=== PATIENT | female | born 1985 | race Caucasian/White ===

== ENCOUNTER → 2018-01-21 12:39 | Outpatient (CLI) | payer OTHER, SELFPAY ==
--- NOTE | 2018-01-21 12:40 | DI.US.S_ITS ---
PROCEDURE: US PELVIC COMPLETE INDICATIONS: PELVIC PAIN, CHECK IUD POSITION TECHNIQUE: Real-time scanning was performed of the pelvic organs, with image documentation. Additional endovaginal scanning was necessary due to incomplete visualization of the adnexal and endometrial structures by transabdominal scanning. COMPARISON: [facility], , PELVIC COMPLETE, 07/24/2016, 12:26. FINDINGS: Transabdominal scanning: Limited scanning through the kidneys shows no hydronephrosis. Left kidney however is only partially visualized No pathologic free abdominal or pelvic fluid. Endovaginal scanning: Uterus: Uterus is normal in size at 10.2 x 4.0 x 5.1 cm. The endometrium measures not well-seen due to IUD mm in combined thickness. IUD appears appropriately positioned Ovaries: Right ovary measures 3.0 x 3.1 x 2.6 cm unremarkable. Left ovary measures 3.1 x 3.1 x 1.8 cm and is only seen transabdominally, otherwise unremarkable IMPRESSION: Appropriately positioned IUD Dictated by: Morris Mcallister M.D. on 01/21/2018 at 15:06 Approved by: Morris Mcallister M.D. on 01/21/2018 at 15:08
== END ==
PROVIDERS: PCP Internal Medicine; Visit Provider Internal Medicine
DX: R10.2 Pelvic and perineal pain (principal); Z97.5 Presence of (intrauterine) contraceptive device
CPT/HCPCS: 76830; 76856

== ENCOUNTER → 2018-03-27 15:06 | Outpatient (CLI) | payer OTHER, SELFPAY ==
--- NOTE | 2018-03-27 15:12 | DI.RAD.S_ITS ---
PROCEDURE: XR LUMBAR SPINE MIN 4V INDICATIONS: pain TECHNIQUE: 5 views of the lumbar spine were acquired. COMPARISON: None. FINDINGS: Bones: 5 nonrib-bearing vertebrae are present. There is normal bony alignment. No vertebral body compression fractures. No suspicious bony lesions. Soft tissues: Overlying bowel gas pattern is normal. No suspicious soft tissue calcifications. Oblique images: No pars defects. IMPRESSION: Normal for age, source of current symptoms is not seen. Dictated by: Bakari Mendiola M.D. on 03/27/2018 at 15:51 Approved by: Bakari Mendiola M.D. on 03/27/2018 at 15:51
== END ==
PROVIDERS: PCP Family Medicine; Visit Provider Family Medicine
DX: T14.8XXA Other injury of unspecified body region, initial encounter (principal); V89.2XXA Person injured in unspecified motor-vehicle accident, traffic, initial encounter
CPT/HCPCS: 72110

== ENCOUNTER → 2018-09-12 10:16 | Outpatient (CLI) | payer OTHER, SELFPAY | PROVIDERS: PCP Family Medicine; Visit Provider Physician Assistant | DX: R30.0 Dysuria (principal); R10.9 Unspecified abdominal pain | CPT/HCPCS: 87210 ==

== ENCOUNTER → 2018-09-12 11:57 | Outpatient (CLI) | payer OTHER, SELFPAY ==
[2018-09-12 13:02] LABS: Add Manual Diff / Slide Review NO; Basophils Absolute Auto 0 /uL (0-100); Basophils Percent Auto 0.8 % (0-2); Eosinophils Absolute Auto 100 /uL (0-450); Eosinophils Percent Auto 1.1 % (2-4); Hematocrit 40.7 % (36-46); Hemoglobin 13.8 g/dL (12.0-16.0); Lymphocytes Absolute Auto 2200 /uL (1100-4500); Lymphocytes Percent Auto 43.1 % (25-40); Mean Corpuscular Hemoglobin 30.3 PG (26-34); Mean Corpuscular Volume 88.9 fL (80-100); Monocytes Absolute Auto 500 /uL (0-900); Monocytes Percent Auto 9.7 % (3-14); Neutrophils Absolute Auto 2300 /uL (1500-7000); Neutrophils Percent Auto 45.3 % (50-75); Platelet Count 225 X10^3/uL (150-400); Red Blood Cell Count 4.57 X10^6/uL (4.0-5.2); White Blood Cell Count 5.1 X10^3/uL (4.5-11.0)
[2018-09-12 13:34] LABS: Alanine Aminotransferase 178 IU/L (9-52); Albumin Globulin Ratio 1.8 (1.0-2.8); Alkaline Phosphatase 46 U/L (38-126); Amylase 73 U/L (30-110); Aspartate Aminotransferase 113 IU/L (14-36); Bilirubin Total 0.5 mg/dL (0.2-1.3); Blood Urea Nitrogen 12 mg/dL (7-17); Calcium 10.1 mg/dL (8.4-10.2); Carbon Dioxide 29 mmol/L (22-32); Chloride 101 mmol/L (98-107); Estimated Glomerular Filt Rate > 60.0 mL/min (>60); Globulin 2.8 g/dL (1.7-4.1); Glucose 76 mg/dL (70-100); HEMOLYSIS < 15 (0-50); Lipase 122 U/L (23-300); Potassium 4.7 mmol/L (3.4-5.1); Sodium 140 mmol/L (137-145); Total Protein 7.8 g/dL (6.3-8.2)
== END ==
PROVIDERS: PCP Internal Medicine; Visit Provider Physician Assistant
DX: R10.9 Unspecified abdominal pain (principal)
CPT/HCPCS: 36415; 80053; 82150; 83690; 85025

== ENCOUNTER 2020-07-22 04:27 | Emergency (ER) | payer OTHER, SELFPAY ==
--- NOTE | 2020-07-22 04:34 | ED.GENADULT ---
HPI - General Adult General Chief complaint: Dental/Oral Stated complaint: tooth pulled tues, still lots of bleeding Time Seen by Provider: 07/22/20 04:33 Source: patient Mode of arrival: Wheelchair Limitations: no limitations History of Present Illness HPI narrative: Patient is a 35-year-old female here for evaluation of pain and bleeding from the site where she had a tooth pulled 2 days ago. She stated that she initially had a root canal that failed and she became infected. She had the tooth pulled 2 days ago by her dental provider. She also mentioned that she thinks she was told that she had a bone graft on was she is not 100% sure this. She states that it it tastes like the blood in her mouth and she also has been spitting up blood. She is not having problems breathing. She is also very concerned about infection. She is also in quite a bit of discomfort. Was not given any pain medication. Related Data Home Medications Medication Instructions Recorded Confirmed levonorgestrel 20 mcg/24 hours (6 INTRAUTERINE each 09/12/18 02/14/19 yrs) 52 mg intrauterine device Allergies Allergy/AdvReac Type Severity Reaction Status Date / Time latex [LATEX] Allergy Mild MILD RASH Verified 02/14/19 09:17 Review of Systems Constitutional Constitutional: Denies fever(s) and Denies headache(s) ENT Ears, Nose, Mouth, and Throat: Reports dental pain, Denies otalgia, Denies facial pain and Denies headache(s) Cardiovascular Cardiovascular: Denies chest pain and Denies dyspnea Respiratory Respiratory: Denies dyspnea Gastrointestinal Gastrointestinal: Denies abdominal pain and Denies change in bowel habits Integumentary/Breasts Skin/Breast: Denies rash Neurologic Neurologic: Denies behavioral changes and Denies headache(s) Psychiatric Psychiatric: Reports anxiety and Denies behavioral changes Hematologic/Lymphatic On Anticoagulants: No Allergic/Immunologic Allergic/Immunologic: Denies urticaria Patient History Medical History Chicken pox Depression (~2005) Headache Kidney stones (~2010) Migraines (~2008) Painful menstrual periods Surgical History (Updated 07/22/20 @ 05:19 by Rikki Pérez DO) Anesthesia History of tonsillectomy (~2001) Status post delivery (10/23/11) Status post delivery (07/14/13) Family History Grandfather No problems noted. Social History Smoking Status: Never smoker Smoking Status: Never smoker Exam Initial Vital Signs Initial Vital Signs: Vital Signs Temperature 97 F L 07/22/20 04:35 Pulse Rate 107 H 07/22/20 04:35 Respiratory Rate 17 07/22/20 04:35 Blood Pressure 160/96 H 07/22/20 04:35 Pulse Oximetry 100 07/22/20 04:35 Const General: cooperative and anxious Limitations: mental status not altered HENMT Head: normal to inspection Nose: external nose normal Face and sinus: normal facial exam Mouth: oral mucosae normal, lip normal, tongue normal and No drooling Teeth and gingiva: other (Extraction left lower molar site appears well) Throat: posterior oropharynx normal and no uvular edema Resp Effort & Inspection: normal respiratory effort Skin Lesions: no lesions Rashes: no rashes Neuro General: patient alert and patient awake Psych Speech and Movement: restless Affect: anxious affect Course Orders Ordered: Discontinued Medications Hydrocodone Bitart/Acetaminophen (Hydrocodone/Acet 5/325 Tablet) 1 tab PO NOW ONE Stop: 07/22/20 04:44 Last Admin: 07/22/20 04:47 Dose: 1 tab Documented by: DBROYLE Hydrocodone Bitart/Acetaminophen (Hydrocodone/Acet 5/325 Prepack) 1 bottle MISC SEEINSTR ONE Stop: 07/22/20 05:10 Last Admin: 07/22/20 05:15 Dose: 1 bottle Documented by: Vital Signs Vital signs: Vital Signs - 8 hr 07/22/20 04:35 07/22/20 05:23 Temperature 97 F L Pulse Rate 107 H 81 Respiratory Rate 17 18 Blood Pressure 160/96 H 127/68 Pulse Oximetry 100 99 Medical Decision Making MDM Narrative Medical decision making narrative: The extraction site appears well and as expected for 2 days postprocedure. The stitches are in place. There does appear to be a material in the tooth cavity. Most likely a Gelfoam type material. This is sutured into place. There is no active bleeding. The rest of her oral exam is unremarkable as well. She is not having any problems breathing. I do not think that she needs antibiotics. She also seems to be very uncomfortable so will send her home with pain medication. She stated that she was going to contact her dentist later today for follow-up. She is given return precautions and follow-up instructions. She expressed understanding and agreement. Discharge Plan Departure Patient Disposition: Home Clinical Impression: History of recent dental procedure, Pain, dental Instructions: DI for Dental Pain Activity Restrictions/Additional Instructions: The extraction site looks well and looks as expected for being 2 days after the procedure. There was no active bleeding here in the emergency department. There is also no indication of any infection. I recommend that you contact your dental provider later today for a follow-up. You can continue to take 600-800 mg of ibuprofen every 8 hours as needed for discomfort. You can also take Tylenol every 4-6 hours as needed for pain as well. Please follow the instructions on the bottle as the dose of Tylenol varies depending on the formulation that you purchase. Use the pain medication as needed. Return to the emergency department for any new or worsening symptoms Prescriptions: No Action Mirena 20 mcg/24 hours (5 yrs) 52 mg intrauterine device intrauterine RF: 0 Referrals: Fiona Doe ARNP [Primary Care Provider] -
[2020-07-22 04:35] VITALS: BP 160/96; PULSE 107; RESP 17; TEMP 36.1; O2SAT 100; BMI 25.9
[2020-07-22] MEDS: HYDROCODONE/ACET 5/325 TABLET 1 TAB PO (04:47)
[2020-07-22] MEDS: HYDROCODONE/ACET 5/325 PREPACK 1 BOTTLE MISC (05:15)
[2020-07-22 05:23] VITALS: BP 127/68; PULSE 81; RESP 18; O2SAT 99
== END 2020-07-22 05:35 | disposition home or self-care (01) ==
PROVIDERS: Emergency Provider Emergency Medicine; PCP Internal Medicine
DX: K08.89 Other specified disorders of teeth and supporting structures (principal)
CPT/HCPCS: 99283

== ENCOUNTER → 2020-12-11 19:13 | Outpatient (CLI) | payer OTHER, SELFPAY ==
[2020-12-11 19:40] LABS: COVID19 -Nasal RAPID POSITIVE (Negative)
== END ==
PROVIDERS: PCP Internal Medicine; Visit Provider Nurse Practitioner
DX: U07.1 COVID-19 (principal)
CPT/HCPCS: 87635

== ENCOUNTER 2021-08-29 21:51 | Emergency (ER) | payer OTHER, SELFPAY ==
[2021-08-29 21:53] VITALS: BP 117/81; PULSE 115; RESP 18; TEMP 36.7; O2SAT 98
--- NOTE | 2021-08-29 21:58 | DI.RAD.S_ITS ---
PROCEDURE: XR KNEE LT 3V INDICATIONS: fall TECHNIQUE: 3 views of the knee were acquired. COMPARISON: None. FINDINGS: Bones: No fractures or dislocations. No suspicious bony lesions. Soft tissues: No joint effusion. No suspicious soft tissue calcifications. IMPRESSION: 1. No fracture or dislocation. Dictated by: Gordo Broussard M.D. on 08/29/2021 at 23:23 Approved by: Gordo Broussard M.D. on 08/29/2021 at 23:23
--- NOTE | 2021-08-29 21:58 | DI.RAD.S_ITS ---
PROCEDURE: XR HIP W PEL IF DONE LT 2V INDICATIONS: fall TECHNIQUE: AP pelvis with lateral view of the left hip. COMPARISON: None. FINDINGS: Bones: No fractures or dislocations. Pelvic ring appears intact. No suspicious bony lesions. Soft tissues: The visualized bowel gas pattern is normal. No suspicious soft tissue calcifications. IMPRESSION: 1. No fracture or dislocation. Dictated by: Gordo Broussard M.D. on 08/29/2021 at 23:22 Approved by: Gordo Broussard M.D. on 08/29/2021 at 23:23
[2021-08-30] VITALS (12 sets, daily range): BP systolic 117–148; BP diastolic 60–82; PULSE 72–89; O2SAT 97–100
[2021-08-30] MEDS: ACETAMINOPHEN 325 MG TABLET PO (00:14)
[2021-08-30] MEDS: IBUPROFEN 400 MG TABLET PO (00:15)
--- NOTE | 2021-08-30 02:40 | ED.LOWEXIN ---
HPI - Extremity Injury (Lower) General Chief Complaint: Extremity Injury, Lower Stated Complaint: FELL OF STAIRS LEFT SIDE INJURY Time Seen by Provider: 08/30/21 00:09 Source: patient Mode of arrival: Ambulatory History of Present Illness HPI Narrative: Otherwise healthy 36-year-old woman who was rushing down a flight of 5 stairs into her garage when she slipped and fell landing on her left flank and outer left hip. She was able to get up but then slit of give and re-injuring the same area. She had difficulty getting up this time and presents to the emergency room complaining of left hip flank and knee pain. She denies hitting her head and she is not currently on blood thinners. She has no chest pain or shortness of breath but is finding that she is having significant flank in hip pain to the point that it is difficult to stand on the leg. She is able to walk moved in with some pain appreciated. She describes no loss of consciousness, no abdominal pain no headache. She is complaining of significant pain in describes as a 9/10 in the large ecchymotic area over her outer left thigh. She has had x-rays of the hip pelvis and knee all of which were unremarkable but she still feels that she is unable to bear weight. Related Data Home Medications Medication Instructions Recorded Confirmed levonorgestrel 20 mcg/24 hours (7 INTRAUTERINE each 09/12/18 12/11/20 yrs) 52 mg intrauterine device (Mirena) Previous Rx's Medication Instructions Recorded oxycodone-acetaminophen 5 mg-325 1 tab PO Q6H PRN #14 tab 08/30/21 mg tablet Allergies Allergy/AdvReac Type Severity Reaction Status Date / Time latex [LATEX] Allergy Mild MILD RASH Verified 12/11/20 19:27 Review of Systems Review of Systems Narrative: Remainder of complete review of systems is otherwise unremarkable except for that included in the HPI. Patient History Medical History Chicken pox Depression (~2005) Headache Kidney stones (~2010) Migraines (~2008) Painful menstrual periods Surgical History Anesthesia History of tonsillectomy (~2001) Status post delivery (10/23/11) Status post delivery (07/14/13) Family History Grandfather No problems noted. Social History Smoking Status: Never smoker Smoking Status: Never smoker alcohol intake frequency: a few times a month Substance Use Type: does not use Exam Initial Vital Signs Initial Vital Signs: Vital Signs Temperature 98.1 F 08/29/21 21:53 Pulse Rate 115 H 08/29/21 21:53 Respiratory Rate 18 08/29/21 21:53 Blood Pressure 117/81 08/29/21 21:53 Pulse Oximetry 98 08/29/21 21:53 General: Healthy appearing, anxious and in significant pain but Able to give a complete and coherent history. Well-nourished well-developed HEENT: Moist mucous membranes, normal sclera with reactive pupils, Neck: No midline cervical spine tenderness, supple Respiratory: Lungs are clear to auscultation, no wheezing no rales no rhonchi. Full and symmetrical air movement Cardiac: Regular rate and rhythm no murmurs no bruits Chest: No bruising, contusion or tenderness to palpation Abdomen: Soft, nontender, good bowel tones, no flank pain Skin: Warm and dry, no rashes Neurologic: Grossly neurologically intact with no obvious asymmetries or abnormalities Extremities: Minor abrasion to the lateral aspect of the left knee with a large contusion to the left upper outer thigh the suggesting a deeper hematoma with no obvious abrasion. She is in fact able to walk to the bathroom but does have a significantly antalgic gait. Psych: Cooperative, appropriate insight and affect Course Orders Ordered: ED Orders 08/29/21 21:58 XR hip w pel if done LT 2V Stat XR knee LT 3V Stat 08/30/21 03:00 Complete Blood Count AUTO DIFF Stat Comprehensive Metabolic Panel Stat 08/30/21 03:57 CT abdomen pelvis w con Stat 08/30/21 04:20 Ictotest Urine Stat Urine Microscopic Stat Hydromorphone HCl (Hydromorphone 0.5 Mg Inj) 0.5 mg IV Q15MIN PRN PRN Reason: Pain, Last Admin: 08/30/21 03:02 Dose: 0.5 mg Documented by: MICK Discontinued Medications Acetaminophen (Acetaminophen 325 Mg Tablet) 325 mg PO NOW ONE Stop: 08/30/21 00:10 Last Admin: 08/30/21 00:14 Dose: 325 mg Documented by: GREGORY Fentanyl (Fentanyl 100 Mcg/2 Ml Inj) 50 mcg IV NOW ONE Stop: 08/30/21 05:19 Last Admin: 08/30/21 05:23 Dose: 50 mcg Documented by: MICK Sodium Chloride (Normal Saline 0.9%) 1,000 mls @ 1,000 mls/hr IV BOLUS ONE Stop: 08/30/21 03:51 Last Infusion: 08/30/21 05:33 Dose: 0 mls/hr Documented by: Admin: 08/30/21 03:03 Dose: 1,000 mls/hr Documented by: MICK Ibuprofen (Ibuprofen 400 Mg Tablet) 400 mg PO NOW ONE Stop: 08/30/21 00:10 Last Admin: 08/30/21 00:15 Dose: 400 mg Documented by: GREGORY Ondansetron HCl (Ondansetron 4 Mg/2 Ml Inj) 4 mg IV NOW ONE Stop: 08/30/21 02:53 Last Admin: 08/30/21 03:03 Dose: 4 mg Documented by: MICK Vital Signs Vital signs: Vital Signs - 8 hr 08/30/21 00:05 08/30/21 00:06 08/30/21 03:07 Pulse Rate 89 88 81 Blood Pressure 131/63 Pulse Oximetry 99 99 99 08/30/21 03:17 08/30/21 03:30 08/30/21 04:00 Pulse Rate 84 78 81 Blood Pressure 148/82 H 129/68 130/76 Pulse Oximetry 99 97 98 MDM - Extremity Injury (Lower) Lab Data Result diagrams: 08/30/21 03:00 08/30/21 03:00 Labs: Lab Results 08/30/21 08/30/21 08/30/21 Range/Units 03:00 03:00 04:20 WBC 4.9 (4.5-11.0) X10^3/uL RBC 4.48 (4.0-5.2) X10^6/uL Hgb 12.9 (12.0-16.0) g/dL Hct 38.2 (36-46) % MCV 85.2 (80-100) fL MCH 28.7 (26-34) PG MCHC 33.7 (30-36) % RDW 13.6 (11.6-14.8) % Plt Count 284 (150-400) X10^3/uL Neut % (Auto) 47.3 L (50-75) % Lymph % (Auto) 40.1 H (25-40) % [place] % (Auto) 10.3 (3-14) % Eos % (Auto) 1.2 L (2-4) % Baso % (Auto) 1.1 (0-2) % Neut # (Auto) 2300 (0019-9676) /uL Lymph # (Auto) 1900 (6212-0977) /uL [place] # (Auto) 500 (0-900) /uL Eos # (Auto) 100 (0-450) /uL Baso # (Auto) 100 (0-100) /uL Sodium 140 (137-145) mmol/L Potassium 3.8 (3.4-5.1) mmol/L Chloride 104 (98-107) mmol/L Carbon Dioxide 27 (22-32) mmol/L BUN 14 (7-17) mg/dL Creatinine 0.60 (0.52-1.04) mg/dL Estimated GFR > 60 (>60) mL/min BUN/Creatinine Ratio 23.3 H (6-22) Glucose 118 H (70-100) mg/dL Calcium 8.9 (8.4-10.2) mg/dL Total Bilirubin 0.3 (0.2-1.3) mg/dL AST 54 H (14-36) IU/L ALT 67 H (<35) IU/L Alkaline Phosphatase 48 (38-126) U/L Total Protein 7.5 (6.3-8.2) g/dL Albumin 4.5 (3.5-5.0) g/dL Globulin 3.0 (1.7-4.1) g/dL Albumin/Globulin Ratio 1.5 (1.0-2.8) Ur Bilirubin Confirm (Negative) Urine RBC None seen (0-5/HPF) Urine WBC None seen (0-5/HPF) Ur Squamous Epith Cells 0-1 /hpf (0-5/HPF) Urine Bacteria Few (2-10) H (None) Urine Mucus 3+ H (Negative) Ur Culture Indicated? Cult not indicated 08/30/21 Range/Units 04:20 WBC (4.5-11.0) X10^3/uL RBC (4.0-5.2) X10^6/uL Hgb (12.0-16.0) g/dL Hct (36-46) % MCV (80-100) fL MCH (26-34) PG MCHC (30-36) % RDW (11.6-14.8) % Plt Count (150-400) X10^3/uL Neut % (Auto) (50-75) % Lymph % (Auto) (25-40) % [place] % (Auto) (3-14) % Eos % (Auto) (2-4) % Baso % (Auto) (0-2) % Neut # (Auto) (6302-5437) /uL Lymph # (Auto) (8003-8262) /uL [place] # (Auto) (0-900) /uL Eos # (Auto) (0-450) /uL Baso # (Auto) (0-100) /uL Sodium (137-145) mmol/L Potassium (3.4-5.1) mmol/L Chloride (98-107) mmol/L Carbon Dioxide (22-32) mmol/L BUN (7-17) mg/dL Creatinine (0.52-1.04) mg/dL Estimated GFR (>60) mL/min BUN/Creatinine Ratio (6-22) Glucose (70-100) mg/dL Calcium (8.4-10.2) mg/dL Total Bilirubin (0.2-1.3) mg/dL AST (14-36) IU/L ALT (<35) IU/L Alkaline Phosphatase (38-126) U/L Total Protein (6.3-8.2) g/dL Albumin (3.5-5.0) g/dL Globulin (1.7-4.1) g/dL Albumin/Globulin Ratio (1.0-2.8) Ur Bilirubin Confirm Negative (Negative) Urine RBC (0-5/HPF) Urine WBC (0-5/HPF) Ur Squamous Epith Cells (0-5/HPF) Urine Bacteria (None) Urine Mucus (Negative) Ur Culture Indicated? Point of Care Testing Test Results Negative Urine Dip Bedside Urine Glucose Negative Bedside Urine Bilirubin ++ 2 Bedside Urine Ketone - Negative Urine Specific [place] 1.030 Bedside Urine Occult Blood - Negative Bedside Urine pH 6.0 Bedside Urine Protein + 30 Bedside Urine Urobilinogen +/- 1mg Bedside Urine Nitrite - Negative Bedside Urine Leukocytes - Negative Esterase Imaging Data X-ray hip: Radiologist's Impression: INDINGS:? ? Bones:? No fractures or dislocations.? Pelvic ring appears intact.? No suspicious bony lesions.? ? Soft tissues:? The visualized bowel gas pattern is normal.? No suspicious soft tissue calcifications.? ? ? IMPRESSION:? ? 1. No fracture or dislocation. ? ? ? Dictated by: Gordo Broussard M.D. on 08/29/2021 at 23:22 ? ? X-ray knee: Radiologist's Impression: ECHNIQUE:? 3 views of the knee were acquired.? ? COMPARISON:? None. ? FINDINGS:? ? Bones:? No fractures or dislocations.? No suspicious bony lesions.? ? Soft tissues:? No joint effusion.? No suspicious soft tissue calcifications.? ? ? IMPRESSION:? ? 1. No fracture or dislocation. ? ? Dictated by: Gordo Broussard M.D. on 08/29/2021 at 23:23? MDM Narrative Medical decision making narrative: 36-year-old woman with a fall down 5 stairs twice in the same day complaining of left flank pain and difficulty walking. She is able to bear weight. X-rays and follow-up CT are unremarkable. There is no new lumbar compression fractures, no Pap thick ring or hip fracture. No expanding hematoma in the soft tissue of the upper thigh and knee x-rays are equally unremarkable. Clearly she is had significant injury to the areas that will require a bit of healing and may benefit from oral pain medications. At this point she has no other orthopedic injuries or need for splinting or casting. Reassurance is given. Questions answered and she is safe for home discharge Discharge Plan Departure Patient Disposition: Home Clinical Impression: Fall down stairs Qualifiers: Encounter type: initial encounter Qualified Code(s): W10.8XXA - Fall (on) (from) other stairs and steps, initial encounter Contusion of hip Qualifiers: Encounter type: initial encounter Laterality: left Qualified Code(s): S70.02XA - Contusion of left hip, initial encounter Contusion of knee Qualifiers: Encounter type: initial encounter Laterality: left Qualified Code(s): S80.02XA - Contusion of left knee, initial encounter Instructions: DI for Hip Pain Activity Restrictions/Additional Instructions: Thank you for coming in today I am sorry that you fell down the stairs and then seemingly did it again. You are going to have multiple aches and pains getting worse over the next 24 hours Your clinical exam as well as imaging studies were reassuring. You do not have any new compression fractures in her spine. You do not have any internal bleeding. There does not appear to be any kidney damage. Did not have any hairline fractures of your pelvic ring, overall pelvis or the upper portion of your hip bone. There is no evidence of a large developing blood clot underneath the contusion to the outer portion of your left thigh. Using 400 mg of ibuprofen (2 [id number] pills) and 1 Tylenol every 6 hours can be very helpful in controlling pain. For severe pain, using 400 mg of ibuprofen and 1 Percocet will help. Ice to the hip low back and knee can be helpful. Being active and moving even knowing it does hurt actually improves overall recovery time. 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 If things are still not improving or getting worse by Sunday, it would be very appropriate to return to the ED for further evaluation Prescriptions: New oxycodone-acetaminophen 5-325 mg tablet 1 tab PO Q6H PRN (Reason: pain) Qty: 14 0RF No Action Mirena 20 mcg/24 hours (5 yrs) 52 mg intrauterine device intrauterine 0RF Referrals: Fiona Doe ARNP [Primary Care Provider] -
[2021-08-30] MEDS: HYDROMORPHONE 0.5 MG INJ IV (03:02)
[2021-08-30] MEDS: ONDANSETRON 4 MG/2 ML INJ IV (03:03)
[2021-08-30] MEDS: SODIUM CHLORIDE 0.9% 1,000 ML 1000 ML IV (03:03)
--- NOTE | 2021-08-30 03:57 | DI.CT.S_ITS ---
PROCEDURE: CT ABDOMEN PELVIS W CON INDICATIONS: trauma, low back midline pain, pelvic/left hip pain TECHNIQUE: After the administration of intravenous contrast, axial sections acquired from the lung bases to the pubic symphysis. Coronal and sagittal reformats were performed. For radiation dose reduction, the following was used: automated exposure control, adjustment of mA and/or kV according to patient size. COMPARISON: None. FINDINGS: Image quality: Excellent. Lung bases: Lung bases are clear. Heart: No significant findings. ABDOMEN: Liver: Unremarkable. Gallbladder: Unremarkable. Biliary ducts: Unremarkable. Pancreas: Unremarkable. Spleen: Unremarkable. Adrenal Glands: Unremarkable. Kidneys and Ureters: Kidneys are symmetric in size and enhancement, and there is no obstructive uropathy. No perinephric inflammatory changes. Ureters are normal in course and caliber. Stomach and Bowel: Stomach, small bowel loops, and colon are unremarkable. Normal appendix. Peritoneum: No abnormal intraperitoneal fluid. No free air. Ventral Wall: Tiny fat containing umbilical hernia without acute inflammation. Abdominal Nodes: No retroperitoneal or mesenteric adenopathy by size criteria. Vessels: Aorta and inferior vena cava are normal in size. PELVIS: Pelvic Organs: Unremarkable. Bladder: Unremarkable. Pelvic Nodes: No enlarged lymph nodes. Miscellaneous: No hernias are seen. Bones: Unremarkable. IMPRESSION: CT abdomen and pelvis without acute abnormalities. No significant discrepancy with the mini shifter radiology preliminary report. Dictated by: Issac rBooks M.D. on 08/30/2021 at 7:09 Approved by: Issac Brooks M.D. on 08/30/2021 at 7:12
[2021-08-30 04:06] LABS: Add Manual Diff / Slide Review NO; Basophils Absolute Auto 100 /uL (0-100); Basophils Percent Auto 1.1 % (0-2); Eosinophils Absolute Auto 100 /uL (0-450); Eosinophils Percent Auto 1.2 % (2-4); Hematocrit 38.2 % (36-46); Hemoglobin 12.9 g/dL (12.0-16.0); Lymphocytes Absolute Auto 1900 /uL (1100-4500); Lymphocytes Percent Auto 40.1 % (25-40); Mean Corpuscular HGB Conc 33.7 % (30-36); Mean Corpuscular Hemoglobin 28.7 PG (26-34); Mean Corpuscular Volume 85.2 fL (80-100); Monocytes Absolute Auto 500 /uL (0-900); Monocytes Percent Auto 10.3 % (3-14); Neutrophils Absolute Auto 2300 /uL (1500-7000); Neutrophils Percent Auto 47.3 % (50-75); Platelet Count 284 X10^3/uL (150-400); Red Blood Cell Count 4.48 X10^6/uL (4.0-5.2); Red Cell Distribution Width 13.6 % (11.6-14.8); White Blood Cell Count 4.9 X10^3/uL (4.5-11.0)
[2021-08-30 04:17] LABS: Alanine Aminotransferase 67 IU/L (<35); Albumin 4.5 g/dL (3.5-5.0); Albumin Globulin Ratio 1.5 (1.0-2.8); Alkaline Phosphatase 48 U/L (38-126); Aspartate Aminotransferase 54 IU/L (14-36); BUN Creatinine Ratio 23.3 (6-22); Bilirubin Total 0.3 mg/dL (0.2-1.3); Blood Urea Nitrogen 14 mg/dL (7-17); Calcium 8.9 mg/dL (8.4-10.2); Carbon Dioxide 27 mmol/L (22-32); Chloride 104 mmol/L (98-107); Estimated Glomerular Filt Rate > 60 mL/min (>60); Glucose 118 mg/dL (70-100); HEMOLYSIS < 15 (0-50); Potassium 3.8 mmol/L (3.4-5.1); Sodium 140 mmol/L (137-145); Total Protein 7.5 g/dL (6.3-8.2)
[2021-08-30 04:44] LABS: Bacteria Urine Few (2-10); Ictotest Urine Negative (Negative); RBC Urine None Seen (0-5/HPF); Squamous Epithelial Cell Urine 0-1 /HPF (0-5/HPF); WBC Urine None Seen (0-5/HPF)
[2021-08-30 04:45] LABS: Culture Indicated Urine Cult Not Indicated; Mucus Urine 3+ (Negative)
[2021-08-30] MEDS: fentaNYL 100 MCG/2 ML INJ 50 MCG IV (05:23)
== END 2021-08-30 06:58 | disposition home or self-care (01) ==
PROVIDERS: Emergency Provider Emergency Medicine; PCP Internal Medicine
DX: S70.02XA Contusion of left hip, initial encounter (principal); S80.02XA Contusion of left knee, initial encounter; W10.8XXA Fall (on) (from) other stairs and steps, initial encounter
CPT/HCPCS: 36415; 73502; 73562; 74177; 80053; 81003; 81015; 81025; 85025; 96374; 96375; 99284; J1170; J2405; J3010; Q9967

== ENCOUNTER 2021-11-08 17:25 | Emergency (ER) | payer OTHER, SELFPAY ==
[2021-11-08] VITALS (96 sets, daily range): BP systolic 107–149; BP diastolic 49–87; PULSE 88–127; RESP 14–91; TEMP 36.9; O2SAT 96–100
--- NOTE | 2021-11-08 17:34 | DI.CT.S_ITS ---
PROCEDURE: CT STROKE INDICATIONS: seizure, weakness/twitching left side TECHNIQUE: Noncontrast 4.5 mm thick angled axial sections acquired from the foramen magnum to the vertex, with coronal reformats. For radiation dose reduction, the following was used: automated exposure control, adjustment of mA and/or kV according to patient size. COMPARISON: None. FINDINGS: Image quality: Excellent. CSF spaces: Basal cisterns are patent. No extra-axial fluid collections. The ventricles are symmetric in size and shape. Brain: No intracranial bleeds or masses. There is cerebral volume loss for age, with resultant ventricular and sulcal prominence. There are periventricular and deep white matter chronic small vessel ischemic changes. There is intracranial internal carotid artery atherosclerosis. Skull and face: Calvarium and visualized facial bones appear intact, without suspicious lesions. Sinuses: Visualized sinuses and mastoids are clear. IMPRESSION: No acute intracranial disease process. Findings discussed with Dr. Duke on November 08, 2021 at 4:54 p.m.. This study fulfills neurological imaging criteria for inclusion or exclusion of acute stroke therapies based on available published neurological guidelines. Dictated by: Ara Al MD, PhD on 11/08/2021 at 16:53 Approved by: Ara Al MD, PhD on 11/08/2021 at 16:56
--- NOTE | 2021-11-08 17:45 | PC.NURSE ---
Pt having tremor/involuntary movements on left side of face, arm and leg with weakness. Speech is delayed and at times hard to understand. Pt is alert and oriented to situation. Concerned about her kids and asks why is this happening? Reassured pt that we are running lab work, have already obtained CT scans.
[2021-11-08 17:52] LABS: Add Manual Diff / Slide Review NO; Basophils Absolute Auto 0 /uL (0-100); Basophils Percent Auto 0.8 % (0-2); Eosinophils Absolute Auto 100 /uL (0-450); Eosinophils Percent Auto 0.9 % (2-4); Hematocrit 36.1 % (36-46); Hemoglobin 12.5 g/dL (12.0-16.0); Lymphocytes Absolute Auto 1900 /uL (1100-4500); Lymphocytes Percent Auto 31.4 % (25-40); Mean Corpuscular HGB Conc 34.5 % (30-36); Mean Corpuscular Volume 84.2 fL (80-100); Monocytes Absolute Auto 600 /uL (0-900); Monocytes Percent Auto 9.2 % (3-14); Neutrophils Absolute Auto 3500 /uL (1500-7000); Neutrophils Percent Auto 57.7 % (50-75); Platelet Count 240 X10^3/uL (150-400); Red Blood Cell Count 4.29 X10^6/uL (4.0-5.2); Red Cell Distribution Width 13.7 % (11.6-14.8); White Blood Cell Count 6.1 X10^3/uL (4.5-11.0)
--- NOTE | 2021-11-08 17:56 | DI.CT.S_ITS ---
PROCEDURE: CT ANGIO HEAD AND NECK INDICATIONS: left weakness, shaking, twitching TECHNIQUE: After the administration of intravenous contrast, 1 mm thick sections acquired from the aortic arch through the [place] of [place]. Post-contrast 4.5 mm thick sections then re-acquired from the foramen magnum to the vertex. 3-dimensional [id number] (MIP) and/or volume rendering reformats were acquired of the central intracranial vasculature and neck separately. For radiation dose reduction, the following was used: automated exposure control, adjustment of mA and/or kV according to patient size. COMPARISON: [facility], CT, CT STROKE, 11/08/2021, 17:45. FINDINGS: Image quality: Excellent. BRAIN: CSF spaces: Ventricles are normal in size and shape. Basal cisterns are patent. No extra-axial fluid collections. Brain: No midline shift. No intracranial bleeds or masses. Thakur-white matter interface appears intact. Skull and face: Calvarium and facial bones appear intact, without suspicious lesions. Orbits appear normal. Sinuses: Sinuses and mastoids are clear. HEAD CT ANGIOGRAPHY: Anterior circulation: Intracranial internal carotid arteries are normal in size and flow. The flow within the paired anterior cerebral arteries is normal and symmetric. The flow within the middle cerebral arteries is normal and symmetric. The anterior communicating artery is seen. No aneurysms are seen. Posterior circulation: Visualized portions of the vertebral arteries demonstrate normal caliber, and join to form a normal appearing basilar artery. Flow within the posterior cerebral arteries is normal and symmetric. No aneurysms are seen. Dural sinuses demonstrate normal postcontrast enhancement. NECK CT ANGIOGRAPHY: Carotid system: The great vessels demonstrate a conventional anatomy as they arise from the aortic arch. The origins of the common carotid arteries appear patent. The common carotid arteries demonstrate normal caliber and courses. The bifurcation regions are both widely patent. The internal carotid arteries demonstrate normal calibers and courses. Posterior circulation: The origins of the vertebral arteries both appear widely patent. The more superior extracranial portions of both vertebral arteries also demonstrate normal courses and calibers. They join to form a normal appearing basilar artery. Soft tissues: Visualized neck soft tissues demonstrate no suspicious abnormalities. Bones: No suspicious bony lesions. Visualized cervical spine appears normally aligned. IMPRESSION: 1. No acute intracranial disease process. 2. No large vessel occlusion, vascular stenosis, vascular dissection or aneurysm. Any quantitative measurements of stenosis were performed using NASCET criteria. Dictated by: Ara Al MD, PhD on 11/08/2021 at 17:05 Approved by: Ara Al MD, PhD on 11/08/2021 at 17:15
--- NOTE | 2021-11-08 17:58 | ED_ITS ---
HPI - Altered Mental Status <Tere Duke DO - Last Filed: 11/14/21 05:02> General Chief Complaint: Altered Mental Status Stated Complaint: Seizure, found down Time Seen by Provider: 11/08/21 17:34 Source: EMS Mode of arrival: Wheelchair History of Present Illness HPI narrative: This is a 36-year-old female with history of anxiety on paroxetine, prior ETOH abuse who was reportedly sober for at least 3 weeks. Patient today was at home with her 2 young children when she slumped to the floor, had generalized s haking. Children ran to the neighbor's house they returned and patient was put on her back and EMS was contacted. EMS states she seemed altered but was interactive. She had appeared to be left-sided weakness or difficulty with movement of the left side was able to move her right side. She has twitching of face and extremities as well. This seemed to be intermittent and improved with benzodiazepines. Patient's glucose in the field was 100 range patient has never had any prior episodes in the past. She is not able to verbalize but she is able to interact with me to give yes no and confirms her history, her only medication is paroxetine denies surgery. Denies any recent alcohol use, denies active tobacco or illicit use. Patient attempts to talk but does not seem able to do this. According to her she is never had any sort of episode like this before. She has been stressed recently but no other recent changes. She is not had any fevers, no recent chest pain, shortness of breath no persistent vomiting or other GI symptoms appreciated. She indicates she has a headache t eli. Related Data Home Medications Medication Instructions Recorded Confirmed levonorgestrel 20 mcg/24 hours (7 intrauterine 09/12/18 12/11/20 yrs) 52 mg intrauterine device (Mirena) Previous Rx's Medication Instructions Recorded oxycodone-acetaminophen 5 mg-325 1 tab PO Q6H PRN pain #14 tabs 08/30/21 mg tablet epinephrine 0.3 mg/0.3 mL 0.3 mg (0.3 mL) IM Q5-15M PRN 11/12/21 injection, auto-injector anaphylaxis #2 ea Allergies Allergy/AdvReac Type Severity Reaction Status Date / Time latex [LATEX] Allergy Mild MILD RASH Verified 11/12/21 15:02 Review of Systems <Tere Duke - Last Filed: 11/14/21 05:02> Review of Systems ROS Unobtainable: All systems reviewed & are unremarkable except as noted in HPI and below Patient History <Tere Duke - Last Filed: 11/14/21 05:02> Medical History Chicken pox Depression (~2005) Headache Kidney stones (~2010) Migraines (~2008) Painful menstrual periods Surgical History Anesthesia History of tonsillectomy (~2001) Status post delivery (10/23/11) Status post delivery (07/14/13) Family History Grandfather No problems noted. Social History Smoking Status: Never smoker Smoking Status: Never smoker alcohol intake frequency: 0-2 drinks per day Substance Use Type: does not use Exam <Teresanam Duke - Last Filed: 11/14/21 05:02> Narrative Exam Narrative: GEN: well nourished, well appearing female, alert, appears oriented is able to interact but is unable to verbalize, patient appears to be in moderate to severe distress. HEENT: Atraumatic, pupils are equal round reactive to light, extraocular movements are intact, nares are clear, TMs are clear with no fluid, there is no conjunctival pallor. Throat is clear without any exudates, erythema, tonsillar enlargement or uvular deviation, no clear facial droop patient does or spasm like change of her left cheek which seems involuntary, she does smile on command. She attempts to stick her tongue out as well. HEART: Regular rate and rhythm without murmur, clicks, rubs. Pulses equal bilateral upper and lower extremities. LUNGS:Lungs clear to auscultation, no wheezes, rales, crackles, chest moves symmetrically, patient has some mild tachypnea, no accessory muscle use. Does seem to be able to swallow her secretions. ABD:bowel sounds normal, soft, non-tender, no guarding, rebound, rigidity, no masses noted, no hepatosplenomegaly :No CVA tenderness, MSCL: Non-tender, no muscle atrophy patient has movement of right upper and low er extremity she has tonic-clonic type movement of her left upper extremity and rigidity for left lower extremity with twitching of her left cheek. She is unable to verbally express herself but does attempt. NEURO:CN 2-12 intact, sensation normal, reflexes 2/4 upper and lower extremities. Patient unable to perform [id number] or heel-leroy. SKIN: Rash, erythema or other skin changes. Initial Vital Signs Initial Vital Signs: Vital Signs Temperature 98.5 F 11/08/21 17:30 Pulse Rate 112 H 11/08/21 17:30 Respiratory Rate 32 H 11/08/21 17:30 Blood Pressure 125/78 11/08/21 17:30 Pulse Oximetry 99 11/08/21 17:30 Oxygen Delivery Method 11/08/21 17:30 <Tomasz Gutierrez MD - Last Filed: 11/09/21 03:04> Initial Vital Signs Initial Vital Signs: Vital Signs Temperature 98.5 F 11/08/21 17:30 Pulse Rate 112 H 11/08/21 17:30 Respiratory Rate 32 H 11/08/21 17:30 Blood Pressure 125/78 11/08/21 17:30 Pulse Oximetry 99 11/08/21 17:30 Oxygen Delivery Method 11/08/21 17:30 Procedures <Tere Duke DO - Last Filed: 11/14/21 05:02> Intubation Time of Intubation: 20:31 sedative: Etomidate Mg Given: 10 paralytic: Succinylcholine Mg Given: 150 Laryngoscope: fiber optic video scope (glidoscope) ET Tube Size: 7.5 ET Tube Uncuffed: No Tube Secured Location: teeth Tube Placement Confirmation: Visualized tube passing through cords, Equal breath sounds bilaterally, No breath sounds over epigastrium, Confirmation by capnometry and Chest Xray Patient Tolerated Procedure: Well Intubation Complications: none Scores <Tere Duke DO - Last Filed: 11/14/21 05:02> GCS [place] coma scale eye opening: Spontaneous [place] coma scale verbal response: Sounds [place] coma scale motor response: Obey commands [place] coma scale total score: 12 <Tomasz Gutierrez MD - Last Filed: 11/09/21 03:04> GCS [place] coma scale total score: 12 Course <Tere Duke DO - Last Filed: 11/14/21 05:02> Orders Ordered: Discontinued Medications Etomidate (Etomidate 2 Mg/Ml 10 Ml Vial) 10 mg IV NOW ONE Stop: 11/08/21 18:36 Last Admin: 11/08/21 18:38 Dose: 10 mg Documented By: DEEPAK Fentanyl (Fentanyl 100 Mcg/2 Ml Inj) 50 mcg IV Q20MIN PRN PRN Reason: Pain, Severe (7-10) Last Admin: 11/08/21 23:21 Dose: 50 mcg Documented By: Admin: 11/08/21 21:03 Dose: 50 mcg Documented By: Admin: 11/08/21 20:15 Dose: 50 mcg Documented By: DEEPAK Sodium Chloride (Normal Saline 0.9%) 1,000 mls @ 150 mls/hr IV CONT NATE Last Infusion: 11/09/21 00:04 Dose: 0 mls/hr Documented By: Admin: 11/08/21 22:31 Dose: 150 mls/hr Documented By: Infusion: 11/08/21 22:31 Dose: 150 mls/hr Documented By: Admin: 11/08/21 18:07 Dose: 150 mls/hr Documented By: DEEPAK Levetiracetam 1,000 mg/ Sodium (Chloride) 110 mls @ 440 mls/hr IV NOW ONE Stop: 11/08/21 18:07 Last Infusion: 11/08/21 18:30 Dose: 0 mls/hr Documented By: Admin: 11/08/21 18:15 Dose: 440 mls/hr Documented By: DEEPAK Propofol (Propofol) 1,000 mg in 100 mls @ 2.354 mls/hr IV TITRATE NATE; Protocol Last Titration: 11/09/21 00:05 Dose: 0 mcg/kg/min, 0 mls/hr Documented By: Titration: 11/08/21 22:04 Dose: 55 mcg/kg/min, 25.895 mls/hr Documented By: Admin: 11/08/21 21:18 Dose: 60 mcg/kg/min, 28.25 mls/hr Documented By: Titration: 11/08/21 21:18 Dose: 60 mcg/kg/min, 28.25 mls/hr Documented By: Titration: 11/08/21 21:03 Dose: 60 mcg/kg/min, 28.25 mls/hr Documented By: Titration: 11/08/21 20:42 Dose: 55 mcg/kg/min, 25.895 mls/hr Documented By: Titration: 11/08/21 20:12 Dose: 50 mcg/kg/min, 23.541 mls/hr Documented By: Titration: 11/08/21 20:05 Dose: 45 mcg/kg/min, 21.187 mls/hr Documented By: Titration: 11/08/21 19:56 Dose: 40 mcg/kg/min, 18.833 mls/hr Documented By: Titration: 11/08/21 19:49 Dose: 35 mcg/kg/min, 16.479 mls/hr Documented By: Titration: 11/08/21 19:28 Dose: 30 mcg/kg/min, 14.125 mls/hr Documented By: Titration: 11/08/21 18:54 Dose: 19.96 mcg/kg/min, 9.4 mls/hr Documented By: Admin: 11/08/21 18:46 Dose: 5 mcg/kg/min, 2.354 mls/hr Documented By: SB Lorazepam 20 mg/ Sodium (Chloride) 100 mls @ 3.924 mls/hr IV TITRATE NATE; Protocol Midazolam HCl 50 mg/ Dextrose 250 mls @ 25 mls/hr IV TITRATE NATE; Protocol Last Titration: 11/09/21 00:06 Dose: 0 mg/hr, 0 mls/hr Documented By: Titration: 11/08/21 20:12 Dose: 8 mg/hr, 40 mls/hr Documented By: Titration: 11/08/21 20:00 Dose: 7 mg/hr, 35 mls/hr Documented By: Titration: 11/08/21 19:40 Dose: 6 mg/hr, 30 mls/hr Documented By: Titration: 11/08/21 19:21 Dose: 5 mg/hr, 25 mls/hr Documented By: Titration: 11/08/21 19:15 Dose: 2 mg/hr, 10 mls/hr Documented By: Admin: 11/08/21 19:11 Dose: 5 mg/hr, 25 mls/hr Documented By: DEEPAK Levetiracetam 2,000 mg/ Sodium (Chloride) 120 mls @ 480 mls/hr IV NOW ONE Stop: 11/08/21 21:12 Last Infusion: 11/08/21 22:29 Dose: 0 mls/hr Documented By: Admin: 11/08/21 22:03 Dose: 480 mls/hr Documented By: MADY Levetiracetam 1,000 mg/ Sodium (Chloride) 110 mls @ 440 mls/hr IV NOW ONE Stop: 11/08/21 22:14 Last Admin: 11/08/21 22:06 Dose: Not Given Documented By: MADY Levetiracetam (Levetiracetam 500 Mg/5 Ml Vial) 1,000 mg IV NOW ONE Stop: 11/08/21 22:01 Last Admin: 11/08/21 22:05 Dose: Not Given Documented By: MADY Midazolam HCl (Midazolam 2 Mg/2 Ml Vial) 1 mg IV NOW ONE Stop: 11/08/21 18:05 Last Admin: 11/08/21 18:07 Dose: 1 mg Documented By: DEEPAK Midazolam HCl (Midazolam 2 Mg/2 Ml Vial) 2 mg IV Q15MIN PRN PRN Reason: agitation /seizure Morphine Sulfate (Morphine 4 Mg/Ml Inj) 4 mg IV NOW ONE Stop: 11/08/21 18:16 Last Admin: 11/08/21 18:23 Dose: 2 mg Documented By: DEEPAK Succinylcholine Chloride (Succinylcholine 200 Mg/10 Ml Vial) 150 mg IV NOW ONE Stop: 11/08/21 18:36 Last Admin: 11/08/21 18:38 Dose: 150 mg Documented By: DEEPAK Vital Signs Vital signs: Vital Signs - 8 hr 11/08/21 19:06 11/08/21 19:06 11/08/21 19:09 Pulse Rate 100 H Respiratory Rate 19 Blood Pressure 140/69 127/58 L Pulse Oximetry 100 11/08/21 19:09 11/08/21 19:10 11/08/21 19:12 Pulse Rate 100 H 99 H Respiratory Rate 21 20 Blood Pressure 136/65 Pulse Oximetry 100 100 11/08/21 19:12 11/08/21 19:15 11/08/21 19:15 Pulse Rate 98 H 97 H Respiratory Rate 18 20 Blood Pressure 137/70 Pulse Oximetry 100 100 11/08/21 19:18 11/08/21 19:18 11/08/21 19:20 Pulse Rate 96 H 97 H Respiratory Rate 22 Blood Pressure 133/70 Pulse Oximetry 100 100 11/08/21 19:21 11/08/21 19:21 11/08/21 19:24 Pulse Rate 96 H Respiratory Rate 22 Blood Pressure 144/72 H 141/68 H Pulse Oximetry 100 11/08/21 19:24 11/08/21 19:25 11/08/21 19:27 Pulse Rate 95 H 94 H Respiratory Rate 21 21 Blood Pressure 144/69 H Pulse Oximetry 100 100 11/08/21 19:27 11/08/21 19:30 11/08/21 19:30 Pulse Rate 92 H 93 H Respiratory Rate 19 20 Blood Pressure 146/71 H Pulse Oximetry 100 100 11/08/21 19:33 11/08/21 19:33 11/08/21 19:35 Pulse Rate 93 H 94 H Respiratory Rate 19 19 Blood Pressure 138/71 Pulse Oximetry 100 100 11/08/21 19:36 11/08/21 19:36 11/08/21 19:39 Pulse Rate 95 H Respiratory Rate 23 Blood Pressure 142/77 H 143/87 H Pulse Oximetry 100 11/08/21 19:39 11/08/21 19:40 11/08/21 19:42 Pulse Rate 100 H 97 H Respiratory Rate 24 23 Blood Pressure 136/80 Pulse Oximetry 100 100 11/08/21 19:42 11/08/21 19:45 11/08/21 19:45 Pulse Rate 97 H 96 H Respiratory Rate 22 21 Blood Pressure 135/79 Pulse Oximetry 99 98 11/08/21 19:48 11/08/21 19:48 11/08/21 19:50 Pulse Rate 96 H 96 H Respiratory Rate 21 19 Blood Pressure 133/77 Pulse Oximetry 98 98 11/08/21 19:51 11/08/21 19:51 11/08/21 19:54 Pulse Rate 95 H Respiratory Rate 19 Blood Pressure 132/77 134/75 Pulse Oximetry 98 11/08/21 19:54 11/08/21 19:55 11/08/21 19:57 Pulse Rate 96 H 96 H Respiratory Rate 19 19 Blood Pressure 137/66 Pulse Oximetry 98 98 11/08/21 19:57 11/08/21 20:00 11/08/21 20:00 Pulse Rate 96 H 98 H Respiratory Rate 21 25 H Blood Pressure 138/67 Pulse Oximetry 98 98 11/08/21 20:03 11/08/21 20:03 11/08/21 20:05 Pulse Rate 97 H 98 H Respiratory Rate 23 24 Blood Pressure 133/65 Pulse Oximetry 98 96 11/08/21 20:06 11/08/21 20:06 11/08/21 20:09 Pulse Rate 96 H 97 H Respiratory Rate 21 25 H Blood Pressure 132/73 Pulse Oximetry 97 98 11/08/21 20:09 11/08/21 20:10 11/08/21 20:12 Pulse Rate 95 H 97 H Respiratory Rate 19 21 Blood Pressure 129/74 Pulse Oximetry 98 98 11/08/21 20:12 11/08/21 20:15 11/08/21 20:15 Pulse Rate 98 H Respiratory Rate Blood Pressure 139/78 137/74 Pulse Oximetry 99 11/08/21 20:18 11/08/21 20:18 11/08/21 20:20 Pulse Rate 99 H 99 H Respiratory Rate Blood Pressure 135/74 Pulse Oximetry 98 99 11/08/21 20:21 11/08/21 20:21 11/08/21 20:24 Pulse Rate 95 H Respiratory Rate 18 Blood Pressure 124/69 120/68 Pulse Oximetry 96 11/08/21 20:24 11/08/21 20:25 11/08/21 20:27 Pulse Rate 95 H 97 H Respiratory Rate 16 16 Blood Pressure 123/69 Pulse Oximetry 96 96 11/08/21 20:27 11/08/21 20:30 11/08/21 20:30 Pulse Rate 96 H 96 H Respiratory Rate 17 20 Blood Pressure 127/68 Pulse Oximetry 96 96 11/08/21 20:33 11/08/21 20:33 11/08/21 20:35 Pulse Rate 96 H 96 H Respiratory Rate 16 17 Blood Pressure 133/62 Pulse Oximetry 97 97 11/08/21 20:36 11/08/21 20:36 11/08/21 20:38 Pulse Rate 97 H 97 H Respiratory Rate 18 17 Blood Pressure 120/63 Pulse Oximetry 96 98 11/08/21 20:39 11/08/21 20:55 11/08/21 20:55 Pulse Rate 100 H Respiratory Rate 22 Blood Pressure 132/87 131/63 Pulse Oximetry 99 11/08/21 21:00 11/08/21 21:00 11/08/21 21:05 Pulse Rate 103 H Respiratory Rate 23 Blood Pressure 137/79 112/57 L Pulse Oximetry 99 11/08/21 21:05 11/08/21 21:10 11/08/21 21:10 Pulse Rate 95 H 95 H Respiratory Rate 14 15 Blood Pressure 111/59 L Pulse Oximetry 97 97 11/08/21 21:15 11/08/21 21:15 11/08/21 21:20 Pulse Rate 94 H Respiratory Rate 14 Blood Pressure 116/56 L 120/58 L Pulse Oximetry 98 11/08/21 21:20 11/08/21 21:25 11/08/21 21:25 Pulse Rate 94 H 93 H Respiratory Rate 15 15 Blood Pressure 113/58 L Pulse Oximetry 98 98 11/08/21 21:30 11/08/21 21:30 11/08/21 21:35 Pulse Rate 94 H Respiratory Rate 15 Blood Pressure 118/57 L 116/85 Pulse Oximetry 98 11/08/21 21:35 11/08/21 21:40 11/08/21 21:40 Pulse Rate 95 H 98 H Respiratory Rate 17 16 Blood Pressure 122/79 Pulse Oximetry 98 100 11/08/21 21:45 11/08/21 21:45 11/08/21 21:50 Pulse Rate 93 H Respiratory Rate 16 Blood Pressure 116/72 110/66 Pulse Oximetry 100 11/08/21 21:50 11/08/21 21:55 11/08/21 21:55 Pulse Rate 92 H 91 H Respiratory Rate 15 15 Blood Pressure 109/66 Pulse Oximetry 100 100 11/08/21 22:00 11/08/21 22:00 11/08/21 22:05 Pulse Rate 91 H Respiratory Rate 15 Blood Pressure 107/64 112/62 Pulse Oximetry 100 11/08/21 22:05 11/08/21 22:10 11/08/21 22:10 Pulse Rate 91 H 90 Respiratory Rate 15 15 Blood Pressure 114/62 Pulse Oximetry 100 100 11/08/21 22:11 11/08/21 22:11 11/08/21 22:15 Pulse Rate 90 Respiratory Rate 15 Blood Pressure 113/62 112/61 Pulse Oximetry 100 11/08/21 22:15 11/08/21 22:20 11/08/21 22:25 Pulse Rate 89 88 89 Respiratory Rate 14 14 15 Blood Pressure Pulse Oximetry 100 100 100 11/08/21 22:30 11/08/21 22:30 11/08/21 22:35 Pulse Rate 90 90 Respiratory Rate 15 15 Blood Pressure 114/59 L Pulse Oximetry 100 100 11/08/21 22:40 11/08/21 22:45 11/08/21 22:45 Pulse Rate 92 H 93 H Respiratory Rate 15 15 Blood Pressure 115/60 Pulse Oximetry 100 100 11/08/21 22:50 11/08/21 22:55 11/08/21 23:00 Pulse Rate 92 H 92 H Respiratory Rate 16 15 Blood Pressure 112/59 L Pulse Oximetry 100 100 11/08/21 23:00 11/08/21 23:05 11/08/21 23:10 Pulse Rate 92 H 92 H 92 H Respiratory Rate 15 15 16 Blood Pressure Pulse Oximetry 100 100 100 11/08/21 23:15 11/08/21 23:15 11/08/21 23:16 Pulse Rate 92 H 92 H Respiratory Rate 16 16 Blood Pressure 109/65 Pulse Oximetry 100 11/08/21 23:16 11/08/21 23:20 11/08/21 23:25 Pulse Rate 92 H 93 H 92 H Respiratory Rate 16 17 23 Blood Pressure Pulse Oximetry 100 100 100 11/08/21 23:30 11/08/21 23:31 11/08/21 23:31 Pulse Rate 91 H 91 H Respiratory Rate 14 16 Blood Pressure 112/61 Pulse Oximetry 100 100 11/08/21 23:35 11/08/21 23:40 Pulse Rate 90 92 H Respiratory Rate 14 18 Blood Pressure Pulse Oximetry 100 100 <Tomasz Gutierrez MD - Last Filed: 11/09/21 03:04> Course Course Narrative: No new issues during course of stay Orders Ordered: Discontinued Medications Etomidate (Etomidate 2 Mg/Ml 10 Ml Vial) 10 mg IV NOW ONE Stop: 11/08/21 18:36 Last Admin: 11/08/21 18:38 Dose: 10 mg Documented By: DEEPAK Fentanyl (Fentanyl 100 Mcg/2 Ml Inj) 50 mcg IV Q20MIN PRN PRN Reason: Pain, Severe (7-10) Last Admin: 11/08/21 23:21 Dose: 50 mcg Documented By: Admin: 11/08/21 21:03 Dose: 50 mcg Documented By: Admin: 11/08/21 20:15 Dose: 50 mcg Documented By: DEEPAK Sodium Chloride (Normal Saline 0.9%) 1,000 mls @ 150 mls/hr IV CONT NATE Last Infusion: 11/09/21 00:04 Dose: 0 mls/hr Documented By: Admin: 11/08/21 22:31 Dose: 150 mls/hr Documented By: Infusion: 11/08/21 22:31 Dose: 150 mls/hr Documented By: Admin: 11/08/21 18:07 Dose: 150 mls/hr Documented By: DEEPAK Levetiracetam 1,000 mg/ Sodium (Chloride) 110 mls @ 440 mls/hr IV NOW ONE Stop: 11/08/21 18:07 Last Infusion: 11/08/21 18:30 Dose: 0 mls/hr Documented By: Admin: 11/08/21 18:15 Dose: 440 mls/hr Documented By: DEEPAK Propofol (Propofol) 1,000 mg in 100 mls @ 2.354 mls/hr IV TITRATE NATE; Protocol Last Titration: 11/09/21 00:05 Dose: 0 mcg/kg/min, 0 mls/hr Documented By: Titration: 11/08/21 22:04 Dose: 55 mcg/kg/min, 25.895 mls/hr Documented By: Admin: 11/08/21 21:18 Dose: 60 mcg/kg/min, 28.25 mls/hr Documented By: Titration: 11/08/21 21:18 Dose: 60 mcg/kg/min, 28.25 mls/hr Documented By: Titration: 11/08/21 21:03 Dose: 60 mcg/kg/min, 28.25 mls/hr Documented By: Titration: 11/08/21 20:42 Dose: 55 mcg/kg/min, 25.895 mls/hr Documented By: Titration: 11/08/21 20:12 Dose: 50 mcg/kg/min, 23.541 mls/hr Documented By: Titration: 11/08/21 20:05 Dose: 45 mcg/kg/min, 21.187 mls/hr Documented By: Titration: 11/08/21 19:56 Dose: 40 mcg/kg/min, 18.833 mls/hr Documented By: Titration: 11/08/21 19:49 Dose: 35 mcg/kg/min, 16.479 mls/hr Documented By: Titration: 11/08/21 19:28 Dose: 30 mcg/kg/min, 14.125 mls/hr Documented By: Titration: 11/08/21 18:54 Dose: 19.96 mcg/kg/min, 9.4 mls/hr Documented By: Admin: 11/08/21 18:46 Dose: 5 mcg/kg/min, 2.354 mls/hr Documented By: DEEPAK Lorazepam 20 mg/ Sodium (Chloride) 100 mls @ 3.924 mls/hr IV TITRATE NATE; Protocol Midazolam HCl 50 mg/ Dextrose 250 mls @ 25 mls/hr IV TITRATE NATE; Protocol Last Titration: 11/09/21 00:06 Dose: 0 mg/hr, 0 mls/hr Documented By: Titration: 11/08/21 20:12 Dose: 8 mg/hr, 40 mls/hr Documented By: Titration: 11/08/21 20:00 Dose: 7 mg/hr, 35 mls/hr Documented By: Titration: 11/08/21 19:40 Dose: 6 mg/hr, 30 mls/hr Documented By: Titration: 11/08/21 19:21 Dose: 5 mg/hr, 25 mls/hr Documented By: Titration: 11/08/21 19:15 Dose: 2 mg/hr, 10 mls/hr Documented By: Admin: 11/08/21 19:11 Dose: 5 mg/hr, 25 mls/hr Documented By: DEEPAK Levetiracetam 2,000 mg/ Sodium (Chloride) 120 mls @ 480 mls/hr IV NOW ONE Stop: 11/08/21 21:12 Last Infusion: 11/08/21 22:29 Dose: 0 mls/hr Documented By: Admin: 11/08/21 22:03 Dose: 480 mls/hr Documented By: MADY Levetiracetam 1,000 mg/ Sodium (Chloride) 110 mls @ 440 mls/hr IV NOW ONE Stop: 11/08/21 22:14 Last Admin: 11/08/21 22:06 Dose: Not Given Documented By: MADY Levetiracetam (Levetiracetam 500 Mg/5 Ml Vial) 1,000 mg IV NOW ONE Stop: 11/08/21 22:01 Last Admin: 11/08/21 22:05 Dose: Not Given Documented By: MADY Midazolam HCl (Midazolam 2 Mg/2 Ml Vial) 1 mg IV NOW ONE Stop: 11/08/21 18:05 Last Admin: 11/08/21 18:07 Dose: 1 mg Documented By: DEEPAK Midazolam HCl (Midazolam 2 Mg/2 Ml Vial) 2 mg IV Q15MIN PRN PRN Reason: agitation /seizure Morphine Sulfate (Morphine 4 Mg/Ml Inj) 4 mg IV NOW ONE Stop: 11/08/21 18:16 Last Admin: 11/08/21 18:23 Dose: 2 mg Documented By: DEEPAK Succinylcholine Chloride (Succinylcholine 200 Mg/10 Ml Vial) 150 mg IV NOW ONE Stop: 11/08/21 18:36 Last Admin: 11/08/21 18:38 Dose: 150 mg Documented By: DEEPAK Consultations Consultation #1: Spoke with [facility] neurology Dr. Mcallister, this is atypical movements not 100% that it is focal seizures however needs to be transferred to neurology facility that has EEG capacity. Would add lactate total CK and procalcitonin to workup for seizure activity. She recommends total 3 g of Keppra. Not 1 g. If no effect then increased sedation medication for effect. Time: 21:13 Consultation #2: Spoke with [facility], Dr. Garcia, he will accept patient to ICU Time: 21:25 Vital Signs Vital signs: Vital Signs - 8 hr 11/08/21 19:06 11/08/21 19:06 11/08/21 19:09 Pulse Rate 100 H Respiratory Rate 19 Blood Pressure 140/69 127/58 L Pulse Oximetry 100 11/08/21 19:09 11/08/21 19:10 11/08/21 19:12 Pulse Rate 100 H 99 H Respiratory Rate 21 20 Blood Pressure 136/65 Pulse Oximetry 100 100 11/08/21 19:12 11/08/21 19:15 11/08/21 19:15 Pulse Rate 98 H 97 H Respiratory Rate 18 20 Blood Pressure 137/70 Pulse Oximetry 100 100 11/08/21 19:18 11/08/21 19:18 11/08/21 19:20 Pulse Rate 96 H 97 H Respiratory Rate 22 Blood Pressure 133/70 Pulse Oximetry 100 100 11/08/21 19:21 11/08/21 19:21 11/08/21 19:24 Pulse Rate 96 H Respiratory Rate 22 Blood Pressure 144/72 H 141/68 H Pulse Oximetry 100 11/08/21 19:24 11/08/21 19:25 11/08/21 19:27 Pulse Rate 95 H 94 H Respiratory Rate 21 21 Blood Pressure 144/69 H Pulse Oximetry 100 100 11/08/21 19:27 11/08/21 19:30 11/08/21 19:30 Pulse Rate 92 H 93 H Respiratory Rate 19 20 Blood Pressure 146/71 H Pulse Oximetry 100 100 11/08/21 19:33 11/08/21 19:33 11/08/21 19:35 Pulse Rate 93 H 94 H Respiratory Rate 19 19 Blood Pressure 138/71 Pulse Oximetry 100 100 11/08/21 19:36 11/08/21 19:36 11/08/21 19:39 Pulse Rate 95 H Respiratory Rate 23 Blood Pressure 142/77 H 143/87 H Pulse Oximetry 100 11/08/21 19:39 11/08/21 19:40 11/08/21 19:42 Pulse Rate 100 H 97 H Respiratory Rate 24 23 Blood Pressure 136/80 Pulse Oximetry 100 100 11/08/21 19:42 11/08/21 19:45 11/08/21 19:45 Pulse Rate 97 H 96 H Respiratory Rate 22 21 Blood Pressure 135/79 Pulse Oximetry 99 98 11/08/21 19:48 11/08/21 19:48 11/08/21 19:50 Pulse Rate 96 H 96 H Respiratory Rate 21 19 Blood Pressure 133/77 Pulse Oximetry 98 98 11/08/21 19:51 11/08/21 19:51 11/08/21 19:54 Pulse Rate 95 H Respiratory Rate 19 Blood Pressure 132/77 134/75 Pulse Oximetry 98 11/08/21 19:54 11/08/21 19:55 11/08/21 19:57 Pulse Rate 96 H 96 H Respiratory Rate 19 19 Blood Pressure 137/66 Pulse Oximetry 98 98 11/08/21 19:57 11/08/21 20:00 11/08/21 20:00 Pulse Rate 96 H 98 H Respiratory Rate 21 25 H Blood Pressure 138/67 Pulse Oximetry 98 98 11/08/21 20:03 11/08/21 20:03 11/08/21 20:05 Pulse Rate 97 H 98 H Respiratory Rate 23 24 Blood Pressure 133/65 Pulse Oximetry 98 96 11/08/21 20:06 11/08/21 20:06 11/08/21 20:09 Pulse Rate 96 H 97 H Respiratory Rate 21 25 H Blood Pressure 132/73 Pulse Oximetry 97 98 11/08/21 20:09 11/08/21 20:10 11/08/21 20:12 Pulse Rate 95 H 97 H Respiratory Rate 19 21 Blood Pressure 129/74 Pulse Oximetry 98 98 11/08/21 20:12 11/08/21 20:15 11/08/21 20:15 Pulse Rate 98 H Respiratory Rate Blood Pressure 139/78 137/74 Pulse Oximetry 99 11/08/21 20:18 11/08/21 20:18 11/08/21 20:20 Pulse Rate 99 H 99 H Respiratory Rate Blood Pressure 135/74 Pulse Oximetry 98 99 11/08/21 20:21 11/08/21 20:21 11/08/21 20:24 Pulse Rate 95 H Respiratory Rate 18 Blood Pressure 124/69 120/68 Pulse Oximetry 96 11/08/21 20:24 11/08/21 20:25 11/08/21 20:27 Pulse Rate 95 H 97 H Respiratory Rate 16 16 Blood Pressure 123/69 Pulse Oximetry 96 96 11/08/21 20:27 11/08/21 20:30 11/08/21 20:30 Pulse Rate 96 H 96 H Respiratory Rate 17 20 Blood Pressure 127/68 Pulse Oximetry 96 96 11/08/21 20:33 11/08/21 20:33 11/08/21 20:35 Pulse Rate 96 H 96 H Respiratory Rate 16 17 Blood Pressure 133/62 Pulse Oximetry 97 97 11/08/21 20:36 11/08/21 20:36 11/08/21 20:38 Pulse Rate 97 H 97 H Respiratory Rate 18 17 Blood Pressure 120/63 Pulse Oximetry 96 98 11/08/21 20:39 11/08/21 20:55 11/08/21 20:55 Pulse Rate 100 H Respiratory Rate 22 Blood Pressure 132/87 131/63 Pulse Oximetry 99 11/08/21 21:00 11/08/21 21:00 11/08/21 21:05 Pulse Rate 103 H Respiratory Rate 23 Blood Pressure 137/79 112/57 L Pulse Oximetry 99 11/08/21 21:05 11/08/21 21:10 11/08/21 21:10 Pulse Rate 95 H 95 H Respiratory Rate 14 15 Blood Pressure 111/59 L Pulse Oximetry 97 97 11/08/21 21:15 11/08/21 21:15 11/08/21 21:20 Pulse Rate 94 H Respiratory Rate 14 Blood Pressure 116/56 L 120/58 L Pulse Oximetry 98 11/08/21 21:20 11/08/21 21:25 11/08/21 21:25 Pulse Rate 94 H 93 H Respiratory Rate 15 15 Blood Pressure 113/58 L Pulse Oximetry 98 98 11/08/21 21:30 11/08/21 21:30 11/08/21 21:35 Pulse Rate 94 H Respiratory Rate 15 Blood Pressure 118/57 L 116/85 Pulse Oximetry 98 11/08/21 21:35 11/08/21 21:40 11/08/21 21:40 Pulse Rate 95 H 98 H Respiratory Rate 17 16 Blood Pressure 122/79 Pulse Oximetry 98 100 11/08/21 21:45 11/08/21 21:45 11/08/21 21:50 Pulse Rate 93 H Respiratory Rate 16 Blood Pressure 116/72 110/66 Pulse Oximetry 100 11/08/21 21:50 11/08/21 21:55 11/08/21 21:55 Pulse Rate 92 H 91 H Respiratory Rate 15 15 Blood Pressure 109/66 Pulse Oximetry 100 100 11/08/21 22:00 11/08/21 22:00 11/08/21 22:05 Pulse Rate 91 H Respiratory Rate 15 Blood Pressure 107/64 112/62 Pulse Oximetry 100 11/08/21 22:05 11/08/21 22:10 11/08/21 22:10 Pulse Rate 91 H 90 Respiratory Rate 15 15 Blood Pressure 114/62 Pulse Oximetry 100 100 11/08/21 22:11 11/08/21 22:11 11/08/21 22:15 Pulse Rate 90 Respiratory Rate 15 Blood Pressure 113/62 112/61 Pulse Oximetry 100 11/08/21 22:15 11/08/21 22:20 11/08/21 22:25 Pulse Rate 89 88 89 Respiratory Rate 14 14 15 Blood Pressure Pulse Oximetry 100 100 100 11/08/21 22:30 11/08/21 22:30 11/08/21 22:35 Pulse Rate 90 90 Respiratory Rate 15 15 Blood Pressure 114/59 L Pulse Oximetry 100 100 11/08/21 22:40 11/08/21 22:45 11/08/21 22:45 Pulse Rate 92 H 93 H Respiratory Rate 15 15 Blood Pressure 115/60 Pulse Oximetry 100 100 11/08/21 22:50 11/08/21 22:55 11/08/21 23:00 Pulse Rate 92 H 92 H Respiratory Rate 16 15 Blood Pressure 112/59 L Pulse Oximetry 100 100 11/08/21 23:00 11/08/21 23:05 11/08/21 23:10 Pulse Rate 92 H 92 H 92 H Respiratory Rate 15 15 16 Blood Pressure Pulse Oximetry 100 100 100 11/08/21 23:15 11/08/21 23:15 11/08/21 23:16 Pulse Rate 92 H 92 H Respiratory Rate 16 16 Blood Pressure 109/65 Pulse Oximetry 100 11/08/21 23:16 11/08/21 23:20 11/08/21 23:25 Pulse Rate 92 H 93 H 92 H Respiratory Rate 16 17 23 Blood Pressure Pulse Oximetry 100 100 100 11/08/21 23:30 11/08/21 23:31 11/08/21 23:31 Pulse Rate 91 H 91 H Respiratory Rate 14 16 Blood Pressure 112/61 Pulse Oximetry 100 100 11/08/21 23:35 11/08/21 23:40 Pulse Rate 90 92 H Respiratory Rate 14 18 Blood Pressure Pulse Oximetry 100 100 MDM - Altered Mental Status <Tere Duke, - Last Filed: 11/14/21 05:02> Lab Data Result diagrams: 11/08/21 17:40 11/08/21 17:40 Labs: Lab Results 11/08/21 11/08/21 11/08/21 Range/Units 17:40 17:40 17:40 WBC 6.1 (4.5-11.0) X10^3/uL RBC 4.29 (4.0-5.2) X10^6/uL Hgb 12.5 (12.0-16.0) g/dL Hct 36.1 (36-46) % MCV 84.2 (80-100) fL MCH 29.0 (26-34) PG MCHC 34.5 (30-36) % RDW 13.7 (11.6-14.8) % Plt Count 240 (150-400) X10^3/uL Neut % (Auto) 57.7 (50-75) % Lymph % (Auto) 31.4 (25-40) % [place] % (Auto) 9.2 (3-14) % Eos % (Auto) 0.9 L (2-4) % Baso % (Auto) 0.8 (0-2) % Neut # (Auto) 3500 (6474-8719) /uL Lymph # (Auto) 1900 (3457-7531) /uL [place] # (Auto) 600 (0-900) /uL Eos # (Auto) 100 (0-450) /uL Baso # (Auto) 0 (0-100) /uL PT 10.0 L (10.1-12.7) SECONDS INR 0.9 (0.9-1.3) APTT 31 (26.4-36.2) SECONDS ABG pH (7.35-7.45) ABG pCO2 (35-45) mmHg ABG pO2 (80-100) mmHg ABG HCO3 (22-26) mmol/L ABG Total CO2 (21-31) mmol/L ABG O2 Saturation (95-100) % ABG Base Excess (-2-2) mmol/L FiO2 Sodium 136 L (137-145) mmol/L Potassium 4.7 (3.4-5.1) mmol/L Chloride 106 (98-107) mmol/L Carbon Dioxide 24 (22-32) mmol/L BUN 15 (7-17) mg/dL Creatinine 0.59 (0.52-1.04) mg/dL Estimated GFR > 60 (>60) mL/min BUN/Creatinine Ratio 25.4 H (6-22) Glucose 92 (70-100) mg/dL Lactate (0.7-2.1) mmol/L Calcium 9.1 (8.4-10.2) mg/dL Total Bilirubin 0.6 (0.2-1.3) mg/dL AST 60 H (14-36) IU/L ALT 48 H (<35) IU/L Alkaline Phosphatase 39 (38-126) U/L Total Creatine Kinase 143 H (30-135) U/L CK-MB (CK-2) 0.38 (<2.37) ng/mL CK-MB (CK-2) Rel Index 0.3 L (1.5-5.0) % Troponin I 0.012 (0.01-0.034) ng/mL Total Protein 7.9 (6.3-8.2) g/dL Albumin 4.8 (3.5-5.0) g/dL Globulin 3.1 (1.7-4.1) g/dL Albumin/Globulin Ratio 1.5 (1.0-2.8) Procalcitonin (<0.5) ng/mL Serum , Qual (Negative) Urine Color Urine Appearance Urine pH (4.5-8.0) Ur Specific [place] (1.000-1.035) Urine Protein (Negative) Urine Glucose (UA) (Negative) g/dL Urine Ketones (NEGATIVE) Urine Occult Blood (Negative) Urine Nitrate (Negative) Urine Bilirubin (NEGATIVE) Urine Urobilinogen (0.2) E.U./dL Ur Leukocyte Esterase (NEGATIVE) Urine RBC (0-5/HPF) Urine WBC (0-5/HPF) Ur Squamous Epith Cells (0-5/HPF) Urine Bacteria (None) Ur Culture Indicated? U Opiates 300ng/mL cut (Negative) Ur Oxycodone Screen (Negative) Urine Methadone Screen (Negative) Ur Barbiturates Screen (Negative) U Tricyclic Antidepress (Negative) Ur Phencyclidine Scrn (Negative) Ur Amphetamines Screen (Negative) U Methamphetamines Scrn (Negative) Ur MDMA Scrn (Ecstasy) (Negative) U Benzodiazepines Scrn (Negative) Urine Cocaine Screen (Negative) U Marijuana (THC) Screen (Negative) Ethyl Alcohol ( - 10) mg/dL SARS-CoV-2 (PCR) (Negative) 11/08/21 11/08/21 11/08/21 Range/Units 17:40 17:40 17:40 WBC (4.5-11.0) X10^3/uL RBC (4.0-5.2) X10^6/uL Hgb (12.0-16.0) g/dL Hct (36-46) % MCV (80-100) fL MCH (26-34) PG MCHC (30-36) % RDW (11.6-14.8) % Plt Count (150-400) X10^3/uL Neut % (Auto) (50-75) % Lymph % (Auto) (25-40) % [place] % (Auto) (3-14) % Eos % (Auto) (2-4) % Baso % (Auto) (0-2) % Neut # (Auto) (0583-0906) /uL Lymph # (Auto) (6532-0341) /uL [place] # (Auto) (0-900) /uL Eos # (Auto) (0-450) /uL Baso # (Auto) (0-100) /uL PT (10.1-12.7) SECONDS INR (0.9-1.3) APTT (26.4-36.2) SECONDS ABG pH (7.35-7.45) ABG pCO2 (35-45) mmHg ABG pO2 (80-100) mmHg ABG HCO3 (22-26) mmol/L ABG Total CO2 (21-31) mmol/L ABG O2 Saturation (95-100) % ABG Base Excess (-2-2) mmol/L FiO2 Sodium (137-145) mmol/L Potassium (3.4-5.1) mmol/L Chloride (98-107) mmol/L Carbon Dioxide (22-32) mmol/L BUN (7-17) mg/dL Creatinine (0.52-1.04) mg/dL Estimated GFR (>60) mL/min BUN/Creatinine Ratio (6-22) Glucose (70-100) mg/dL Lactate 1.1 (0.7-2.1) mmol/L Calcium (8.4-10.2) mg/dL Total Bilirubin (0.2-1.3) mg/dL AST (14-36) IU/L ALT (<35) IU/L Alkaline Phosphatase (38-126) U/L Total Creatine Kinase (30-135) U/L CK-MB (CK-2) (<2.37) ng/mL CK-MB (CK-2) Rel Index (1.5-5.0) % Troponin I (0.01-0.034) ng/mL Total Protein (6.3-8.2) g/dL Albumin (3.5-5.0) g/dL Globulin (1.7-4.1) g/dL Albumin/Globulin Ratio (1.0-2.8) Procalcitonin (<0.5) ng/mL Serum , Qual Negative (Negative) Urine Color Urine Appearance Urine pH (4.5-8.0) Ur Specific [place] (1.000-1.035) Urine Protein (Negative) Urine Glucose (UA) (Negative) g/dL Urine Ketones (NEGATIVE) Urine Occult Blood (Negative) Urine Nitrate (Negative) Urine Bilirubin (NEGATIVE) Urine Urobilinogen (0.2) E.U./dL Ur Leukocyte Esterase (NEGATIVE) Urine RBC (0-5/HPF) Urine WBC (0-5/HPF) Ur Squamous Epith Cells (0-5/HPF) Urine Bacteria (None) Ur Culture Indicated? U Opiates 300ng/mL cut (Negative) Ur Oxycodone Screen (Negative) Urine Methadone Screen (Negative) Ur Barbiturates Screen (Negative) U Tricyclic Antidepress (Negative) Ur Phencyclidine Scrn (Negative) Ur Amphetamines Screen (Negative) U Methamphetamines Scrn (Negative) Ur MDMA Scrn (Ecstasy) (Negative) U Benzodiazepines Scrn (Negative) Urine Cocaine Screen (Negative) U Marijuana (THC) Screen (Negative) Ethyl Alcohol < 10 ( - 10) mg/dL SARS-CoV-2 (PCR) (Negative) 11/08/21 11/08/21 11/08/21 Range/Units 17:58 18:03 19:28 WBC (4.5-11.0) X10^3/uL RBC (4.0-5.2) X10^6/uL Hgb (12.0-16.0) g/dL Hct (36-46) % MCV (80-100) fL MCH (26-34) PG MCHC (30-36) % RDW (11.6-14.8) % Plt Count (150-400) X10^3/uL Neut % (Auto) (50-75) % Lymph % (Auto) (25-40) % [place] % (Auto) (3-14) % Eos % (Auto) (2-4) % Baso % (Auto) (0-2) % Neut # (Auto) (3497-5707) /uL Lymph # (Auto) (0281-3256) /uL [place] # (Auto) (0-900) /uL Eos # (Auto) (0-450) /uL Baso # (Auto) (0-100) /uL PT (10.1-12.7) SECONDS INR (0.9-1.3) APTT (26.4-36.2) SECONDS ABG pH 7.38 7.34 L (7.35-7.45) ABG pCO2 40.7 48.9 H (35-45) mmHg ABG pO2 42 L* 442 H* (80-100) mmHg ABG HCO3 25 27 H (22-26) mmol/L ABG Total CO2 26 28 (21-31) mmol/L ABG O2 Saturation 77 L* 100 (95-100) % ABG Base Excess -1.0 1.0 (-2-2) mmol/L FiO2 32 100 Sodium (137-145) mmol/L Potassium (3.4-5.1) mmol/L Chloride (98-107) mmol/L Carbon Dioxide (22-32) mmol/L BUN (7-17) mg/dL Creatinine (0.52-1.04) mg/dL Estimated GFR (>60) mL/min BUN/Creatinine Ratio (6-22) Glucose (70-100) mg/dL Lactate (0.7-2.1) mmol/L Calcium (8.4-10.2) mg/dL Total Bilirubin (0.2-1.3) mg/dL AST (14-36) IU/L ALT (<35) IU/L Alkaline Phosphatase (38-126) U/L Total Creatine Kinase (30-135) U/L CK-MB (CK-2) (<2.37) ng/mL CK-MB (CK-2) Rel Index (1.5-5.0) % Troponin I (0.01-0.034) ng/mL Total Protein (6.3-8.2) g/dL Albumin (3.5-5.0) g/dL Globulin (1.7-4.1) g/dL Albumin/Globulin Ratio (1.0-2.8) Procalcitonin (<0.5) ng/mL Serum , Qual (Negative) Urine Color Urine Appearance Urine pH (4.5-8.0) Ur Specific [place] (1.000-1.035) Urine Protein (Negative) Urine Glucose (UA) (Negative) g/dL Urine Ketones (NEGATIVE) Urine Occult Blood (Negative) Urine Nitrate (Negative) Urine Bilirubin (NEGATIVE) Urine Urobilinogen (0.2) E.U./dL Ur Leukocyte Esterase (NEGATIVE) Urine RBC (0-5/HPF) Urine WBC (0-5/HPF) Ur Squamous Epith Cells (0-5/HPF) Urine Bacteria (None) Ur Culture Indicated? U Opiates 300ng/mL cut (Negative) Ur Oxycodone Screen (Negative) Urine Methadone Screen (Negative) Ur Barbiturates Screen (Negative) U Tricyclic Antidepress (Negative) Ur Phencyclidine Scrn (Negative) Ur Amphetamines Screen (Negative) U Methamphetamines Scrn (Negative) Ur MDMA Scrn (Ecstasy) (Negative) U Benzodiazepines Scrn (Negative) Urine Cocaine Screen (Negative) U Marijuana (THC) Screen (Negative) Ethyl Alcohol ( - 10) mg/dL SARS-CoV-2 (PCR) Negative (Negative) 11/08/21 11/08/21 11/08/21 Range/Units 20:47 20:47 23:10 WBC (4.5-11.0) X10^3/uL RBC (4.0-5.2) X10^6/uL Hgb (12.0-16.0) g/dL Hct (36-46) % MCV (80-100) fL MCH (26-34) PG MCHC (30-36) % RDW (11.6-14.8) % Plt Count (150-400) X10^3/uL Neut % (Auto) (50-75) % Lymph % (Auto) (25-40) % [place] % (Auto) (3-14) % Eos % (Auto) (2-4) % Baso % (Auto) (0-2) % Neut # (Auto) (4331-0366) /uL Lymph # (Auto) (2638-6207) /uL [place] # (Auto) (0-900) /uL Eos # (Auto) (0-450) /uL Baso # (Auto) (0-100) /uL PT (10.1-12.7) SECONDS INR (0.9-1.3) APTT (26.4-36.2) SECONDS ABG pH (7.35-7.45) ABG pCO2 (35-45) mmHg ABG pO2 (80-100) mmHg ABG HCO3 (22-26) mmol/L ABG Total CO2 (21-31) mmol/L ABG O2 Saturation (95-100) % ABG Base Excess (-2-2) mmol/L FiO2 Sodium (137-145) mmol/L Potassium (3.4-5.1) mmol/L Chloride (98-107) mmol/L Carbon Dioxide (22-32) mmol/L BUN (7-17) mg/dL Creatinine (0.52-1.04) mg/dL Estimated GFR (>60) mL/min BUN/Creatinine Ratio (6-22) Glucose (70-100) mg/dL Lactate (0.7-2.1) mmol/L Calcium (8.4-10.2) mg/dL Total Bilirubin (0.2-1.3) mg/dL AST (14-36) IU/L ALT (<35) IU/L Alkaline Phosphatase (38-126) U/L Total Creatine Kinase 131 (30-135) U/L CK-MB (CK-2) (<2.37) ng/mL CK-MB (CK-2) Rel Index (1.5-5.0) % Troponin I (0.01-0.034) ng/mL Total Protein (6.3-8.2) g/dL Albumin (3.5-5.0) g/dL Globulin (1.7-4.1) g/dL Albumin/Globulin Ratio (1.0-2.8) Procalcitonin < 0.03 (<0.5) ng/mL Serum , Qual (Negative) Urine Color Yellow Urine Appearance Clear Urine pH 5.0 (4.5-8.0) Ur Specific [place] 1.015 (1.000-1.035) Urine Protein Negative (Negative) Urine Glucose (UA) Negative (Negative) g/dL Urine Ketones Negative (NEGATIVE) Urine Occult Blood Negative (Negative) Urine Nitrate Negative (Negative) Urine Bilirubin Negative (NEGATIVE) Urine Urobilinogen 0.2 (0.2) E.U./dL Ur Leukocyte Esterase Negative (NEGATIVE) Urine RBC 0-1/hpf (0-5/HPF) Urine WBC None seen (0-5/HPF) Ur Squamous Epith Cells 0-1 /hpf (0-5/HPF) Urine Bacteria None seen (None) Ur Culture Indicated? Cult not indicated U Opiates 300ng/mL cut Positive (Negative) Ur Oxycodone Screen Negative (Negative) Urine Methadone Screen Negative (Negative) Ur Barbiturates Screen Negative (Negative) U Tricyclic Antidepress Negative (Negative) Ur Phencyclidine Scrn Negative (Negative) Ur Amphetamines Screen Negative (Negative) U Methamphetamines Scrn Negative (Negative) Ur MDMA Scrn (Ecstasy) Negative (Negative) U Benzodiazepines Scrn Negative (Negative) Urine Cocaine Screen Negative (Negative) U Marijuana (THC) Screen Negative (Negative) Ethyl Alcohol ( - 10) mg/dL SARS-CoV-2 (PCR) (Negative) Point of Care Testing Glucose POC [address] scan - head: Radiologist's Impression: neg CT per Dr. Al. Reviewed prelim CTA appears bleed which would be atypical. Close Chest X-Ray (Signed) Ara Al - 11/08/21 Head/Neck CTA (Signed) Ara Al - 11/08/[address] (Signed) Ara Al - 11/08/21 Abdomen/Pelvis CT (Signed) Issac Brooks - 08/30/21 Knee X-Ray (Signed) Gordo Broussard - 08/29/21 Hip X-Ray (Signed) Gordo Broussard - 08/29/21 Lumbar Spine X-Ray (Signed) Bakari Mendiola - 03/27/18 Pelvis Ultrasound (Signed) Morris Mcallister - 01/21/18 Launch?[address] [address] [address] Scan Report Signed Patient: Blas Marte MR#: [id number] : 1985 Acct:[id number] Age/Sex: 36 / F Date of Service: 11/08/21 Loc: ED Accession Number: [id number] ?? Procedure: CT Stroke Ordering Provider: Tere Duke D.O. PROCEDURE:? CT STROKE ? INDICATIONS:? seizure, weakness/twitching left side ? TECHNIQUE:? Noncontrast 4.5 mm thick angled axial sections acquired from the foramen magnum to the vertex, with coronal reformats.? For radiation dose reduction, the following was used:? automated exposure control, adjustment of mA and/or kV according to patient size.? ? COMPARISON:? None. ? FINDINGS:? Image quality:? Excellent.? ? CSF spaces:? Basal cisterns are patent.? No extra-axial fluid collections.? The ventricles are symmetric in size and shape.? ? Brain:? No intracranial bleeds or masses.? There is cerebral volume loss for age, with resultant ventricular and sulcal prominence.? There are periventricular and deep white matter chronic small vessel ischemic changes.? There is intracranial internal carotid artery atherosclerosis.? ? Skull and face:? Calvarium and visualized facial bones appear intact, without suspicious lesions.? ? Sinuses:? Visualized sinuses and mastoids are clear.? ? IMPRESSION:? No acute intracranial disease process. ? Findings discussed with Dr. Duke on November 08, 2021 at 4:54 p.m.. ? This study fulfills neurological imaging criteria for inclusion or exclusion of acute stroke therapies based on available published neurological guidelines.? ? ? Dictated by: Ara Al MD, PhD on 11/08/2021 at 16:53 ? ? Approved by: Ara Al MD, PhD on 11/08/2021 at 16:56? CTA - brain/neck: Radiologist's Impression: [place] [address] CT Scan Report Signed Patient: Blas Marte MR#: [id number] : 1985 Acct:[id number] Age/Sex: 36 / F Date of Service: 11/08/21 Loc: ED Accession Number: [id number] ?? Procedure: CT angio head and neck Ordering Provider: Tere Duke D.O. PROCEDURE:? CT ANGIO HEAD AND NECK ? INDICATIONS:? left weakness, shaking, twitching ? TECHNIQUE:? After the administration of intravenous contrast, 1 mm thick sections acquired from the aortic arch through the [place].? Post-contrast 4.5 mm thick sections then re-acquired from the foramen magnum to the vertex.? 3-dimensional klbkted-lpgjcgzqg-cjnwmvzlcc (MIP) and/or volume rendering reformats were acquired of the central intracranial vasculature and neck separately. For radiation dose reduction, the following was used:? automated exposure control, adjustment of mA and/or kV according to patient size.? ? COMPARISON:? [facility], CT, CT STROKE, 11/08/2021, 17:45. ? FINDINGS:? Image quality:? Excellent.? ? BRAIN:? CSF spaces:? Ventricles are normal in size and shape.? Basal cisterns are patent.? No extra-axial fluid collections.? ? Brain:? No midline shift.? No intracranial bleeds or masses.? [place]ur-white matter interface appears intact.? ? Skull and face:? Calvarium and facial bones appear intact, without suspicious l esions.? Orbits appear normal.? ? Sinuses:? Sinuses and mastoids are clear.? ? HEAD CT ANGIOGRAPHY:? Anterior circulation:? Intracranial internal carotid arteries are normal in size and flow.? The flow within the paired anterior cerebral arteries is normal and symmetric.? The flow within the middle cerebral arteries is normal and symmetric.? The anterior communicating artery is seen.? No aneurysms are seen.? ? Posterior circulation:? Visualized portions of the vertebral arteries demonstrate normal caliber, and join to form a normal appearing basilar artery.? Flow within the posterior cerebral arteries is normal and symmetric.? No aneurysms are seen. ? ?Dural sinuses demonstrate normal postcontrast enhancement.? ? NECK CT ANGIOGRAPHY:? Carotid system:? The great vessels demonstrate a conventional anatomy as they arise from the aortic arch.? The origins of the common carotid arteries appear patent.? The common carotid arteries demonstrate normal caliber and courses.? The bifurcation ariella ons are both widely patent.? The internal carotid arteries demonstrate normal calibers and courses.? ? Posterior circulation:? The origins of the vertebral arteries both appear widely patent.? The more superior extracranial portions of both vertebral arteries also demonstrate normal courses and calibers.? They join to form a normal appearing basilar artery.? ? Soft tissues:? Visualized neck soft tissues demonstrate no suspicious abnormalities.? ? Bones:? No suspicious bony lesions.? Visualized cervical spine appears normally aligned.? IMPRESSION:? ? 1. No acute intracranial disease process. ? 2. No large vessel occlusion, vascular stenosis, vascular dissection or aneurysm.? ? Any quantitative measurements of stenosis were performed using NASCET criteria.? ? ? Dictated by: Ara Al MD, PhD on 11/08/2021 at 17:05 ? ? Approved by: Ara Al MD, PhD on 11/08/2021 at 17:15?? Chest x-ray: Radiologist's Impression: Blas Marte??36??F??1985 ? Allergy/Adv: latex Close Chest X-Ray (Signed) Ara Al - 11/08/21 Head/Neck CTA (Signed) Ara Al - 11/08/[address] (Signed) Ara Al - 11/08/21 Abdomen/Pelvis CT (Signed) Issac Brooks - 08/30/21 Knee X-Ray (Signed) BroussardGordo schrader - 08/29/21 Hip X-Ray (Signed) Gordo Broussard - 08/29/21 Lumbar Spine X-Ray (Signed) Bakari Mendiola - 03/27/18 Pelvis Ultrasound (Signed) Morris Mcallister - 01/21/18 [place] [address] XRay Report Signed Patient: Bals Marte MR#: [id number] : 1985 Acct:[id number] Age/Sex: 36 / F Date of Service: 11/08/21 Loc: Accession Number: [id number] ?? Procedure: XR chest 1V Ordering Provider: Tere Duke D.O. PROCEDURE:? XR CHEST 1V ? INDICATIONS:? post-intubation ? TECHNIQUE:? One view of the chest was acquired.? ? COMPARISON:? None. ? FINDINGS:? ? Surgical changes and devices:? ET tube projects 1.7 centimeters superior to the leatha and should be pulled back 2-3 centimeters. ? Lungs and pleura:? Lungs are clear.? No pleural effusions or pneumothorax.? ? Mediastinum:? Mediastinal contours appear normal.? Heart size is normal.? ? Bones and chest wall:? No suspicious bony lesions.? Overlying soft tissues appear unremarkable.? ? IMPRESSION:? ET tube 1.7 centimeters superior to the leatha. ? ? Dictated by: Ara Al MD, PhD on 11/08/2021 at 17:49 ? ? Approved by: Ara Al MD, PhD on 11/08/2021 at 17:50?? ECG Data Attestation: I personally reviewed and interpreted this ECG as follows: Interpretation: Sinus tachycardia rate 113, AR 122 QRS [address] QTC [address] No acute ST changes. MDM Narrative Medical decision making narrative: This is a 36-year-old female with history of alcohol use, reportedly stopped drinking alcohol 3 weeks or more ago. Patient has had prior migraines she had a syncopal episode potentially but slumped to the ground reportedly by her children and had patient like activity of her left side without movement of the left side. Patient was alert when she arrived with inappropriate glucose in the field, alerted as stroke alert although her exam is more of spasmodic tonic- clonic type movement of her left upper extremity and face and spasm of the left leg. Patient does attempt to perform commands. Patient's head CT is negative CT angio was initially concerning for bleed but was felt to be a large vessel by Radiology. Patient's labs do not show any clear cause for her symptomatology, no known history of seizure changes. Patient was having difficulty with breathing and end-tidal CO2 was rising on her capnography this did not correlate clearly with her pulse oximetry so ABG was obtained shows a PaO2 in the 40s but without hypercapnia or metabolic changes despite oxygen therapy. Patient continued to struggle with her breathing so she was electively intubated after discussion with her at bedside and patient. Procedure when smooth, repeat ABG shows her PO2 significantly improved. Patient has some CO2 retention, repeat ABG to be performed in the next hour and adjustments made FiO2 has been turned down. Patient has been on propofol as well as Versed drip with fentanyl pushes she is still not fully sedated. She did have Keppra loaded initially prior to intubation. She received doses of benzodiazepine prior to intubation as well. Patient airway was normal on intubation. Unclear etiology of her changes today, stroke, intracranial bleed, focal seizure, alcohol withdrawal and other causes were considered. Workup is continuing and patient necessitates transfer to a larger facility for neurology evaluation and possibly EEG which we do not have available. Images were pushed to [facility]. Initially we are going to speak with Neurosurgery concern for bleed but this is negative on CTA. Neurology has been paged. Patient signed out to Dr. Gutierrez while awaiting call back from Neurology. There are no beds available currently [facility] so call out have been made to multiple facilities to try to find placement. <Tomasz Gutierrez MD - Last Filed: 11/09/21 03:04> Differential Diagnosis Differential diagnosis: Likely altered mental status, delirium, other (Seizure/stroke) and sepsis Lab Data Labs: Lab Results 11/08/21 11/08/21 11/08/21 Range/Units 17:40 17:40 17:40 WBC 6.1 (4.5-11.0) X10^3/uL RBC 4.29 (4.0-5.2) X10^6/uL Hgb 12.5 (12.0-16.0) g/dL Hct 36.1 (36-46) % MCV 84.2 (80-100) fL MCH 29.0 (26-34) PG MCHC 34.5 (30-36) % RDW 13.7 (11.6-14.8) % Plt Count 240 (150-400) X10^3/uL Neut % (Auto) 57.7 (50-75) % Lymph % (Auto) 31.4 (25-40) % [place] % (Auto) 9.2 (3-14) % Eos % (Auto) 0.9 L (2-4) % Baso % (Auto) 0.8 (0-2) % Neut # (Auto) 3500 (5396-2802) /uL Lymph # (Auto) 1900 (9271-3116) /uL [place] # (Auto) 600 (0-900) /uL Eos # (Auto) 100 (0-450) /uL Baso # (Auto) 0 (0-100) /uL PT 10.0 L (10.1-12.7) SECONDS INR 0.9 (0.9-1.3) APTT 31 (26.4-36.2) SECONDS ABG pH (7.35-7.45) ABG pCO2 (35-45) mmHg ABG pO2 (80-100) mmHg ABG HCO3 (22-26) mmol/L ABG Total CO2 (21-31) mmol/L ABG O2 Saturation (95-100) % ABG Base Excess (-2-2) mmol/L FiO2 Sodium 136 L (137-145) mmol/L Potassium 4.7 (3.4-5.1) mmol/L Chloride 106 (98-107) mmol/L Carbon Dioxide 24 (22-32) mmol/L BUN 15 (7-17) mg/dL Creatinine 0.59 (0.52-1.04) mg/dL Estimated GFR > 60 (>60) mL/min BUN/Creatinine Ratio 25.4 H (6-22) Glucose 92 (70-100) mg/dL Lactate (0.7-2.1) mmol/L Calcium 9.1 (8.4-10.2) mg/dL Total Bilirubin 0.6 (0.2-1.3) mg/dL AST 60 H (14-36) IU/L ALT 48 H (<35) IU/L Alkaline Phosphatase 39 (38-126) U/L Total Creatine Kinase 143 H (30-135) U/L CK-MB (CK-2) 0.38 (<2.37) ng/mL CK-MB (CK-2) Rel Index 0.3 L (1.5-5.0) % Troponin I 0.012 (0.01-0.034) ng/mL Total Protein 7.9 (6.3-8.2) g/dL Albumin 4.8 (3.5-5.0) g/dL Globulin 3.1 (1.7-4.1) g/dL Albumin/Globulin Ratio 1.5 (1.0-2.8) Procalcitonin (<0.5) ng/mL Serum , Qual (Negative) Urine Color Urine Appearance Urine pH (4.5-8.0) Ur Specific [place] (1.000-1.035) Urine Protein (Negative) Urine Glucose (UA) (Negative) g/dL Urine Ketones (NEGATIVE) Urine Occult Blood (Negative) Urine Nitrate (Negative) Urine Bilirubin (NEGATIVE) Urine Urobilinogen (0.2) E.U./dL Ur Leukocyte Esterase (NEGATIVE) Urine RBC (0-5/HPF) Urine WBC (0-5/HPF) Ur Squamous Epith Cells (0-5/HPF) Urine Bacteria (None) Ur Culture Indicated? U Opiates 300ng/mL cut (Negative) Ur Oxycodone Screen (Negative) Urine Methadone Screen (Negative) Ur Barbiturates Screen (Negative) U Tricyclic Antidepress (Negative) Ur Phencyclidine Scrn (Negative) Ur Amphetamines Screen (Negative) U Methamphetamines Scrn (Negative) Ur MDMA Scrn (Ecstasy) (Negative) U Benzodiazepines Scrn (Negative) Urine Cocaine Screen (Negative) U Marijuana (THC) Screen (Negative) Ethyl Alcohol ( - 10) mg/dL SARS-CoV-2 (PCR) (Negative) 11/08/21 11/08/21 11/08/21 Range/Units 17:40 17:40 17:40 WBC (4.5-11.0) X10^3/uL RBC (4.0-5.2) X10^6/uL Hgb (12.0-16.0) g/dL Hct (36-46) % MCV (80-100) fL MCH (26-34) PG MCHC (30-36) % RDW (11.6-14.8) % Plt Count (150-400) X10^3/uL Neut % (Auto) (50-75) % Lymph % (Auto) (25-40) % [place] % (Auto) (3-14) % Eos % (Auto) (2-4) % Baso % (Auto) (0-2) % Neut # (Auto) (8644-8775) /uL Lymph # (Auto) (4912-6238) /uL [place] # (Auto) (0-900) /uL Eos # (Auto) (0-450) /uL Baso # (Auto) (0-100) /uL PT (10.1-12.7) SECONDS INR (0.9-1.3) APTT (26.4-36.2) SECONDS ABG pH (7.35-7.45) ABG pCO2 (35-45) mmHg ABG pO2 (80-100) mmHg ABG HCO3 (22-26) mmol/L ABG Total CO2 (21-31) mmol/L ABG O2 Saturation (95-100) % ABG Base Excess (-2-2) mmol/L FiO2 Sodium (137-145) mmol/L Potassium (3.4-5.1) mmol/L Chloride (98-107) mmol/L Carbon Dioxide (22-32) mmol/L BUN (7-17) mg/dL Creatinine (0.52-1.04) mg/dL Estimated GFR (>60) mL/min BUN/Creatinine Ratio (6-22) Glucose (70-100) mg/dL Lactate 1.1 (0.7-2.1) mmol/L Calcium (8.4-10.2) mg/dL Total Bilirubin (0.2-1.3) mg/dL AST (14-36) IU/L ALT (<35) IU/L Alkaline Phosphatase (38-126) U/L Total Creatine Kinase (30-135) U/L CK-MB (CK-2) (<2.37) ng/mL CK-MB (CK-2) Rel Index (1.5-5.0) % Troponin I (0.01-0.034) ng/mL Total Protein (6.3-8.2) g/dL Albumin (3.5-5.0) g/dL Globulin (1.7-4.1) g/dL Albumin/Globulin Ratio (1.0-2.8) Procalcitonin (<0.5) ng/mL Serum , Qual Negative (Negative) Urine Color Urine Appearance Urine pH (4.5-8.0) Ur Specific [place] (1.000-1.035) Urine Protein (Negative) Urine Glucose (UA) (Negative) g/dL Urine Ketones (NEGATIVE) Urine Occult Blood (Negative) Urine Nitrate (Negative) Urine Bilirubin (NEGATIVE) Urine Urobilinogen (0.2) E.U./dL Ur Leukocyte Esterase (NEGATIVE) Urine RBC (0-5/HPF) Urine WBC (0-5/HPF) Ur Squamous Epith Cells (0-5/HPF) Urine Bacteria (None) Ur Culture Indicated? U Opiates 300ng/mL cut (Negative) Ur Oxycodone Screen (Negative) Urine Methadone Screen (Negative) Ur Barbiturates Screen (Negative) U Tricyclic Antidepress (Negative) Ur Phencyclidine Scrn (Negative) Ur Amphetamines Screen (Negative) U Methamphetamines Scrn (Negative) Ur MDMA Scrn (Ecstasy) (Negative) U Benzodiazepines Scrn (Negative) Urine Cocaine Screen (Negative) U Marijuana (THC) Screen (Negative) Ethyl Alcohol < 10 ( - 10) mg/dL SARS-CoV-2 (PCR) (Negative) 11/08/21 11/08/21 11/08/21 Range/Units 17:58 18:03 19:28 WBC (4.5-11.0) X10^3/uL RBC (4.0-5.2) X10^6/uL Hgb (12.0-16.0) g/dL Hct (36-46) % MCV (80-100) fL MCH (26-34) PG MCHC (30-36) % RDW (11.6-14.8) % Plt Count (150-400) X10^3/uL Neut % (Auto) (50-75) % Lymph % (Auto) (25-40) % [place] % (Auto) (3-14) % Eos % (Auto) (2-4) % Baso % (Auto) (0-2) % Neut # (Auto) (0021-6855) /uL Lymph # (Auto) (0592-5348) /uL [place] # (Auto) (0-900) /uL Eos # (Auto) (0-450) /uL Baso # (Auto) (0-100) /uL PT (10.1-12.7) SECONDS INR (0.9-1.3) APTT (26.4-36.2) SECONDS ABG pH 7.38 7.34 L (7.35-7.45) ABG pCO2 40.7 48.9 H (35-45) mmHg ABG pO2 42 L* 442 H* (80-100) mmHg ABG HCO3 25 27 H (22-26) mmol/L ABG Total CO2 26 28 (21-31) mmol/L ABG O2 Saturation 77 L* 100 (95-100) % ABG Base Excess -1.0 1.0 (-2-2) mmol/L FiO2 32 100 Sodium (137-145) mmol/L Potassium (3.4-5.1) mmol/L Chloride (98-107) mmol/L Carbon Dioxide (22-32) mmol/L BUN (7-17) mg/dL Creatinine (0.52-1.04) mg/dL Estimated GFR (>60) mL/min BUN/Creatinine Ratio (6-22) Glucose (70-100) mg/dL Lactate (0.7-2.1) mmol/L Calcium (8.4-10.2) mg/dL Total Bilirubin (0.2-1.3) mg/dL AST (14-36) IU/L ALT (<35) IU/L Alkaline Phosphatase (38-126) U/L Total Creatine Kinase (30-135) U/L CK-MB (CK-2) (<2.37) ng/mL CK-MB (CK-2) Rel Index (1.5-5.0) % Troponin I (0.01-0.034) ng/mL Total Protein (6.3-8.2) g/dL Albumin (3.5-5.0) g/dL Globulin (1.7-4.1) g/dL Albumin/Globulin Ratio (1.0-2.8) Procalcitonin (<0.5) ng/mL Serum , Qual (Negative) Urine Color Urine Appearance Urine pH (4.5-8.0) Ur Specific [place] (1.000-1.035) Urine Protein (Negative) Urine Glucose (UA) (Negative) g/dL Urine Ketones (NEGATIVE) Urine Occult Blood (Negative) Urine Nitrate (Negative) Urine Bilirubin (NEGATIVE) Urine Urobilinogen (0.2) E.U./dL Ur Leukocyte Esterase (NEGATIVE) Urine RBC (0-5/HPF) Urine WBC (0-5/HPF) Ur Squamous Epith Cells (0-5/HPF) Urine Bacteria (None) Ur Culture Indicated? U Opiates 300ng/mL cut (Negative) Ur Oxycodone Screen (Negative) Urine Methadone Screen (Negative) Ur Barbiturates Screen (Negative) U Tricyclic Antidepress (Negative) Ur Phencyclidine Scrn (Negative) Ur Amphetamines Screen (Negative) U Methamphetamines Scrn (Negative) Ur MDMA Scrn (Ecstasy) (Negative) U Benzodiazepines Scrn (Negative) Urine Cocaine Screen (Negative) U Marijuana (THC) Screen (Negative) Ethyl Alcohol ( - 10) mg/dL SARS-CoV-2 (PCR) Negative (Negative) 11/08/21 11/08/21 11/08/21 Range/Units 20:47 20:47 23:10 WBC (4.5-11.0) X10^3/uL RBC (4.0-5.2) X10^6/uL Hgb (12.0-16.0) g/dL Hct (36-46) % MCV (80-100) fL MCH (26-34) PG MCHC (30-36) % RDW (11.6-14.8) % Plt Count (150-400) X10^3/uL Neut % (Auto) (50-75) % Lymph % (Auto) (25-40) % [place] % (Auto) (3-14) % Eos % (Auto) (2-4) % Baso % (Auto) (0-2) % Neut # (Auto) (9723-7436) /uL Lymph # (Auto) (7547-9979) /uL [place] # (Auto) (0-900) /uL Eos # (Auto) (0-450) /uL Baso # (Auto) (0-100) /uL PT (10.1-12.7) SECONDS INR (0.9-1.3) APTT (26.4-36.2) SECONDS ABG pH (7.35-7.45) ABG pCO2 (35-45) mmHg ABG pO2 (80-100) mmHg ABG HCO3 (22-26) mmol/L ABG Total CO2 (21-31) mmol/L ABG O2 Saturation (95-100) % ABG Base Excess (-2-2) mmol/L FiO2 Sodium (137-145) mmol/L Potassium (3.4-5.1) mmol/L Chloride (98-107) mmol/L Carbon Dioxide (22-32) mmol/L BUN (7-17) mg/dL Creatinine (0.52-1.04) mg/dL Estimated GFR (>60) mL/min BUN/Creatinine Ratio (6-22) Glucose (70-100) mg/dL Lactate (0.7-2.1) mmol/L Calcium (8.4-10.2) mg/dL Total Bilirubin (0.2-1.3) mg/dL AST (14-36) IU/L ALT (<35) IU/L Alkaline Phosphatase (38-126) U/L Total Creatine Kinase 131 (30-135) U/L CK-MB (CK-2) (<2.37) ng/mL CK-MB (CK-2) Rel Index (1.5-5.0) % Troponin I (0.01-0.034) ng/mL Total Protein (6.3-8.2) g/dL Albumin (3.5-5.0) g/dL Globulin (1.7-4.1) g/dL Albumin/Globulin Ratio (1.0-2.8) Procalcitonin < 0.03 (<0.5) ng/mL Serum , Qual (Negative) Urine Color Yellow Urine Appearance Clear Urine pH 5.0 (4.5-8.0) Ur Specific [place] 1.015 (1.000-1.035) Urine Protein Negative (Negative) Urine Glucose (UA) Negative (Negative) g/dL Urine Ketones Negative (NEGATIVE) Urine Occult Blood Negative (Negative) Urine Nitrate Negative (Negative) Urine Bilirubin Negative (NEGATIVE) Urine Urobilinogen 0.2 (0.2) E.U./dL Ur Leukocyte Esterase Negative (NEGATIVE) Urine RBC 0-1/hpf (0-5/HPF) Urine WBC None seen (0-5/HPF) Ur Squamous Epith Cells 0-1 /hpf (0-5/HPF) Urine Bacteria None seen (None) Ur Culture Indicated? Cult not indicated U Opiates 300ng/mL cut Positive (Negative) Ur Oxycodone Screen Negative (Negative) Urine Methadone Screen Negative (Negative) Ur Barbiturates Screen Negative (Negative) U Tricyclic Antidepress Negative (Negative) Ur Phencyclidine Scrn Negative (Negative) Ur Amphetamines Screen Negative (Negative) U Methamphetamines Scrn Negative (Negative) Ur MDMA Scrn (Ecstasy) Negative (Negative) U Benzodiazepines Scrn Negative (Negative) Urine Cocaine Screen Negative (Negative) U Marijuana (THC) Screen Negative (Negative) Ethyl Alcohol ( - 10) mg/dL SARS-CoV-2 (PCR) (Negative) Point of Care Testing Glucose POC 76 Critical Care Time <Tere Duke, DO - Last Filed: 11/14/21 05:02> Critical Care Time Critical Care Time: Yes Total Critical Care Time: 45 Attestation: The high probability of a clinically significant, sudden or life threatening deterioration of the [cardiac, pulm, neuro] system(s) required my full and direct attention, intervention and personal management. The aggregate critical c are time was [] minutes. This time is in addition to time spent performing reported procedures but includes the following: [x] Data Review and interpretation [x] Patient assessment and monitoring of vital signs [x] Documentation [x] Medication orders and management <Tomasz Gutierrez MD - Last Filed: 11/09/21 03:04> Critical Care Time Total Critical Care Time: 35 Discharge Plan Departure Patient Disposition: [facility] Clinical Impression: Focal motor seizure Prescriptions: No Action Mirena 20 mcg/24 hours (5 yrs) 52 mg intrauterine device intrauterine oxycodone-acetaminophen 5-325 mg tablet 1 tab PO Q6H PRN (Reason: pain) Qty: 14 0RF epinephrine 0.3 mg/0.3 mL auto-injector 0.3 mg IM Q5-15M PRN (Reason: anaphylaxis) Qty: 2 0RF Rx Instructions: do not exceed 3 doses per episode Referrals: Fiona Doe ARNP [Primary Care Provider] -
[2021-11-08 17:59] LABS: INR 0.9 (0.9-1.3)
--- NOTE | 2021-11-08 18:00 | PC.NURSE ---
Pt vitals stable, pointing to neck/throat. States yes when asked if she is having pain and trouble breathing. ABGs obtained by RT. Pt had 2-3 episodes of closing eyes and not responding for 5-8 seconds, then quickly opening eyes, breathing more rapid/deeply. MD notified. Pt still having frequent kicking of left leg, and spasms of left cheek/face/arm. 18:15 RT, MD, nursing in room. Spouse also in room. Decision to intubate being made as results from ABG have returned. Supplies/meds brought to room. Spouse wants to wait in waiting room. 1838: Meds given and pt intubated with out complications. Propofol drip started. Pt rouses easily to voice. Nods head in understanding of process. Reports discomfort in her throat. Additional meds given and orders for Midazolam drip received. 1900: E[place]a placed. 2000: Continue to work towards pt being more comfortable and increasing sedation/drips to achieve this. Soft restraints in place to protect ET tube. Spouse at bedside. He denies any change in meds, alcohol use or other significant changes recently. Asks Could this be stress related?? Reports pt has been very busy with work responsibilities and kids activities.
[2021-11-08 18:02] LABS: PTT Partial Thromboplastin Tim 31 SECONDS (26.4-36.2)
[2021-11-08 18:03] LABS: Alanine Aminotransferase 48 IU/L (<35); Albumin 4.8 g/dL (3.5-5.0); Albumin Globulin Ratio 1.5 (1.0-2.8); Alkaline Phosphatase 39 U/L (38-126); Aspartate Aminotransferase 60 IU/L (14-36); BUN Creatinine Ratio 25.4 (6-22); Bilirubin Total 0.6 mg/dL (0.2-1.3); Blood Urea Nitrogen 15 mg/dL (7-17); Calcium 9.1 mg/dL (8.4-10.2); Carbon Dioxide 24 mmol/L (22-32); Chloride 106 mmol/L (98-107); Creatine Kinase 143 U/L (30-135); Estimated Glomerular Filt Rate > 60 mL/min (>60); Globulin 3.1 g/dL (1.7-4.1); Glucose 92 mg/dL (70-100); Potassium 4.7 mmol/L (3.4-5.1); Sodium 136 mmol/L (137-145); Total Protein 7.9 g/dL (6.3-8.2)
[2021-11-08 18:04] LABS: Ethanol (ETOH) < 10 mg/dL
[2021-11-08 18:07] LABS: Pregnancy Test Serum,Qual Negative (Negative)
[2021-11-08] MEDS: MIDAZOLAM 2 MG/2 ML VIAL 1 MG IV (18:07)
[2021-11-08] MEDS: SODIUM CHLORIDE 0.9% 1,000 ML 150 ML IV ×2 (18:07→22:31)
[2021-11-08 18:14] LABS: Troponin I 0.012 ng/mL (0.01-0.034)
[2021-11-08] MEDS: levETIRAcetam 1,000 MG in SODIUM CHLORIDE 0.9% 100 ML 440 MG IV (18:15)
[2021-11-08 18:18] LABS: CKMB % Relative Index 0.3 % (1.5-5.0); Creatine Kinase MB 0.38 ng/mL (<2.37)
[2021-11-08 18:23] LABS: HEMOLYSIS 112 (0-50)
[2021-11-08] MEDS: MORPHINE 4 MG/ML INJ IV (18:23)
[2021-11-08 18:29] LABS: COVID19 -Nasal RAPID Negative (Negative)
[2021-11-08] MEDS: ETOMIDATE 2 MG/ML 10 ML VIAL 10 MG IV (18:38)
[2021-11-08] MEDS: SUCCINYLCHOLINE 200 MG/10 ML VIAL 150 MG IV (18:38)
--- NOTE | 2021-11-08 18:41 | DI.RAD.S_ITS ---
PROCEDURE: XR CHEST 1V INDICATIONS: post-intubation TECHNIQUE: One view of the chest was acquired. COMPARISON: None. FINDINGS: Surgical changes and devices: ET tube projects 1.7 centimeters superior to the leatha and should be pulled back 2-3 centimeters. Lungs and pleura: Lungs are clear. No pleural effusions or pneumothorax. Mediastinum: Mediastinal contours appear normal. Heart size is normal. Bones and chest wall: No suspicious bony lesions. Overlying soft tissues appear unremarkable. IMPRESSION: ET tube 1.7 centimeters superior to the leatha. Dictated by: Ara Al MD, PhD on 11/08/2021 at 17:49 Approved by: Ara Al MD, PhD on 11/08/2021 at 17:50
[2021-11-08] MEDS: propofoL 1,000 MG/100 ML VIAL 2.354 MG IV (18:46)
[2021-11-08 19:05] LABS: HCO3 ABG 25 mmol/L (22-26); Oxygen Saturation ABG 77 % (95-100); PCO2 ABG 40.7 mmHg (35-45); PO2 ABG 42 mmHg (80-100); TCO2 ABG 26 mmol/L (21-31); pH ABG 7.38 (7.35-7.45)
[2021-11-08 19:06] LABS: Fractionated Inspired Oxygen 32
[2021-11-08] MEDS: MIDAZOLAM 50 MG in DEXTROSE 5% IN WATER 240 ML 25 MG IV (19:11)
[2021-11-08 19:43] LABS: pH ABG 7.34 (7.35-7.45)
[2021-11-08 19:44] LABS: Fractionated Inspired Oxygen 100; HCO3 ABG 27 mmol/L (22-26); Oxygen Saturation ABG 100 % (95-100); PCO2 ABG 48.9 mmHg (35-45); PO2 ABG 442 mmHg (80-100); TCO2 ABG 28 mmol/L (21-31)
[2021-11-08] MEDS: fentaNYL 100 MCG/2 ML INJ (19:51)
[2021-11-08] MEDS: fentaNYL 100 MCG/2 ML INJ 50 MCG IV ×3 (20:15→23:21)
--- NOTE | 2021-11-08 20:31 | DI.RAD.S_ITS ---
PROCEDURE: XR CHEST 1V INDICATIONS: og tube placement TECHNIQUE: One view of the chest was acquired. COMPARISON: [facility], CR, XR CHEST 1V, 11/08/2021, 18:37. FINDINGS: Surgical changes and devices: Endotracheal tube extends to the leatha. There is a new orogastric tube extending into the stomach. Lungs and pleura: There are low lung volumes. No focal consolidation. No pleural effusions or pneumothorax. Mediastinum: Mediastinal contours appear normal. Heart size is normal. Bones and chest wall: No suspicious bony lesions. Overlying soft tissues appear unremarkable. IMPRESSION: 1. Endotracheal tube extends to the level of the leatha. Recommend withdrawal by 3-4 cm. Findings reported to Dr. Gutierrez on 11/08/2021 at 9:05 p.m.. Dictated by: Gordo Broussard M.D. on 11/08/2021 at 21:01 Approved by: Gordo Broussard M.D. on 11/08/2021 at 21:06
[2021-11-08 21:12] LABS: UR Morphine/Opiate cutoff 300 POSITIVE (Negative); Ur Creatinine Normal (Normal); Ur Specific Gravity Normal (Normal); Urine pH Normal (Normal)
[2021-11-08 21:13] LABS: Urine Amphetamines Negative (Negative); Urine Barbiturates Negative (Negative); Urine Benzodiazepines Negative (Negative); Urine Cocaine Negative (Negative); Urine MDMA Negative (Negative); Urine Methadone Negative (Negative); Urine Methamphetamines Negative (Negative); Urine Oxycodone Negative (Negative); Urine Phencyclidine Negative (Negative); Urine Tetrahydrocannabinol Negative (Negative); Urine Tricyclic Antidepressant Negative (Negative)
[2021-11-08] MEDS: propofoL 1,000 MG/100 ML VIAL 28.25 MG IV (21:18)
[2021-11-08 21:50] LABS: Lactate (Lactic Acid) 1.1 mmol/L (0.7-2.1)
[2021-11-08] MEDS: levETIRAcetam 2,000 MG in SODIUM CHLORIDE 0.9% 100 ML 480 MG IV (22:03)
[2021-11-08 22:24] LABS: Appearance Urine UA CLEAR; Bilirubin Urine UA NEGATIVE (NEGATIVE); Color Urine UA YELLOW; Glucose Urine UA NEGATIVE (Negative); Ketones Urine UA NEGATIVE (NEGATIVE); Leukocyte Esterase Urine UA NEGATIVE (NEGATIVE); Nitrite Urine UA NEGATIVE (Negative); Occult Blood Urine UA NEGATIVE (Negative); Protein Urine UA NEGATIVE (Negative); RBC Urine 0-1/HPF (0-5/HPF); Specific Gravity Urine UA 1.015 (1.000-1.035); Urobilinogen Urine UA 0.2 E.U./dL (0.2); WBC Urine None Seen (0-5/HPF)
[2021-11-08 22:25] LABS: Bacteria Urine None Seen; Culture Indicated Urine Cult Not Indicated; Squamous Epithelial Cell Urine 0-1 /HPF (0-5/HPF)
[2021-11-08 23:27] LABS: Creatine Kinase 131 U/L (30-135)
[2021-11-08 23:45] LABS: Procalcitonin < 0.03 ng/mL (<0.5)
== END 2021-11-09 00:12 | disposition short-term general hospital (02) ==
PROVIDERS: Emergency Medicine; Emergency Provider Emergency Medicine; PCP Internal Medicine; Referring Provider Internal Medicine
DX: G40.109 Localization-related (focal) (partial) symptomatic epilepsy and epileptic syndromes with simple partial seizures, not intractable, without status epilepticus (principal); R55 Syncope and collapse; Z20.822 Contact with and (suspected) exposure to COVID-19
CPT/HCPCS: 31500; 36415; 36600; 70450; 70496; 70498; 71045; 80053; 80305; 80320; 81001; 82550; 82553; 82805; 82962; 83605; 84145; 84484; 84703; 85025; 85610; 85730; 87635; 93005; 93010; 94002; 94799; 96365; 96366; 96368; 96375; 96376; 99152; 99153; 99285; 99291; 99292; C9803; J0330; J1953; J2250; J2270; J2704; J3010

== ENCOUNTER 2021-11-12 14:49 | Emergency (ER) | payer OTHER, SELFPAY ==
[2021-11-08 23:15] VITALS: PULSE 92; RESP 15; O2SAT 100
[2021-11-12] VITALS (10 sets, daily range): BP systolic 102–144; BP diastolic 53–107; PULSE 86–118; RESP 18–44; TEMP 36.8–37.1; O2SAT 97–100
[2021-11-12] MEDS: EPINEPHrine 1 MG/ML 0.5 MG IM (14:54)
--- NOTE | 2021-11-12 14:58 | DI.RAD.S_ITS ---
PROCEDURE: XR CHEST 1V INDICATIONS: short of breath TECHNIQUE: One view of the chest was acquired. COMPARISON: [facility], CR, XR CHEST 1V, 11/08/2021, 18:37. [facility], CR, XR CHEST 1V, 11/08/2021, 20:31. FINDINGS: Surgical changes and devices: None. Lungs and pleura: An incomplete inspiratory result is noted, causing a crowded appearance to the lung markings. No focal infiltrates are seen. No pneumothorax or significant pleural effusions are seen. Mediastinum: Mediastinal contours appear normal. Heart size is normal. Bones and chest wall: No suspicious bony lesions. Overlying soft tissues appear unremarkable. IMPRESSION: Low lung volumes, without focal infiltrates seen. Dictated by: Rohit Wallace M.D. on 11/12/2021 at 15:18 Approved by: Rohit Wallace M.D. on 11/12/2021 at 15:19
--- NOTE | 2021-11-12 15:03 | ED.SOB ---
HPI - SOB/Dyspnea General Chief Complaint: Shortness of Breath/Dyspnea Stated Complaint: shaking/cant walk x5 days Time Seen by Provider: 11/12/21 14:55 History of Present Illness HPI Narrative: The patient is a 36-year-old female who presents suddenly with difficulty breathing and stridor along with syncope. She was sleeping on the couch her kids woke her up for ice cream he says she has any min get to eat ice cream when she suddenly choked on some phlegm. She felt her airway started spasming she has inspiratory and expiratory stridor. She passed out at registration. She is quite tachypneic. No obvious perioral edema or hives. He has obvious shaking of the left leg and all over her body. Patient apparently was intubated at [facility] on November 08 the thought to be for focal seizures. She had a similar episode and presentation at that time. He was thought to have possible focal seizure she is given CT Versed and intubated for airway protection it does not appear that she had any sort of stridor at that time. She she was transferred to [facility] where she had a full workup including EEG MRI and CT. It was determined that this is unlikely to be seizure related. There is a possibility of serotonin syndrome with her fluoxetine however she does not take any extra doses and only takes 1 tablet daily so thought to be unlikely. Possibly excessive caffeine use. She states that she does drink a lot of caffeine. states that on Sunday she had some sort of chicken bake from [employer] and today she had cup of chicken noodle soup. Wondering if there is correlation with chicken. Related Data Home Medications Medication Instructions Recorded Confirmed levonorgestrel 20 mcg/24 hours (7 intrauterine 09/12/18 12/11/20 yrs) 52 mg intrauterine device (Mirena) Previous Rx's Medication Instructions Recorded oxycodone-acetaminophen 5 mg-325 1 tab PO Q6H PRN pain #14 tabs 08/30/21 mg tablet epinephrine 0.3 mg/0.3 mL 0.3 mg (0.3 mL) IM Q5-15M PRN 11/12/21 injection, auto-injector anaphylaxis #2 ea Allergies Allergy/AdvReac Type Severity Reaction Status Date / Time latex [LATEX] Allergy Mild MILD RASH Verified 11/12/21 15:02 Review of Systems Review of Systems Narrative: See HPI Patient History Medical History Chicken pox Depression (~2005) Headache Kidney stones (~2010) Migraines (~2008) Painful menstrual periods Surgical History Anesthesia History of tonsillectomy (~2001) Status post delivery (10/23/11) Status post delivery (07/14/13) Family History Grandfather No problems noted. Social History Smoking Status: Never smoker Smoking Status: Never smoker alcohol intake frequency: 0-2 drinks per day Substance Use Type: does not use Exam Initial Vital Signs Initial Vital Signs: Vital Signs Temperature 98.2 F 11/12/21 15:02 Pulse Rate 118 H 11/12/21 15:02 Respiratory Rate 44 H 11/12/21 15:02 Blood Pressure 144/107 H 11/12/21 15:02 Pulse Oximetry 100 11/12/21 15:02 Oxygen Delivery Method 11/12/21 15:02 GENERAL: Alert 36-year-old female respiratory distress HEENT: Head atraumatic,EOMI, pupils reactive, face symmetric, no tongue swelling no lip swelling, no uvula swelling CARDIOVASCULAR: Regular rate and rhythm without murmurs, rubs or gallops. RESPIRATORY: Tachypneic inspiratory expiratory stridor lungs are clear without wheezing or rales ABDOMEN: Soft, nontender. Normoactive bowel sounds all 4 quadrants. No guarding or rebound. EXTREMITIES: Normal range of motion, no clubbing or edema. Neurovascularly intact NEUROLOGICAL: Able to follow commands shaking tremors more on the left leg SKIN: Warm, dry, no laceration, no petechiae, no rashes or lesions. No hives Course Orders Ordered: ED Orders 11/12/21 14:58 XR chest 1V Stat EKG-12 Lead Stat 11/12/21 15:00 COVID19 -Nasal RAPID/Pre-Proc Stat Complete Blood Count AUTO DIFF Stat Comprehensive Metabolic Panel Stat D Dimer Stat Lactate (Lactic Acid) Stat Lipase Stat NT-proBNP (BNP-Adult 18+) Stat Troponin & CK Cardiac Panel Stat 11/12/21 15:04 ABG [Arterial Blood Gas] Stat 11/12/21 16:34 CT angio chest PE protocol Stat Discontinued Medications Diazepam (Diazepam 10 Mg/2 Ml Syringe) 2 mg IV NOW ONE Stop: 11/12/21 14:57 Last Admin: 11/12/21 15:08 Dose: 2 mg Documented By: GUSTAVO Diphenhydramine HCl (Diphenhydramine 50 Mg/Ml Vial) 25 mg IV NOW ONE Stop: 11/12/21 14:57 Last Admin: 11/12/21 15:16 Dose: 25 mg Documented By: GUSTAVO Epinephrine (Racepinephrine 0.5 Ml Neb) 1 ml INH NOW ONE Stop: 11/12/21 14:56 Last Admin: 11/12/21 15:11 Dose: Not Given Documented By: LUPILLO Epinephrine (Racepinephrine 0.5 Ml Neb) 0.5 ml INH NOW ONE Stop: 11/12/21 14:57 Last Admin: 11/12/21 15:10 Dose: Not Given Documented By: LUPILLO Epinephrine HCl (Epinephrine 1 Mg/Ml) 0.5 mg IM NOW ONE Stop: 11/12/21 14:57 Last Admin: 11/12/21 14:54 Dose: 0.5 mg Documented By: GUSTAVO Famotidine (Famotidine 20 Mg/2 Ml Vial) 20 mg IV NOW [facility] Last Admin: 11/12/21 15:14 Dose: 20 mg Documented By: GUSTAVO Sodium Chloride (Normal Saline 0.9%) 1,000 mls @ 150 mls/hr IV CONT [facility] Last Infusion: 11/12/21 17:57 Dose: 0 mls/hr Documented By: Admin: 11/12/21 15:11 Dose: 150 mls/hr Documented By: GUSTAVO Methylprednisolone (Methylprednisolone 125 Mg/2 Ml Vial) 125 mg IV NOW ONE Stop: 11/12/21 14:57 Last Admin: 11/12/21 15:12 Dose: 125 mg Documented By: GUSTAVO Vital Signs Vital signs: Vital Signs - 8 hr 11/12/21 15:02 11/12/21 15:15 11/12/21 15:30 Temperature 98.2 F Pulse Rate 118 H 110 H Respiratory Rate 44 H 22 Blood Pressure 144/107 H 126/57 L Pulse Oximetry 100 99 Oxygen Delivery Method Room Air 11/12/21 15:30 11/12/21 15:45 11/12/21 15:45 Temperature Pulse Rate 113 H 101 H Respiratory Rate 27 H 26 H Blood Pressure 122/58 L Pulse Oximetry 100 99 Oxygen Delivery Method Room Air 11/12/21 16:00 11/12/21 16:00 11/12/21 16:15 Temperature Pulse Rate 102 H 100 H Respiratory Rate 22 24 Blood Pressure 123/54 L Pulse Oximetry 99 99 Oxygen Delivery Method Room Air 11/12/21 16:15 11/12/21 16:30 11/12/21 16:30 Temperature Pulse Rate 101 H Respiratory Rate 24 Blood Pressure 112/53 L 115/59 L Pulse Oximetry 99 Oxygen Delivery Method 11/12/21 16:45 11/12/21 16:45 11/12/21 17:30 Temperature Pulse Rate 97 H 86 Respiratory Rate 22 24 Blood Pressure 102/58 L Pulse Oximetry 99 98 Oxygen Delivery Method 11/12/21 18:02 Temperature 98.7 F Pulse Rate 89 Respiratory Rate 18 Blood Pressure 102/58 L Pulse Oximetry 97 Oxygen Delivery Method Room Air MDM - SOB/Dyspnea Lab Data Result diagrams: 11/12/21 15:00 11/12/21 15:00 Labs: Lab Results 11/12/21 11/12/21 11/12/21 Range/Units 15:00 15:00 15:00 WBC 7.2 (4.5-11.0) X10^3/uL RBC 4.64 (4.0-5.2) X10^6/uL Hgb 13.5 (12.0-16.0) g/dL Hct 39.2 (36-46) % MCV 84.4 (80-100) fL MCH 29.1 (26-34) PG MCHC 34.5 (30-36) % RDW 13.8 (11.6-14.8) % Plt Count 274 (150-400) X10^3/uL Neut % (Auto) 70.4 (50-75) % Lymph % (Auto) 18.6 L (25-40) % Sandoval % (Auto) 9.2 (3-14) % Eos % (Auto) 1.1 L (2-4) % Baso % (Auto) 0.7 (0-2) % Neut # (Auto) 5000 (7943-1018) /uL Lymph # (Auto) 1300 (0266-8390) /uL Sandoval # (Auto) 700 (0-900) /uL Eos # (Auto) 100 (0-450) /uL Baso # (Auto) 0 (0-100) /uL D-Dimer (<500) ng/ml ABG pH (7.35-7.45) ABG pCO2 (35-45) mmHg ABG pO2 (80-100) mmHg ABG HCO3 (22-26) mmol/L ABG Total CO2 (21-31) mmol/L ABG O2 Saturation (95-100) % ABG Base Excess (-2-2) mmol/L FiO2 Sodium 139 (137-145) mmol/L Potassium 3.3 L D (3.4-5.1) mmol/L Chloride 104 (98-107) mmol/L Carbon Dioxide 22 (22-32) mmol/L BUN 7 (7-17) mg/dL Creatinine 0.60 (0.52-1.04) mg/dL Estimated GFR > 60 (>60) mL/min BUN/Creatinine Ratio 11.7 (6-22) Glucose 148 H (70-100) mg/dL Lactate 1.5 (0.7-2.1) mmol/L Calcium 9.1 (8.4-10.2) mg/dL Total Bilirubin 0.4 (0.2-1.3) mg/dL AST 51 H (14-36) IU/L ALT 53 H (<35) IU/L Alkaline Phosphatase 59 (38-126) U/L Total Creatine Kinase 121 (30-135) U/L CK-MB (CK-2) 0.26 (<2.37) ng/mL CK-MB (CK-2) Rel Index 0.2 L (1.5-5.0) % Troponin I < 0.012 (0.01-0.034) ng/mL NT-Pro-B Natriuret Pep 25 (<125) pg/mL Total Protein 7.9 (6.3-8.2) g/dL Albumin 4.5 (3.5-5.0) g/dL Globulin 3.4 (1.7-4.1) g/dL Albumin/Globulin Ratio 1.3 (1.0-2.8) Lipase 136 (23-300) U/L SARS-CoV-2 (PCR) (Negative) 11/12/21 11/12/21 11/12/21 Range/Units 15:00 15:00 15:04 WBC (4.5-11.0) X10^3/uL RBC (4.0-5.2) X10^6/uL Hgb (12.0-16.0) g/dL Hct (36-46) % MCV (80-100) fL MCH (26-34) PG MCHC (30-36) % RDW (11.6-14.8) % Plt Count (150-400) X10^3/uL Neut % (Auto) (50-75) % Lymph % (Auto) (25-40) % Sandoval % (Auto) (3-14) % Eos % (Auto) (2-4) % Baso % (Auto) (0-2) % Neut # (Auto) (5364-6442) /uL Lymph # (Auto) (6575-1405) /uL Sandoval # (Auto) (0-900) /uL Eos # (Auto) (0-450) /uL Baso # (Auto) (0-100) /uL D-Dimer 678 H (<500) ng/ml ABG pH 7.42 (7.35-7.45) ABG pCO2 33.4 L (35-45) mmHg ABG pO2 114 H (80-100) mmHg ABG HCO3 22 (22-26) mmol/L ABG Total CO2 23 (21-31) mmol/L ABG O2 Saturation 99 (95-100) % ABG Base Excess -2.0 (-2-2) mmol/L FiO2 20 Sodium (137-145) mmol/L Potassium (3.4-5.1) mmol/L Chloride (98-107) mmol/L Carbon Dioxide (22-32) mmol/L BUN (7-17) mg/dL Creatinine (0.52-1.04) mg/dL Estimated GFR (>60) mL/min BUN/Creatinine Ratio (6-22) Glucose (70-100) mg/dL Lactate (0.7-2.1) mmol/L Calcium (8.4-10.2) mg/dL Total Bilirubin (0.2-1.3) mg/dL AST (14-36) IU/L ALT (<35) IU/L Alkaline Phosphatase (38-126) U/L Total Creatine Kinase (30-135) U/L CK-MB (CK-2) (<2.37) ng/mL CK-MB (CK-2) Rel Index (1.5-5.0) % Troponin I (0.01-0.034) ng/mL NT-Pro-B Natriuret Pep (<125) pg/mL Total Protein (6.3-8.2) g/dL Albumin (3.5-5.0) g/dL Globulin (1.7-4.1) g/dL Albumin/Globulin Ratio (1.0-2.8) Lipase (23-300) U/L SARS-CoV-2 (PCR) Positive H (Negative) Imaging Data Chest x-ray: Radiologist's Impression: t: Blas Marte MR#: [id number] : 1985 Acct:[id number] Age/Sex: 36 / F Date of Service: 11/12/21 Loc: ED Accession Number: [id number] ?? Procedure: XR chest 1V Ordering Provider: Tonya Escobedo D.O. PROCEDURE:? XR CHEST 1V ? INDICATIONS:? short of breath ? TECHNIQUE:? One view of the chest was acquired.? ? COMPARISON:? [facility], , XR CHEST 1V, 11/08/2021, 18:37.? [facility], , XR CHEST 1V, 11/08/2021, 20:31. ? FINDINGS:? ? Surgical changes and devices:? None.? ? Lungs and pleura:? An incomplete inspiratory result is noted, causing a crowded appearance to the lung markings.? No focal infiltrates are seen.? No pneumothorax or significant pleural effusions are seen. ? ? Mediastinum:? Mediastinal contours appear normal.? Heart size is normal.? ? Bones and chest wall:? No suspicious bony lesions.? Overlying soft tissues appear unremarkable.? ? ? IMPRESSION:? ? Low lung volumes, without focal infiltrates seen. ? ? Dictated by: Rohit Wallace M.D. on 11/12/2021 at 15:18 ? ? CT scan - chest: Radiologist's Impression: CT Scan Report Signed Patient: Blas Marte MR#: [id number] : 1985 Acct:[id number] Age/Sex: 36 / F Date of Service: 11/12/21 Loc: ED Accession Number: [id number] ?? Procedure: CT angio chest PE protocol Ordering Provider: Tonya Escobedo D.O. PROCEDURE:? CT ANGIO CHEST PE PROTOCOL ? INDICATIONS:? COVID passing out high dimer ? TECHNIQUE:? After the administration of intravenous contrast, 2 mm thick sections acquired from the pulmonary apices to the posterior costophrenic angles.? 3-dimensional maximum intensity projection (MIP) coronal and sagittal reformats were then acquired through the thorax.? For radiation dose reduction, the following was used:? automated exposure control, adjustment of mA and/or kV according to patient size.? ? COMPARISON:? [facility], CR, XR CHEST 1V, 11/12/2021, 15:41. ? FINDINGS:? Image quality:? Excellent.? ? Pulmonary arteries:? Pulmonary arteries are normal in size, and demonstrate no intraluminal filling defects to suggest central pulmonary embolism.? ? Lungs and pleura:? Low lung volumes and mild interstitial prominence can be seen.? No pleural effusions or pneumothorax.? Central and peripheral airways are patent.? ? Mediastinum:? Heart size is normal, without pericardial effusion.? No mediastinal or hilar adenopathy.? Thoracic aorta is normal in caliber and enhancement.? Esophagus is normal in caliber, without hiatal hernia.? ? Bones and chest wall:? No suspicious bony lesions.? Ribs and thoracic spine appear intact throughout.? Thyroid gland demonstrates no significant abnormality.? No axillary or supraclavicular adenopathy.? ? Abdomen:? An enlarged, diffusely fatty liver can be seen. The visualized portions of the upper abdominal structures are otherwise unremarkable for imaging technique. ? ? ? IMPRESSION:? Negative for pulmonary embolism. ? Generalized mild interstitial prominence can be seen and low lung volumes are seen, which are consistent with the given history of COVID pneumonia. ? ? ? Incidental note is made of: Enlarged, fatty liver. ? ? Dictated by: Rohit Wallace M.D. on 11/12/2021 at 16:13 ? ? Approved by: Rohit Wallace M.D. on 11/12/2021 at 16:15 ? ECG Data Interpretation: Sinus tachycardia rate 112 DE interval 122 QRS [address] changes MDM Narrative Medical decision making narrative: Initially presents with what is like stridor although possible anxiety possible anaphylaxis. She is treated with IM epinephrine and almost instantaneously gets better. She is given Solu-Medrol and Benadryl as well. She is given some Valium to help with her shaking and possible anxiety. Patient states that she think she choked on some phlegm and her airway started closing up and she had difficulty breathing. She is found to be COVID positive mildly elevated D-dimer CT does not show any pulmonary embolism. She is monitored in the ED off for couple of hours no return of symptoms. She does not have any soft other signs of anaphylaxis seems to have had some airway compromise. Unclear exactly what is causing her symptoms. It sounds like seizure answer tone in syndrome have been ruled out. He says she has not had any caffeine since Sunday, 4 days ago. At this time she is feeling better and feels ready and able to go. Possible anxiety as well. Discharge Plan Departure Patient Disposition: Home Clinical Impression: Anaphylactic reaction, COVID-19 Instructions: Anaphylaxis, COVID-19 Activity Restrictions/Additional Instructions: *You have been diagnosed with possible allergic reaction, your COVID positive *What to do: At this time is difficult to tell what is causing all of her symptoms. It is possible that you have an allergic reaction. I strongly and recommend allergy testing. COVID may or may not be contributing to your symptoms. *Continue to take medications as directed Epinephrine take as directed sent to [facility] *Follow up with your primary care provider in 2-3 days or call [phone] *Return to ER if you should have increased difficulty breathing, chest pain, passing a or any new, worsening or concerning symptoms Prescriptions: New epinephrine 0.3 mg/0.3 mL auto-injector 0.3 mg IM Q5-15M PRN (Reason: anaphylaxis) Qty: 2 0RF Rx Instructions: do not exceed 3 doses per episode No Action Mirena 20 mcg/24 hours (5 yrs) 52 mg intrauterine device intrauterine oxycodone-acetaminophen 5-325 mg tablet 1 tab PO Q6H PRN (Reason: pain) Qty: 14 0RF Referrals: Fiona Doe ARNP [Primary Care Provider] - Visit Report Forms: Patient Portal/API
[2021-11-12] MEDS: diazePAM 10 MG/2 ML SYRINGE 2 MG IV (15:08)
[2021-11-12] MEDS: SODIUM CHLORIDE 0.9% 1,000 ML 150 ML IV (15:11)
[2021-11-12] MEDS: methylPREDNISolone 125 MG/2 ML VIAL IV (15:12)
--- NOTE | 2021-11-12 15:13 | PC.NURSE ---
Patient discharged from [facility] yesterday morning, was in normal state of health until 1430, patient complain to that she couldn't breathe and was pointing to her throat. Patient tried using IS and decided to bring her to hospital. Patient took 25mg of oral benadryl. In vehicle patient started shaking. This RN retrieved patient from registration and she was unresponsive to and myself. Patient startled herself awake and started breathing rapidly, unable to speak and was shaking uncontrollably. Patient recently intubated here for airway support for similar symptoms. Provider immediately at bedside, patient given IM Epi per MAY, RT present for respiratory support. Patient able to eventually verbalize one word answers and tachypnea improved from 40+ respirations to 18. [ End ]
[2021-11-12] MEDS: FAMOTIDINE 20 MG/2 ML VIAL IV (15:14)
[2021-11-12] MEDS: diphenhydrAMINE 50 MG/ML VIAL 25 MG IV (15:16)
[2021-11-12 15:17] LABS: Add Manual Diff / Slide Review NO; Basophils Absolute Auto 0 /uL (0-100); Basophils Percent Auto 0.7 % (0-2); Eosinophils Absolute Auto 100 /uL (0-450); Eosinophils Percent Auto 1.1 % (2-4); Hematocrit 39.2 % (36-46); Hemoglobin 13.5 g/dL (12.0-16.0); Lymphocytes Absolute Auto 1300 /uL (1100-4500); Lymphocytes Percent Auto 18.6 % (25-40); Mean Corpuscular HGB Conc 34.5 % (30-36); Mean Corpuscular Hemoglobin 29.1 PG (26-34); Mean Corpuscular Volume 84.4 fL (80-100); Monocytes Absolute Auto 700 /uL (0-900); Monocytes Percent Auto 9.2 % (3-14); Neutrophils Absolute Auto 5000 /uL (1500-7000); Neutrophils Percent Auto 70.4 % (50-75); Platelet Count 274 X10^3/uL (150-400); Red Blood Cell Count 4.64 X10^6/uL (4.0-5.2); Red Cell Distribution Width 13.8 % (11.6-14.8); White Blood Cell Count 7.2 X10^3/uL (4.5-11.0)
[2021-11-12 15:23] LABS: HCO3 ABG 22 mmol/L (22-26); Oxygen Saturation ABG 99 % (95-100); PCO2 ABG 33.4 mmHg (35-45); PO2 ABG 114 mmHg (80-100); TCO2 ABG 23 mmol/L (21-31)
[2021-11-12 15:24] LABS: pH ABG 7.42 (7.35-7.45)
[2021-11-12 15:25] LABS: COVID19 -Nasal RAPID POSITIVE (Negative); Lactate (Lactic Acid) 1.5 mmol/L (0.7-2.1)
[2021-11-12 16:04] LABS: D Dimer 678 ng/ml (<500)
[2021-11-12 16:05] LABS: Alanine Aminotransferase 53 IU/L (<35); Albumin 4.5 g/dL (3.5-5.0); Albumin Globulin Ratio 1.3 (1.0-2.8); Alkaline Phosphatase 59 U/L (38-126); Aspartate Aminotransferase 51 IU/L (14-36); BUN Creatinine Ratio 11.7 (6-22); Bilirubin Total 0.4 mg/dL (0.2-1.3); Blood Urea Nitrogen 7 mg/dL (7-17); Calcium 9.1 mg/dL (8.4-10.2); Carbon Dioxide 22 mmol/L (22-32); Chloride 104 mmol/L (98-107); Creatine Kinase 121 U/L (30-135); Estimated Glomerular Filt Rate > 60 mL/min (>60); Globulin 3.4 g/dL (1.7-4.1); Glucose 148 mg/dL (70-100); HEMOLYSIS < 15 (0-50); Lipase 136 U/L (23-300); Potassium 3.3 mmol/L (3.4-5.1); Sodium 139 mmol/L (137-145); Total Protein 7.9 g/dL (6.3-8.2)
[2021-11-12 16:17] LABS: NT-proBNP (BNP-Adult 18+) 25 pg/mL (<125); Troponin I < 0.012 ng/mL (0.01-0.034)
[2021-11-12 16:20] LABS: CKMB % Relative Index 0.2 % (1.5-5.0); Creatine Kinase MB 0.26 ng/mL (<2.37)
--- NOTE | 2021-11-12 16:34 | DI.CT.S_ITS ---
PROCEDURE: CT ANGIO CHEST PE PROTOCOL INDICATIONS: COVID passing out high dimer TECHNIQUE: After the administration of intravenous contrast, 2 mm thick sections acquired from the pulmonary apices to the posterior costophrenic angles. 3-dimensional maximum intensity projection (MIP) coronal and sagittal reformats were then acquired through the thorax. For radiation dose reduction, the following was used: automated exposure control, adjustment of mA and/or kV according to patient size. COMPARISON: [facility], CR, XR CHEST 1V, 11/12/2021, 15:41. FINDINGS: Image quality: Excellent. Pulmonary arteries: Pulmonary arteries are normal in size, and demonstrate no intraluminal filling defects to suggest central pulmonary embolism. Lungs and pleura: Low lung volumes and mild interstitial prominence can be seen. No pleural effusions or pneumothorax. Central and peripheral airways are patent. Mediastinum: Heart size is normal, without pericardial effusion. No mediastinal or hilar adenopathy. Thoracic aorta is normal in caliber and enhancement. Esophagus is normal in caliber, without hiatal hernia. Bones and chest wall: No suspicious bony lesions. Ribs and thoracic spine appear intact throughout. Thyroid gland demonstrates no significant abnormality. No axillary or supraclavicular adenopathy. Abdomen: An enlarged, diffusely fatty liver can be seen. The visualized portions of the upper abdominal structures are otherwise unremarkable for imaging technique. IMPRESSION: Negative for pulmonary embolism. Generalized mild interstitial prominence can be seen and low lung volumes are seen, which are consistent with the given history of COVID pneumonia. Incidental note is made of: Enlarged, fatty liver. Dictated by: Rohit Wallace M.D. on 11/12/2021 at 16:13 Approved by: Rohit Wallace M.D. on 11/12/2021 at 16:15
[2021-11-13 17:14] LABS: Fractionated Inspired Oxygen 21
== END 2021-11-12 18:02 | disposition home or self-care (01) ==
PROVIDERS: Emergency Provider Emergency Medicine; PCP Internal Medicine
DX: T78.2XXA Anaphylactic shock, unspecified, initial encounter (principal); R06.00 Dyspnea, unspecified; R55 Syncope and collapse; U07.1 COVID-19
CPT/HCPCS: 36415; 36600; 71045; 71275; 80053; 82550; 82553; 82805; 83605; 83690; 83880; 84484; 85025; 85379; 87635; 93005; 93010; 96361; 96372; 96374; 96375; 99285; 99291; C9803; J0171; J1200; J2930; J3360; Q9967

== ENCOUNTER 2021-11-15 03:20 | Emergency (ER) | payer OTHER, SELFPAY ==
[2021-11-08 23:15] VITALS: PULSE 92; RESP 15; O2SAT 100
[2021-11-15] VITALS (11 sets, daily range): BP systolic 120–137; BP diastolic 64–74; PULSE 73–80; RESP 19–25; TEMP 36.8; O2SAT 99–100
--- NOTE | 2021-11-15 03:22 | ED_ITS ---
HPI - SOB/Dyspnea General Chief Complaint: Shortness of Breath/Dyspnea Stated Complaint: trouble breathing Time Seen by Provider: 11/15/21 03:21 Source: patient and EMS Mode of arrival: Ambulatory Limitations: no limitations History of Present Illness HPI Narrative: This is a 36-year-old female with history of anxiety on paroxetine, prior ETOH abuse and recent COVID diagnosis on November 12 who presents for the 3rd time since November 08. Patient states that she awoke about 30 minutes prior to arrival with inspiratory and expiratory stridor. Patient states that it feels tight in her throat. She denies fevers or chills. She feels a little tight and wheezy in her chest. She denies chest pressure or pain. Syncope. Patient denies hoarseness over the last several days. No nausea or vomiting. No syncope. No diarrhea constipation, no urinary symptoms. No rash or skin changes. No itching. Patient was seen by myself on the with left-sided weakness and shaking and was ultimately intubated and transferred for possible focal seizure. She states there did not appear to be any seizure changes at the outside hospital, they thought she may have developed a serotonin syndrome and had her stopped her paroxetine which she has restarted in the interim. Patient was seen on the 12 of November for similar shaking on the 1 side and stridor. She was treated for possible anaphylaxis as well as given Valium this improved her symptoms she was monitored for several hours and discharged home. They had noted that she had been eating chicken and eggs and thought this might be a trigger. Patient was found to be COVID positive at that point. She has been afebrile and she states no symptoms up to this point. Patient has restarted her paroxetine no other daily medications currently. She was not discharged home on any other medications. Patient has been evaluated for pulmonary emboli on the did have some changes consistent with possibly COVID pneumonia on her CT angiography at that time. Patient is accompanied by her . Related Data Home Medications Medication Instructions Recorded Confirmed levonorgestrel 20 mcg/24 hours (7 intrauterine 09/12/12/11/20 yrs) 52 mg intrauterine device (Mirena) Previous Rx's Medication Instructions Recorded oxycodone-acetaminophen 5 mg-325 1 tab PO Q6H PRN pain #14 tabs 08/30/21 mg tablet epinephrine 0.3 mg/0.3 mL 0.3 mg (0.3 mL) IM Q5-15M PRN 11/12/21 injection, auto-injector anaphylaxis #2 ea Allergies Allergy/AdvReac Type Severity Reaction Status Date / Time latex [LATEX] Allergy Mild MILD RASH Verified 11/12/21 15:02 Review of Systems Review of Systems ROS Unobtainable: All systems reviewed & are unremarkable except as noted in HPI and below Patient History Medical History Chicken pox Depression (~2005) Headache Kidney stones (~2010) Migraines (~2008) Painful menstrual periods Surgical History Anesthesia History of tonsillectomy (~2001) Status post delivery (10/23/11) Status post delivery (07/14/13) Family History Grandfather No problems noted. Social History Smoking Status: Never smoker Smoking Status: Never smoker alcohol intake frequency: 0-2 drinks per day Substance Use Type: does not use Exam Narrative Exam Narrative: GEN: well nourished, well appearing female, alert and oriented x 3, patient appears to be in moderate distress. HEENT: Atraumatic, pupils are equal round reactive to light, extraocular movements are intact, nares are clear. Throat is clear without any exudates, erythema, tonsillar enlargement or uvular deviation, no swelling of the lips, tongue or airway is appreciated, patient has inspiratory and expiratory stridor but while asking questions she is able to stop and answer them without stridor. She does sound very slightly worse but not muffled. No accessory muscle use. HEART: Regular rate and rhythm without murmur, clicks, rubs. LUNGS:Lungs clear to auscultation, no wheezes, rales, crackles, chest moves symmetrically, no tachypnea or accessory muscle use. ABD:bowel sounds normal, soft, non-tender, no guarding, rebound, rigidity, no masses noted, no hepatosplenomegaly MSCL: Non-tender, no muscle atrophy, muscles strength 5/5 upper and lower extremities, full range of motion, normal gait NEURO:CN 2-12 intact, sensation normal SKIN: No rash, erythema or other skin changes noted. Initial Vital Signs Initial Vital Signs: Vital Signs Temperature 98.3 F 11/15/21 03:30 Respiratory Rate 25 H 11/15/21 03:30 Blood Pressure 135/72 11/15/21 03:30 Pulse Oximetry 99 11/15/21 03:30 Oxygen Delivery Method 11/15/21 03:30 Course Orders Ordered: Discontinued Medications Albuterol (Albuterol Hfa Prepack) 1 box MISC SEEINSTR ONE Stop: 11/15/21 06:27 Diphenhydramine HCl (Diphenhydramine 50 Mg/Ml Vial) 50 mg IV NOW ONE Stop: 11/15/21 03:30 Last Admin: 11/15/21 03:39 Dose: 50 mg Documented By: RICKY Epinephrine (Racepinephrine 0.5 Ml Neb) 0.5 ml INH NOW ONE Stop: 11/15/21 03:34 Last Admin: 11/15/21 03:34 Dose: 0.5 ml Documented By: KONSTANTIN Epinephrine HCl (Epinephrine 1 Mg/Ml) 0.3 mg IM NOW ONE Stop: 11/15/21 03:30 Last Admin: 11/15/21 03:47 Dose: 0.3 mg Documented By: JUAN R Famotidine (Famotidine 20 Mg/2 Ml Vial) 20 mg IV NOW NATE Last Admin: 11/15/21 03:43 Dose: 20 mg Documented By: RICKY Sodium Chloride (Normal Saline 0.9%) 1,000 mls @ 1,000 mls/hr IV BOLUS ONE Stop: 11/15/21 04:28 Last Infusion: 11/15/21 07:18 Dose: 0 mls/hr Documented By: Admin: 11/15/21 03:39 Dose: 1,000 mls/hr Documented By: RICKY Methylprednisolone (Methylprednisolone 125 Mg/2 Ml Vial) 125 mg IV NOW ONE Stop: 11/15/21 03:30 Last Admin: 11/15/21 03:39 Dose: 125 mg Documented By: RICKY Reevaluation(s) Reevaluation #1: patient continues to be asymptomatic. Reviewed todays findings. Time: 05:30 Vital Signs Vital signs: Vital Signs - 8 hr 11/15/21 03:35 11/15/21 03:30 11/15/21 04:17 Temperature 98.3 F Pulse Rate 73 Respiratory Rate 25 H 21 Blood Pressure 135/72 122/74 Pulse Oximetry 100 99 100 Oxygen Delivery Method Room Air Room Air Room Air Oxygen Flow Rate 0 MDM - SOB/Dyspnea Lab Data Result diagrams: 11/15/21 03:40 11/15/21 03:40 Labs: Lab Results 11/15/21 11/15/21 11/15/21 Range/Units 03:40 03:40 03:40 WBC 4.4 L (4.5-11.0) X10^3/uL RBC 4.36 (4.0-5.2) X10^6/uL Hgb 12.7 (12.0-16.0) g/dL Hct 36.7 (36-46) % MCV 84.3 (80-100) fL MCH 29.2 (26-34) PG MCHC 34.6 (30-36) % RDW 13.8 (11.6-14.8) % Plt Count 278 (150-400) X10^3/uL Neut % (Auto) 38.5 L (50-75) % Lymph % (Auto) 46.6 H (25-40) % [place] % (Auto) 11.0 (3-14) % Eos % (Auto) 2.8 (2-4) % Baso % (Auto) 1.1 (0-2) % Neut # (Auto) 1700 (0664-3626) /uL Lymph # (Auto) 2000 (5137-0969) /uL [place] # (Auto) 500 (0-900) /uL Eos # (Auto) 100 (0-450) /uL Baso # (Auto) 0 (0-100) /uL Sodium 139 (137-145) mmol/L Potassium 3.7 (3.4-5.1) mmol/L Chloride 104 (98-107) mmol/L Carbon Dioxide 25 (22-32) mmol/L BUN 10 (7-17) mg/dL Creatinine 0.56 (0.52-1.04) mg/dL Estimated GFR > 60 (>60) mL/min BUN/Creatinine Ratio 17.9 (6-22) Glucose 110 H (70-100) mg/dL Calcium 9.1 (8.4-10.2) mg/dL Total Bilirubin 0.1 L (0.2-1.3) mg/dL AST 32 (14-36) IU/L ALT 42 H (<35) IU/L Alkaline Phosphatase 45 (38-126) U/L Total Creatine Kinase 63 (30-135) U/L CK-MB (CK-2) TNP CK-MB (CK-2) Rel Index TNP Troponin I < 0.012 (0.01-0.034) ng/mL Total Protein 7.4 (6.3-8.2) g/dL Albumin 4.3 (3.5-5.0) g/dL Globulin 3.1 (1.7-4.1) g/dL Albumin/Globulin Ratio 1.4 (1.0-2.8) Lipase 209 D (23-300) U/L Complement C4 22 (12-38) mg/dL SARS-CoV-2 (PCR) (Negative) 11/15/21 Range/Units 04:00 WBC (4.5-11.0) X10^3/uL RBC (4.0-5.2) X10^6/uL Hgb (12.0-16.0) g/dL Hct (36-46) % MCV (80-100) fL MCH (26-34) PG MCHC (30-36) % RDW (11.6-14.8) % Plt Count (150-400) X10^3/uL Neut % (Auto) (50-75) % Lymph % (Auto) (25-40) % [place] % (Auto) (3-14) % Eos % (Auto) (2-4) % Baso % (Auto) (0-2) % Neut # (Auto) (9124-6491) /uL Lymph # (Auto) (0289-2875) /uL [place] # (Auto) (0-900) /uL Eos # (Auto) (0-450) /uL Baso # (Auto) (0-100) /uL Sodium (137-145) mmol/L Potassium (3.4-5.1) mmol/L Chloride (98-107) mmol/L Carbon Dioxide (22-32) mmol/L BUN (7-17) mg/dL Creatinine (0.52-1.04) mg/dL Estimated GFR (>60) mL/min BUN/Creatinine Ratio (6-22) Glucose (70-100) mg/dL Calcium (8.4-10.2) mg/dL Total Bilirubin (0.2-1.3) mg/dL AST (14-36) IU/L ALT (<35) IU/L Alkaline Phosphatase (38-126) U/L Total Creatine Kinase (30-135) U/L CK-MB (CK-2) CK-MB (CK-2) Rel Index Troponin I (0.01-0.034) ng/mL Total Protein (6.3-8.2) g/dL Albumin (3.5-5.0) g/dL Globulin (1.7-4.1) g/dL Albumin/Globulin Ratio (1.0-2.8) Lipase (23-300) U/L Complement C4 (12-38) mg/dL SARS-CoV-2 (PCR) Positive H (Negative) Point of Care Testing Test Results Negative Urine Dip Bedside Urine Glucose Negative Bedside Urine Bilirubin - Negative Bedside Urine Ketone - Negative Urine Specific [place] 1.010 Bedside Urine Occult Blood - Negative Bedside Urine pH 6.5 Bedside Urine Protein - Negative Bedside Urine Urobilinogen - Negative Bedside Urine Nitrite - Negative Bedside Urine Leukocytes - Negative Esterase Imaging Data soft tissue neck xray: Radiologist's Impression: Normal soft tissue neck x-ray. Chest x-ray: Radiologist's Impression: Multifocal bilateral pulmonary infiltrates. ECG Data Attestation: I personally reviewed and interpreted this ECG as follows: Prior ECG tracings: available for review Interpretation: Sinus rhythm rate of 92 MS 114 QRS 86 QTC of 469. No acute ST changes appreciated. Patient has prior from 11/12/2021 which appears similar. [facility] Narrative Medical decision making narrative: 36-year-old female with inspiratory and expiratory stridor that does stop when speaking patient did receive dose of racemic epi and epinephrine IM. She was given Solu-Medrol IV and Benadryl but crystallized in the line. Patient's symptoms started within 10-20 seconds of the injection. Patient family states she has had chicken an ache exposures there was discussion that this may be a cause but she does not have any other anaphylactic changes and on intubation last week had a normal airway. This seems less likely but her primary care has put in referral for allergy testing which I think is appropriate. Discussed with family she is COVID positive this could be exacerbating or causing some of her symptoms, we discussed possibility such as vocal cord dysfunction, reflux and other potential causes. 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 He feels there may be some correlation with her stress levels and symptoms. Patient continues to be asymptomatic during stay. Discussed plan. Patient does have covid pneumonia on Chest xray, patient may be having some reactive airway issues that may be causing some of her symptoms as well. Discussed albuterol inhaler for home that she can try. Return precautions. Patient has referral primary care already in place for allergy testing. Discussed potential course of workup and that C4 level is pending. We also discussed that stress and anxiety may be a portion of this patient states she is quite stressed recently. Discharge Plan Departure Patient Disposition: Home Clinical Impression: 2019 novel coronavirus-infected pneumonia (NCIP), Intermittent stridor Activity Restrictions/Additional Instructions: You have one lab that is pending and is a send out and takes several days to a week to result. Follow up with your primary care for results. I would recommend to keep track of any potential triggers of your symptoms. This may be related to your covid infection but also foods, stressors, tobacco/smoke or other possible triggers. You may continue your current home medications. You can try and inhaler for symptoms. You may use 1-2 puffs every 4 hours. If you are having some reactive airway response with your current COVID infection this may be helpful. Please return for new or worsening symptoms, if you feel you are unable to breathe, your airway is closing, passing out, persistent vomiting or other new or concerning symptoms. Prescriptions: No Action Mirena 20 mcg/24 hours (5 yrs) 52 mg intrauterine device intrauterine oxycodone-acetaminophen 5-325 mg tablet 1 tab PO Q6H PRN (Reason: pain) Qty: 14 0RF epinephrine 0.3 mg/0.3 mL auto-injector 0.3 mg IM Q5-15M PRN (Reason: anaphylaxis) Qty: 2 0RF Rx Instructions: do not exceed 3 doses per episode Referrals: Fiona Doe ARNP [Primary Care Provider] - Visit Report Forms: Patient Portal/API
--- NOTE | 2021-11-15 03:32 | DI.RAD.S_ITS ---
PROCEDURE: XR SOFT TISSUE NECK INDICATIONS: stridor, recent covid diagnosis, recurrent episodic. TECHNIQUE: 2 views of the neck were acquired. COMPARISON: None. FINDINGS: Airway: The airway appears patent. Soft tissues: Prevertebral soft tissues are normal in thickness. The epiglottis and aryepiglottic folds appear normal. No soft tissue gas. Bones: No suspicious bony lesions. Visualized cervical spine is normally aligned. IMPRESSION: No abnormal neck soft tissue swelling. Airway is patent. Dictated by: Shivam Hawkins M.D. on 11/15/2021 at 8:32 Approved by: Shivam Hawkins M.D. on 11/15/2021 at 8:32
--- NOTE | 2021-11-15 03:32 | DI.RAD.S_ITS ---
PROCEDURE: XR CHEST 1V INDICATIONS: stridor, recent covid diagnosis, recurrent episodic. TECHNIQUE: One view of the chest was acquired. COMPARISON: [facility], CR, XR CHEST 1V, 11/12/2021, 15:41. FINDINGS: Surgical changes and devices: None. Lungs and pleura: Subtle opacities are seen scattered in bilateral mid to lower lung kerns concerning for bilateral patchy infiltrates. No pleural effusions or pneumothorax. Mediastinum: Mediastinal contours appear normal. Heart size is normal. Bones and chest wall: No suspicious bony lesions. Overlying soft tissues appear unremarkable. IMPRESSION: Finding is suggestive of bilateral perihilar and infrahilar patchy infiltrates. No pleural effusion or pneumothorax. No discrepancies. Dictated by: Shivam Hawkins M.D. on 11/15/2021 at 8:31 Approved by: Shivam Hawkins M.D. on 11/15/2021 at 8:32
[2021-11-15] MEDS: RACEPINEPHRINE 0.5 ML NEB INH (03:34)
[2021-11-15] MEDS: diphenhydrAMINE 50 MG/ML VIAL IV (03:39)
[2021-11-15] MEDS: methylPREDNISolone 125 MG/2 ML VIAL IV (03:39)
[2021-11-15] MEDS: SODIUM CHLORIDE 0.9% 1,000 ML 1000 ML IV (03:39)
[2021-11-15] MEDS: FAMOTIDINE 20 MG/2 ML VIAL IV (03:43)
[2021-11-15] MEDS: EPINEPHrine 1 MG/ML 0.3 MG IM (03:47)
--- NOTE | 2021-11-15 03:57 | PC.NURSE ---
Pt arrives with stridorous respirations easily audible, but was able to pause and speak in occasional full sentences prior to meds being given. When speaking, pt voice not raspy or garbled, but remained clear. Provider witness to this.
[2021-11-15 03:59] LABS: Add Manual Diff / Slide Review NO; Basophils Absolute Auto 0 /uL (0-100); Basophils Percent Auto 1.1 % (0-2); Eosinophils Absolute Auto 100 /uL (0-450); Eosinophils Percent Auto 2.8 % (2-4); Hematocrit 36.7 % (36-46); Hemoglobin 12.7 g/dL (12.0-16.0); Lymphocytes Absolute Auto 2000 /uL (1100-4500); Lymphocytes Percent Auto 46.6 % (25-40); Mean Corpuscular HGB Conc 34.6 % (30-36); Mean Corpuscular Hemoglobin 29.2 PG (26-34); Mean Corpuscular Volume 84.3 fL (80-100); Monocytes Absolute Auto 500 /uL (0-900); Neutrophils Absolute Auto 1700 /uL (1500-7000); Neutrophils Percent Auto 38.5 % (50-75); Platelet Count 278 X10^3/uL (150-400); Red Blood Cell Count 4.36 X10^6/uL (4.0-5.2); Red Cell Distribution Width 13.8 % (11.6-14.8); White Blood Cell Count 4.4 X10^3/uL (4.5-11.0)
[2021-11-15 04:05] LABS: Alanine Aminotransferase 42 IU/L (<35); Albumin 4.3 g/dL (3.5-5.0); Albumin Globulin Ratio 1.4 (1.0-2.8); Alkaline Phosphatase 45 U/L (38-126); Aspartate Aminotransferase 32 IU/L (14-36); BUN Creatinine Ratio 17.9 (6-22); Bilirubin Total 0.1 mg/dL (0.2-1.3); Blood Urea Nitrogen 10 mg/dL (7-17); Calcium 9.1 mg/dL (8.4-10.2); Carbon Dioxide 25 mmol/L (22-32); Chloride 104 mmol/L (98-107); Creatine Kinase 63 U/L (30-135); Estimated Glomerular Filt Rate > 60 mL/min (>60); Globulin 3.1 g/dL (1.7-4.1); Glucose 110 mg/dL (70-100); HEMOLYSIS 18 (0-50); Lipase 209 U/L (23-300); Potassium 3.7 mmol/L (3.4-5.1); Sodium 139 mmol/L (137-145); Total Protein 7.4 g/dL (6.3-8.2)
[2021-11-15 04:16] LABS: Troponin I < 0.012 ng/mL (0.01-0.034)
[2021-11-15 04:28] LABS: COVID19 -Nasal RAPID POSITIVE (Negative)
== END 2021-11-15 07:19 | disposition home or self-care (01) ==
PROVIDERS: Emergency Provider Emergency Medicine; PCP Internal Medicine
DX: U07.1 COVID-19 (principal); R06.1 Stridor
CPT/HCPCS: 36415; 70360; 71045; 80053; 81003; 81025; 82550; 83690; 84484; 85025; 86160; 87635; 93005; 93010; 94640; 96361; 96372; 96374; 96375; 99284; C9803; J0171; J1200; J2930

== ENCOUNTER → 2021-11-22 11:22 | Outpatient (CLI) | payer OTHER, SELFPAY ==
[2021-11-08 23:15] VITALS: PULSE 92; RESP 15; O2SAT 100
--- NOTE | 2021-11-22 | DI.RAD.S_ITS ---
PROCEDURE: XR CHEST 2V INDICATIONS: Personal history of COVID-19, shortness of breath TECHNIQUE: 2 views of the chest were acquired. COMPARISON: None. FINDINGS: Surgical changes and devices: None. Lungs and pleura: Lungs are clear. No pleural effusions or pneumothorax. Mediastinum: Mediastinal contours are normal. Heart size is normal. Bones and chest wall: No suspicious bony abnormalities. Soft tissues appear unremarkable. IMPRESSION: No acute cardiopulmonary process demonstrated radiographically. Dictated by: Marquez Berumen M.D. on 11/22/2021 at 14:35 Approved by: Marquez Berumen M.D. on 11/22/2021 at 14:36
== END ==
PROVIDERS: PCP Internal Medicine; Referring Provider Internal Medicine; Visit Provider Internal Medicine
DX: R06.02 Shortness of breath (principal); Z86.16 Personal history of COVID-19
CPT/HCPCS: 71046

== ENCOUNTER → 2022-01-04 17:14 | Outpatient (CLI) | payer OTHER, SELFPAY ==
[2021-11-08 23:15] VITALS: PULSE 92; RESP 15; O2SAT 100
== END ==
PROVIDERS: PCP Internal Medicine; Visit Provider Nurse Practitioner Family
DX: R30.0 Dysuria (principal)
CPT/HCPCS: 87086

== ENCOUNTER 2022-01-09 15:50 | Emergency (ER) | payer OTHER, SELFPAY ==
[2021-11-08 23:15] VITALS: PULSE 92; RESP 15; O2SAT 100
== END 2022-01-09 17:10 | disposition left against medical advice (07) ==
PROVIDERS: Emergency Provider Emergency Medicine; PCP Internal Medicine

== ENCOUNTER 2022-01-09 18:42 | Emergency (ER) | payer OTHER, SELFPAY ==
[2021-11-08 23:15] VITALS: PULSE 92; RESP 15; O2SAT 100
[2022-01-09 18:48] VITALS: BP 131/83; PULSE 89; RESP 17; TEMP 36.6; O2SAT 100; BMI 34.0
[2022-01-09 23:13] VITALS: BP 134/82; PULSE 88; O2SAT 100
--- NOTE | 2022-01-09 23:25 | DI.CT.S_ITS ---
PROCEDURE: CT HEAD/BRAIN WO CON INDICATIONS: headache pass out vomiting TECHNIQUE: Noncontrast 4.5 mm thick angled axial sections acquired from the foramen magnum to the vertex, with coronal and sagittal reformats. For radiation dose reduction, the following was used: automated exposure control, adjustment of mA and/or kV according to patient size. COMPARISON: [facility], CT, CT STROKE, 11/08/2021, 17:45. FINDINGS: Image quality: Excellent. CSF spaces: Basal cisterns are patent. No extra-axial fluid collections. Ventricles are normal in size and shape. Brain: No intracranial hemorrhage, mass, or mass effect. Thakur-white matter interface appears preserved. Skull and face: Calvarium and visualized facial bones are intact, without suspicious lesions. Sinuses: Visualized sinuses and mastoids are clear. IMPRESSION: 1. No acute intracranial abnormality. Dictated by: Gordo Broussard M.D. on 01/09/2022 at 23:43 Approved by: Gordo Broussard M.D. on 01/09/2022 at 23:44
[2022-01-09 23:30] VITALS: BP 118/64; PULSE 77; O2SAT 100
[2022-01-09 23:36] VITALS: BP 129/69; PULSE 83; O2SAT 100
--- NOTE | 2022-01-09 23:51 | ED_ITS ---
HPI - Head Injury General Chief complaint: Head Injury Stated complaint: glf HIT HEAD Time Seen by Provider: 01/09/22 23:25 Source: patient and family Mode of arrival: Ambulatory History of Present Illness HPI Narrative: Patient is a 36-year-old female with history of anxiety on paroxetine, prior EtOH abuse, anaphylaxis presenting today with a syncopal episode. She states is that she cut herself with a supervisor paper machine and passed out. She hit the back of her head there was a brief loss of consciousness. She was then nauseous and dizzy afterwards. His she is not on blood thinners or anti-platelet medications. She is having quite a severe headache now but the nausea has improved. She has no numbness tingling or weakness her other symptoms. However she has had neurologic symptoms possible seizures this year she is being looked at neurologically. Related Data Home Medications Medication Instructions Recorded Confirmed cetirizine 10 mg tablet (Zyrtec) 10 mg PO DAILY PRN 01/04/22 01/09/22 fluoxetine 10 mg capsule 10 mg PO DAILY 01/04/22 01/09/22 Previous Rx's Medication Instructions Recorded epinephrine 0.3 mg/0.3 mL 0.3 mg (0.3 mL) IM Q5-15M PRN 11/12/21 injection, auto-injector anaphylaxis #2 ea Allergies Allergy/AdvReac Type Severity Reaction Status Date / Time latex [LATEX] Allergy Mild MILD RASH Verified 01/09/22 18:53 Review of Systems Review of Systems Narrative: GENERAL: Denies chills, fatigue, malaise, fever, sweats, travel HEENT: Denies sinus pain, ear pain, sore throat, difficulty swallowing, neck pain RESPIRATORY: Denies dyspnea, cough, wheezing, hemoptysis, sputum. CARDIOVASCULAR: Denies chest pain, palpitations, orthopnea, edema GASTROINTESTINAL: Denies nausea, vomiting, abdominal pain, diarrhea, constipation, melena. : Denies dysuria, frequency, incontinence, hematuria, urinary retention, flank pain. MUSCULOSKELETAL: Denies weakness, joint pain, or bony pain SKIN: No rash, no erythema, no pruritus NEUROLOGIC: See HPI PSYCHIATRIC: No concerning psychosocial issues. 12 point review of systems is negative except for those stated above and HPI Patient History Medical History Chicken pox Depression (~2005) Headache Kidney stones (~2010) Migraines (~2008) Painful menstrual periods Surgical History Anesthesia History of tonsillectomy (~2001) Status post delivery (10/23/11) Status post delivery (07/14/13) Family History Grandfather No problems noted. Social History Smoking Status: Never smoker Smoking Status: Never smoker alcohol intake frequency: other Substance Use Type: does not use Exam Initial Vital Signs Initial Vital Signs: Vital Signs Temperature 98 F 01/09/22 18:48 Pulse Rate 89 01/09/22 18:48 Respiratory Rate 17 01/09/22 18:48 Blood Pressure 131/83 01/09/22 18:48 Pulse Oximetry 100 01/09/22 18:48 Oxygen Delivery Method 01/09/22 18:48 GENERAL: Alert pleasant 36-year-old female HEENT: Head atraumatic,EOMI, pupils reactive, face symmetric, moist mucous membranes CARDIOVASCULAR: Regular rate and rhythm without murmurs, rubs or gallops. RESPIRATORY: Breath sounds equal bilaterally, no wheezes rales or rhonchi. ABDOMEN: Soft, nontender. Normoactive bowel sounds all 4 quadrants. No guarding or rebound. EXTREMITIES: Normal range of motion, no clubbing or edema. Neurovascularly intact NEUROLOGICAL: Alert and oriented x4.Normal gait and speech. Cranial nerves II through XII grossly intact. [employer] strength equal bilaterally ambulatory in ED is no focal deficit SKIN: Right thumb superficial laceration Band-Aid in place Course Orders Ordered: ED Orders 01/09/22 23:25 CT head/brain wo con Stat Vital Signs Vital signs: Vital Signs - 8 hr 01/09/22 23:13 01/09/22 23:13 01/09/22 23:30 Pulse Rate 88 Blood Pressure 134/82 118/64 Pulse Oximetry 100 01/09/22 23:30 01/09/22 23:36 01/09/22 23:36 Pulse Rate 77 83 Blood Pressure 129/69 Pulse Oximetry 100 100 MDM - Head Injury Imaging Data CT scan - head: Radiologist's Impression: CT Scan Report Signed Patient: Blas Marte MR#: [id number] : 1985 Acct:[id number] Age/Sex: 36 / F Date of Service: 01/09/22 Loc: ED Accession Number: [id number] ?? Procedure: CT head/brain wo con Ordering Provider: Tonya Escobedo D.O. PROCEDURE:? CT HEAD/BRAIN WO CON ? INDICATIONS:? headache pass out vomiting ? TECHNIQUE:? Noncontrast 4.5 mm thick angled axial sections acquired from the foramen magnum to the vertex, with coronal and sagittal reformats.? For radiation dose reduction, the following was used:? automated exposure control, adjustment of mA and/or kV according to patient size.? ? COMPARISON:? [facility], CT, CT STROKE, 11/08/2021, 17:45. ? FINDINGS:? Image quality:? Excellent.? ? CSF spaces:? Basal cisterns are patent.? No extra-axial fluid collections.? Ventricles are normal in size and shape.? ? Brain:? No intracranial hemorrhage, mass, or mass effect.? Thakur-white matter interface appears preserved.? ? Skull and face:? Calvarium and visualized facial bones are intact, without suspicious lesions.? ? Sinuses:? Visualized sinuses and mastoids are clear.? ? IMPRESSION:? ? 1. No acute intracranial abnormality. ? ? Dictated by: Gordo Broussard M.D. on 01/09/2022 at 23:43 ? ? MDM Narrative Medical decision making narrative: Patient had vasovagal reaction to the superficial laceration and seeing blood. She did fall and hit her head she is not on antiplatelet or anticoagulation however she has had his headache a 10 nausea. She is also being evaluated neurologically. At this time no focal deficits she overall appears well she has not had any other symptoms or chest pain his shortness of breath. She has negative head CT. At this is unlikely to be a cardiac or neurologic event causing syncope she had a very obvious temple of the laceration blood and a syncopal episode. She overall appears very well in the ED at this time there is certainly no need for any further workup Discharge Plan Departure Patient Disposition: Home Clinical Impression: Syncope, vasovagal Instructions: DI for Syncope in Adults (Fainting) Activity Restrictions/Additional Instructions: *You have been diagnosed with syncopal episode *What to do: At this time he fainted at the site of blood which is very common. Head CT is negative. *Continue to take medications as directed *Follow up with your primary care provider in 2-3 days or call [phone] *Return to ER if you should have persistent vomiting worsening headache numbness tingling weakness seizure activity or any new, worsening or concerning symptoms Prescriptions: No Action fluoxetine 10 mg capsule 10 mg PO DAILY cetirizine [Zyrtec] 10 mg tablet 10 mg PO DAILY PRN epinephrine 0.3 mg/0.3 mL auto-injector 0.3 mg IM Q5-15M PRN (Reason: anaphylaxis) Qty: 2 0RF Rx Instructions: do not exceed 3 doses per episode Referrals: Fiona Doe ARNP [Primary Care Provider] - Visit Report Forms: Patient Portal/API
== END 2022-01-09 23:59 | disposition home or self-care (01) ==
PROVIDERS: Emergency Provider Emergency Medicine; PCP Internal Medicine
DX: R55 Syncope and collapse (principal); S09.90XA Unspecified injury of head, initial encounter; S01.01XA Laceration without foreign body of scalp, initial encounter; R51.9 Headache, unspecified; W18.30XA Fall on same level, unspecified, initial encounter
CPT/HCPCS: 70450; 99283

== ENCOUNTER → 2022-02-01 11:31 | Outpatient (CLI) | payer OTHER, SELFPAY ==
[2021-11-08 23:15] VITALS: PULSE 92; RESP 15; O2SAT 100
[2022-02-01 13:05] LABS: Prolactin 9.6 ng/mL (3.0-18.6)
== END ==
PROVIDERS: PCP Internal Medicine; Referring Provider Psychiatry & Neurology Neurology; Visit Provider Psychiatry & Neurology Neurology
DX: E22.1 Hyperprolactinemia (principal)
CPT/HCPCS: 36415; 84146

== ENCOUNTER 2022-05-02 17:42 | Emergency (ER) | payer OTHER, SELFPAY ==
[2021-11-08 23:15] VITALS: PULSE 92; RESP 15; O2SAT 100
[2022-05-02] VITALS (78 sets, daily range): BP systolic 97–158; BP diastolic 51–119; PULSE 79–159; RESP 12–29; TEMP 36.7; O2SAT 93–100
[2022-05-02] MEDS: diphenhydrAMINE 50 MG/ML VIAL 25 MG IV (18:06)
[2022-05-02] MEDS: LORazepam 2 MG/ML INJ IV (18:06)
[2022-05-02] MEDS: methylPREDNISolone 125 MG/2 ML VIAL IV (18:06)
[2022-05-02] MEDS: SODIUM CHLORIDE 0.9% 1,000 ML 125 ML IV (18:08)
[2022-05-02] MEDS: EPINEPHrine 1 MG/ML 0.5 MG IM (18:11)
[2022-05-02] MEDS: ONDANSETRON 4 MG/2 ML INJ IV (18:13)
--- NOTE | 2022-05-02 18:21 | ED.ALLEREA ---
HPI - Allergic Reaction General Chief complaint: Allergic Reaction Stated complaint: seizures, nerve damage Time Seen by Provider: 05/02/22 17:53 Source: patient and family Mode of arrival: Wheelchair History of Present Illness HPI narrative: 37-year-old female nonsmoker with history of alcohol abuse (sober x1 year), prior seizures, anxiety, depression, and kidney stones presents with a chief complaint of a fullness in her throat and a choking type sensation and concern for possible allergic reaction. She denies any runny nose, difficulty breathing, rash. She is had no swelling of her tongue, lips, face. She denies any nausea, vomiting or diarrhea. She denies any new medications or exposures to new foods, pets, lotion or soap. Due to possible allergic reaction she was given typical therapies soon after arrival including epinephrine and started vomiting soon thereafter. She has become more allert and aware and states her left arm and leg feel weird. She denies any trauma or injury. She denies any illicit drug use. Related Data Home Medications Medication Instructions Recorded Confirmed cetirizine 10 mg tablet (Zyrtec) 10 mg PO DAILY PRN 01/04/22 01/09/22 fluoxetine 10 mg capsule 10 mg PO DAILY 01/04/22 01/09/22 Previous Rx's Medication Instructions Recorded epinephrine 0.3 mg/0.3 mL 0.3 mg (0.3 mL) IM Q5-15M PRN 11/12/21 injection, auto-injector anaphylaxis #2 ea epinephrine 0.3 mg/0.3 mL 0.3 mg (0.3 mL) IM Q5-15M PRN 05/03/22 injection, auto-injector (EpiPen anaphylaxis #2 ea 2-Lj) famotidine 20 mg tablet (Pepcid) 20 mg PO DAILY #7 tabs 05/03/22 ondansetron 4 mg disintegrating 4 mg PO TID-QID PRN nausea and 05/03/22 tablet vomiting #10 tabs prednisone 20 mg tablet 20 mg PO DAILY #5 tabs 05/03/22 Allergies Allergy/AdvReac Type Severity Reaction Status Date / Time latex [LATEX] Allergy Mild MILD RASH Verified 01/09/22 18:53 Review of Systems Review of Systems Narrative: GENERAL: See HPI HEENT: See HPI RESPIRATORY: Denies dyspnea, cough, wheezing, hemoptysis, sputum. CARDIOVASCULAR: Denies chest pain, palpitations, orthopnea, edema, GASTROINTESTINAL: See HPI : Denies dysuria, frequency, incontinence, hematuria, urinary retention. MUSCULOSKELETAL: denies weakness, joint pain, or bony pain SKIN: Denies rash, skin lesions, or other NEUROLOGIC: See HPI PSYCHIATRIC: No concerning psychosocial issues. 12 point review of systems is negative except for those stated above Patient History Medical History Chicken pox Depression (~2005) Headache Kidney stones (~2010) Migraines (~2008) Painful menstrual periods Surgical History Anesthesia History of tonsillectomy (~2001) Status post delivery (10/23/11) Status post delivery (07/14/13) Family History Grandfather No problems noted. Social History Smoking Status: Never smoker Smoking Status: Never smoker alcohol intake frequency: other Substance Use Type: does not use Exam Narrative Exam Narrative: GENERAL: [37] year old patient appears stated age. Well-developed patient, in mild distress. Anxious HEAD: Atraumatic. Normocephalic. EYES: Pupils equal round and reactive. Extraocular motions intact. No scleral icterus. No injection or drainage. ENT: Nose without bleeding, purulent drainage. Throat without erythema, tonsillar hypertrophy or exudate. Airway patent. NECK: Trachea midline. Non tender CARDIOVASCULAR: Regular rate and rhythm without murmurs, gallops, or rubs. RESPIRATORY: Clear to auscultation. Breath sounds equal bilaterally. No wheezes, rales, or rhonchi. GASTROINTESTINAL: Abdomen soft, non-tender, nondistended. EXTREMITIES: No edema or joint tenderness. BACK: Nontender without deformity or crepitance. No flank tenderness. NEURO: AOx3. SKIN: No rash or erythema of visible areas Initial Vital Signs Initial Vital Signs: Vital Signs Temperature 98.1 F 05/02/22 17:42 Pulse Rate 155 H 05/02/22 17:42 Respiratory Rate 26 H 05/02/22 17:42 Blood Pressure 158/107 H 05/02/22 17:42 Pulse Oximetry 98 05/02/22 17:42 Oxygen Delivery Method 05/02/22 17:42 Scores NIH Stroke Scale Level of Conciousness: Alert, keenly responsive Ask month/age: Answers both questions correctly. Open/close eyes, close hand: Performs both tasks correctly Best gaze horizontal: Normal Visual kerns: No visual loss Facial palsy: Normal symetrical movement Left arm drift: No drift for full 10 sec Right arm drift: No drift for full 10 sec Left leg drift: No drift for full 5 sec Right leg drift: No drift for full 5 sec Limb ataxia: Absent Sensory on face/arms/legs: Normal, no sensory loss Best language: No aphasia, normal Dysarthria: Normal Extinction or inattention: No abnormality Total NIH Stroke scale score: 0 Course Orders Ordered: ED Orders 05/02/22 18:00 Acetaminophen Stat Complete Blood Count AUTO DIFF Stat Comprehensive Metabolic Panel Stat Ethanol (ETOH) Stat Lactate (Lactic Acid) Stat Lipase Stat Prolactin Stat Salicylate Stat TSH [Thyroid Stimulating Hormone] Stat 05/02/22 20:48 Prolactin Stat Tryptase Stat Discontinued Medications Diphenhydramine HCl (Diphenhydramine 50 Mg/Ml Vial) 25 mg IV NOW ONE Stop: 05/02/22 17:57 Last Admin: 05/02/22 18:06 Dose: 25 mg Documented By: RB Epinephrine HCl (Epinephrine 1 Mg/Ml) 0.5 mg IM NOW ONE Stop: 05/02/22 17:57 Last Admin: 05/02/22 18:11 Dose: 0.5 mg Documented By: RB Sodium Chloride (Normal Saline 0.9%) 1,000 mls @ 125 mls/hr IV CONT NATE Last Infusion: 05/02/22 21:21 Dose: 0 mls/hr Documented By: Infusion: 05/02/22 20:04 Dose: 999 mls/hr Documented By: [facility] Admin: 05/02/22 18:08 Dose: 125 mls/hr Documented By: RB Lorazepam (Lorazepam 2 Mg/Ml Inj) 2 mg IV NOW ONE Stop: 05/02/22 17:56 Last Admin: 05/02/22 18:06 Dose: 2 mg Documented By: RB Methylprednisolone (Methylprednisolone 125 Mg/2 Ml Vial) 125 mg IV NOW ONE Stop: 05/02/22 17:57 Last Admin: 05/02/22 18:06 Dose: 125 mg Documented By: AKBAR Ondansetron HCl (Ondansetron 4 Mg/2 Ml Inj) 4 mg IV NOW ONE Stop: 05/02/22 18:04 Last Admin: 05/02/22 18:13 Dose: 4 mg Documented By: AKBAR Reevaluation(s) Reevaluation #1: Patient with significant improvement in throat sensation, vomiting stopped, no recurrence of throat fullness or other elements of possible allergic reaction. Vital Signs Vital signs: Vital Signs - 8 hr 05/02/22 18:40 05/02/22 18:41 05/02/22 18:41 Pulse Rate 97 H 100 H Respiratory Rate 25 H 27 H Blood Pressure 104/59 L Pulse Oximetry 98 98 05/02/22 18:45 05/02/22 18:45 05/02/22 18:50 Pulse Rate 96 H Respiratory Rate 23 Blood Pressure 124/55 L 123/57 L Pulse Oximetry 97 05/02/22 18:50 05/02/22 18:55 05/02/22 18:55 Pulse Rate 100 H 95 H Respiratory Rate 17 20 Blood Pressure 111/56 L Pulse Oximetry 05/02/22 19:00 05/02/22 19:00 05/02/22 19:05 Pulse Rate 97 H Respiratory Rate 20 Blood Pressure 110/55 L 111/53 L Pulse Oximetry 98 05/02/22 19:05 05/02/22 19:10 05/02/22 19:11 Pulse Rate 97 H 95 H 96 H Respiratory Rate 23 25 H 24 Blood Pressure Pulse Oximetry 95 97 93 05/02/22 19:11 05/02/22 19:15 05/02/22 19:15 Pulse Rate 93 H Respiratory Rate 19 Blood Pressure 99/58 L 101/58 L Pulse Oximetry 98 05/02/22 19:20 05/02/22 19:20 05/02/22 19:25 Pulse Rate 90 Respiratory Rate 19 Blood Pressure 106/62 107/59 L Pulse Oximetry 98 05/02/22 19:25 05/02/22 19:30 05/02/22 19:30 Pulse Rate 97 H 89 Respiratory Rate 19 17 Blood Pressure 98/57 L Pulse Oximetry 100 97 05/02/22 19:35 05/02/22 19:35 05/02/22 19:40 Pulse Rate 86 Respiratory Rate 16 Blood Pressure 102/56 L 101/59 L Pulse Oximetry 97 05/02/22 19:40 05/02/22 19:45 05/02/22 19:45 Pulse Rate 86 85 Respiratory Rate 17 16 Blood Pressure 105/55 L Pulse Oximetry 97 97 05/02/22 19:50 05/02/22 19:50 05/02/22 19:55 Pulse Rate 85 Respiratory Rate 16 Blood Pressure 105/57 L 100/57 L Pulse Oximetry 97 05/02/22 19:55 05/02/22 20:00 05/02/22 20:00 Pulse Rate 86 86 Respiratory Rate 16 16 Blood Pressure 103/56 L Pulse Oximetry 97 97 05/02/22 20:05 05/02/22 20:05 05/02/22 20:10 Pulse Rate 85 Respiratory Rate 17 Blood Pressure 101/59 L 101/57 L Pulse Oximetry 97 05/02/22 20:10 05/02/22 20:15 05/02/22 20:15 Pulse Rate 81 80 Respiratory Rate 16 Blood Pressure 101/58 L Pulse Oximetry 98 98 05/02/22 20:20 05/02/22 20:20 05/02/22 20:25 Pulse Rate 79 Respiratory Rate 15 Blood Pressure 103/57 L 121/76 Pulse Oximetry 98 05/02/22 20:25 05/02/22 20:30 05/02/22 20:35 Pulse Rate 97 H 87 88 Respiratory Rate 17 21 21 Blood Pressure Pulse Oximetry 100 98 99 05/02/22 20:40 05/02/22 20:45 05/02/22 20:50 Pulse Rate 91 H 91 H 90 Respiratory Rate 23 20 16 Blood Pressure Pulse Oximetry 98 98 98 05/02/22 20:55 05/02/22 21:00 05/02/22 21:05 Pulse Rate 85 81 81 Respiratory Rate 19 14 Blood Pressure Pulse Oximetry 98 98 97 05/02/22 21:10 05/02/22 21:15 05/02/22 21:20 Pulse Rate 80 80 82 Respiratory Rate 16 19 17 Blood Pressure Pulse Oximetry 97 97 97 05/02/22 21:25 05/02/22 21:30 05/02/22 21:35 Pulse Rate 80 80 82 Respiratory Rate 18 16 18 Blood Pressure Pulse Oximetry 97 97 97 05/02/22 21:40 05/02/22 21:45 05/02/22 21:50 Pulse Rate 80 83 80 Respiratory Rate 12 18 17 Blood Pressure Pulse Oximetry 97 97 97 05/02/22 21:55 05/02/22 22:00 05/02/22 22:05 Pulse Rate 80 79 80 Respiratory Rate 19 17 16 Blood Pressure Pulse Oximetry 98 97 97 05/02/22 22:10 05/02/22 22:15 05/02/22 22:20 Pulse Rate 84 84 86 Respiratory Rate 14 14 14 Blood Pressure Pulse Oximetry 97 98 97 05/02/22 22:25 05/02/22 22:30 05/02/22 22:35 Pulse Rate 81 84 83 Respiratory Rate 19 20 19 Blood Pressure Pulse Oximetry 98 97 97 05/02/22 22:40 05/02/22 22:45 05/02/22 22:47 Pulse Rate 88 87 86 Respiratory Rate 20 19 18 Blood Pressure Pulse Oximetry 98 97 97 05/02/22 22:47 05/02/22 23:04 05/02/22 23:05 Pulse Rate 95 H 97 H Respiratory Rate 20 Blood Pressure 107/57 L Pulse Oximetry 99 99 05/02/22 23:06 05/02/22 23:06 05/02/22 23:10 Pulse Rate 95 H Respiratory Rate 18 Blood Pressure 107/61 106/55 L Pulse Oximetry 98 05/02/22 23:10 05/02/22 23:15 05/02/22 23:15 Pulse Rate 93 H 85 Respiratory Rate 20 22 Blood Pressure 106/57 L Pulse Oximetry 99 98 05/02/22 23:20 05/02/22 23:20 05/02/22 23:25 Pulse Rate 84 Respiratory Rate 23 Blood Pressure 107/56 L 109/58 L Pulse Oximetry 97 05/02/22 23:25 05/02/22 23:30 05/02/22 23:30 Pulse Rate 84 84 Respiratory Rate 22 21 Blood Pressure 98/56 L Pulse Oximetry 98 97 05/02/22 23:35 05/02/22 23:35 05/02/22 23:40 Pulse Rate 82 Respiratory Rate 21 Blood Pressure 98/57 L 101/59 L Pulse Oximetry 97 05/02/22 23:40 05/02/22 23:45 05/02/22 23:45 Pulse Rate 86 80 Respiratory Rate 20 21 Blood Pressure 106/59 L Pulse Oximetry 97 97 05/02/22 23:50 05/02/22 23:50 05/02/22 23:55 Pulse Rate 81 Respiratory Rate 21 Blood Pressure 97/54 L 104/55 L Pulse Oximetry 96 05/02/22 23:55 05/03/22 00:00 05/03/22 00:00 Pulse Rate 86 77 Respiratory Rate 19 20 Blood Pressure 104/59 L Pulse Oximetry 96 96 05/03/22 00:05 05/03/22 00:05 05/03/22 00:10 Pulse Rate 76 Respiratory Rate 19 Blood Pressure 99/55 L 92/50 L Pulse Oximetry 97 05/03/22 00:10 05/03/22 00:15 05/03/22 00:15 Pulse Rate 77 79 Respiratory Rate 20 17 Blood Pressure 101/55 L Pulse Oximetry 96 96 05/03/22 00:17 05/03/22 00:17 05/03/22 00:20 Pulse Rate 81 Respiratory Rate 19 Blood Pressure 112/64 106/57 L Pulse Oximetry 98 05/03/22 00:20 05/03/22 00:25 05/03/22 00:25 Pulse Rate 78 79 Respiratory Rate 20 19 Blood Pressure 102/58 L Pulse Oximetry 97 97 05/03/22 00:30 05/03/22 00:30 05/03/22 00:35 Pulse Rate 84 Respiratory Rate 15 Blood Pressure 107/58 L 101/58 L Pulse Oximetry 98 05/03/22 00:35 05/03/22 00:40 05/03/22 00:40 Pulse Rate 80 83 Respiratory Rate 20 18 Blood Pressure 103/59 L Pulse Oximetry 97 97 05/03/22 00:45 05/03/22 00:45 Pulse Rate 80 Respiratory Rate 17 Blood Pressure 101/56 L Pulse Oximetry 97 MDM - Allergic Reaction Lab Data 05/02/22 18:00 05/02/22 18:00 Labs: Lab Results 05/02/22 05/02/22 05/02/22 Range/Units 18:00 18:00 18:00 WBC 7.6 (4.5-11.0) X10^3/uL RBC 4.72 (4.0-5.2) X10^6/uL Hgb 13.4 (12.0-16.0) g/dL Hct 40.0 (36-46) % MCV 84.8 (80-100) fL MCH 28.4 (26-34) PG MCHC 33.5 (30-36) % RDW 13.8 (11.6-14.8) % Plt Count 297 (150-400) X10^3/uL Neut % (Auto) 57.6 (50-75) % Lymph % (Auto) 32.3 (25-40) % [place] % (Auto) 7.6 (3-14) % Eos % (Auto) 1.2 L (2-4) % Baso % (Auto) 1.3 (0-2) % Neut # (Auto) 4400 (6229-4293) /uL Lymph # (Auto) 2400 (1835-4582) /uL [place] # (Auto) 600 (0-900) /uL Eos # (Auto) 100 (0-450) /uL Baso # (Auto) 100 (0-100) /uL Sodium 137 (137-145) mmol/L Potassium 4.1 (3.4-5.1) mmol/L Chloride 101 (98-107) mmol/L Carbon Dioxide 23 (22-32) mmol/L BUN 10 (7-17) mg/dL Creatinine 0.56 (0.52-1.04) mg/dL Estimated GFR > 60 (>60) mL/min BUN/Creatinine Ratio 17.9 (6-22) Glucose 161 H (70-100) mg/dL Lactate 2.7 H (0.7-2.1) mmol/L Calcium 9.7 (8.4-10.2) mg/dL Total Bilirubin 0.4 (0.2-1.3) mg/dL AST 79 H (14-36) IU/L ALT 93 H (<35) IU/L Alkaline Phosphatase 56 (38-126) U/L Total Protein 8.2 (6.3-8.2) g/dL Albumin 5.0 (3.5-5.0) g/dL Globulin 3.2 (1.7-4.1) g/dL Albumin/Globulin Ratio 1.6 (1.0-2.8) Lipase 168 (23-300) U/L TSH (0.47-4.68) uIU/mL Prolactin (3.0-18.6) ng/mL Salicylates (<20) mg/dL Acetaminophen (10-30) ug/mL Ethyl Alcohol < 10 ( - 10) mg/dL 05/02/22 05/02/22 05/02/22 Range/Units 18:00 18:00 20:48 WBC (4.5-11.0) X10^3/uL RBC (4.0-5.2) X10^6/uL Hgb (12.0-16.0) g/dL Hct (36-46) % MCV (80-100) fL MCH (26-34) PG MCHC (30-36) % RDW (11.6-14.8) % Plt Count (150-400) X10^3/uL Neut % (Auto) (50-75) % Lymph % (Auto) (25-40) % [place] % (Auto) (3-14) % Eos % (Auto) (2-4) % Baso % (Auto) (0-2) % Neut # (Auto) (9185-0697) /uL Lymph # (Auto) (2153-1755) /uL [place] # (Auto) (0-900) /uL Eos # (Auto) (0-450) /uL Baso # (Auto) (0-100) /uL Sodium (137-145) mmol/L Potassium (3.4-5.1) mmol/L Chloride (98-107) mmol/L Carbon Dioxide (22-32) mmol/L BUN (7-17) mg/dL Creatinine (0.52-1.04) mg/dL Estimated GFR (>60) mL/min BUN/Creatinine Ratio (6-22) Glucose (70-100) mg/dL Lactate Cancelled (0.7-2.1) mmol/L Calcium (8.4-10.2) mg/dL Total Bilirubin (0.2-1.3) mg/dL AST (14-36) IU/L ALT (<35) IU/L Alkaline Phosphatase (38-126) U/L Total Protein (6.3-8.2) g/dL Albumin (3.5-5.0) g/dL Globulin (1.7-4.1) g/dL Albumin/Globulin Ratio (1.0-2.8) Lipase (23-300) U/L TSH 2.21 (0.47-4.68) uIU/mL Prolactin 36.0 H (3.0-18.6) ng/mL Salicylates < 1.0 (<20) mg/dL Acetaminophen < 10 (10-30) ug/mL Ethyl Alcohol ( - 10) mg/dL 05/02/22 05/02/22 Range/Units 20:48 20:48 WBC (4.5-11.0) X10^3/uL RBC (4.0-5.2) X10^6/uL Hgb (12.0-16.0) g/dL Hct (36-46) % MCV (80-100) fL MCH (26-34) PG MCHC (30-36) % RDW (11.6-14.8) % Plt Count (150-400) X10^3/uL Neut % (Auto) (50-75) % Lymph % (Auto) (25-40) % [place] % (Auto) (3-14) % Eos % (Auto) (2-4) % Baso % (Auto) (0-2) % Neut # (Auto) (0608-9173) /uL Lymph # (Auto) (6962-8952) /uL [place] # (Auto) (0-900) /uL Eos # (Auto) (0-450) /uL Baso # (Auto) (0-100) /uL Sodium (137-145) mmol/L Potassium (3.4-5.1) mmol/L Chloride (98-107) mmol/L Carbon Dioxide (22-32) mmol/L BUN (7-17) mg/dL Creatinine (0.52-1.04) mg/dL Estimated GFR (>60) mL/min BUN/Creatinine Ratio (6-22) Glucose (70-100) mg/dL Lactate 1.5 (0.7-2.1) mmol/L Calcium (8.4-10.2) mg/dL Total Bilirubin (0.2-1.3) mg/dL AST (14-36) IU/L ALT (<35) IU/L Alkaline Phosphatase (38-126) U/L Total Protein (6.3-8.2) g/dL Albumin (3.5-5.0) g/dL Globulin (1.7-4.1) g/dL Albumin/Globulin Ratio (1.0-2.8) Lipase (23-300) U/L TSH (0.47-4.68) uIU/mL Prolactin 31.2 H (3.0-18.6) ng/mL Salicylates (<20) mg/dL Acetaminophen (10-30) ug/mL Ethyl Alcohol ( - 10) mg/dL MDM Narrative Medical decision making narrative: CC: 37-year-old female with sensation that her throat was closing, history of allergic type reactions, patient reports that she was shaking but alertly. No rash or trouble breathing Complicating co-morbidities: Prior allergic reactions, seizure-like activity Data collected from: Patient Medical records reviewed: Prior emergency department visits Differential considered, but not limited to: Allergic reaction, throat infection, atypical seizure given shaking versus other Exam documented above, pertinent findings include: Patient alert and oriented, no trouble controlling secretions or breathing, no focal neurologic findings Lab Test results independently reviewed as above. Pertinent findings: Initial elevated lactate significantly improved after fluids and time, prolactin nonspecific but could suggest shaking was from some seizure-type activity. Scores Used: NIHSS MIPS Elements: None indicated Treatments: Ativan, saline, diphenhydramine, pepcid, epinephrine Re-evaluations: Patient significantly improved over the course of the visit with no recurrence any shaking type activity, throat difficulties, trouble breathing. She did become nauseated and had forceful vomiting after epinephrine was given but this resolved after treatment with Zofran. Discussion: 37-year-old female presents with chief complaint of concern for allergic-type reaction given fullness in her throat and trouble swallowing, this was treated with standard therapies and patient improved over the course of visit. She had no trouble breathing, no rash, no GI complaints initially but did become very nauseated with vomiting after epinephrine administered. She was treated with Zofran and had improvement over the course of her visit. She is tolerating orals. There is some question about the potential of seizure-type activity given some uncontrollable shaking but patient was alert and absence of any obvious postictal phase. She did have initially elevated lactate that cleared with time and fluids, probe lacked in improving, possible focal seizure. Negative NIH stroke scale, no reproducible neurologic findings to suggest stroke or stroke evaluation indicated. Disposition: see below, along with detailed discharge instructions that have been reviewed with patient as well as indications for ED re-evaluation and additional outpatient follow up Discharge Plan Departure Patient Disposition: Home Clinical Impression: Allergic reaction Instructions: DI for General Allergic Reactions Activity Restrictions/Additional Instructions: *You have been diagnosed with [throat fullness possibly due to allergic reaction. As we discussed your history and physical exam, response to therapies and labs are very reassuring] *What to do: *Please continue to take your regular medications as directed. [x ] New medication prescriptions sent to your pharmacy: [[facility] ] [ ] New medication written as a paper prescription [ ] No new medications given *Please follow up with your primary care provider in 2-3 days, call for an appointment. Let them know you were seen in the Emergency Department and that we ask that you be seen in follow up. We will electronically transmit a record of today's note if your PCP is in our system *If you do not have a primary care provider please contact the [facility] Resource line at [phone]. They will ask some questions about your medical history and help get you set up with a doctor in the community. *Return to Emergency Department if you should have any new, worsening or concerning symptoms, such as [fever greater than 101 F, shaking chills, worsening pain, persistent vomiting or other bothersome symptoms] Prescriptions: New prednisone 20 mg tablet 20 mg PO DAILY Qty: 5 0RF Rx Instructions: administer with food or milk ondansetron 4 mg tablet,disintegrating 4 mg PO TID-QID PRN (Reason: nausea and vomiting) Qty: 10 0RF famotidine [Pepcid] 20 mg tablet 20 mg PO DAILY Qty: 7 0RF epinephrine [EpiPen 2-Lj] 0.3 mg/0.3 mL auto-injector 0.3 mg IM Q5-15M PRN (Reason: anaphylaxis) Qty: 2 0RF Rx Instructions: do not exceed 3 doses per episode No Action fluoxetine 10 mg capsule 10 mg PO DAILY cetirizine [Zyrtec] 10 mg tablet 10 mg PO DAILY PRN epinephrine 0.3 mg/0.3 mL auto-injector 0.3 mg IM Q5-15M PRN (Reason: anaphylaxis) Qty: 2 0RF Rx Instructions: do not exceed 3 doses per episode Referrals: Fiona Doe ARNP [Primary Care Provider] - Stand Alone Forms: Patient Portal/API
[2022-05-02 18:31] LABS: Add Manual Diff / Slide Review NO; Basophils Absolute Auto 100 /uL (0-100); Basophils Percent Auto 1.3 % (0-2); Eosinophils Absolute Auto 100 /uL (0-450); Eosinophils Percent Auto 1.2 % (2-4); Hemoglobin 13.4 g/dL (12.0-16.0); Lymphocytes Absolute Auto 2400 /uL (1100-4500); Lymphocytes Percent Auto 32.3 % (25-40); Mean Corpuscular HGB Conc 33.5 % (30-36); Mean Corpuscular Hemoglobin 28.4 PG (26-34); Mean Corpuscular Volume 84.8 fL (80-100); Monocytes Absolute Auto 600 /uL (0-900); Monocytes Percent Auto 7.6 % (3-14); Neutrophils Absolute Auto 4400 /uL (1500-7000); Neutrophils Percent Auto 57.6 % (50-75); Platelet Count 297 X10^3/uL (150-400); Red Blood Cell Count 4.72 X10^6/uL (4.0-5.2); Red Cell Distribution Width 13.8 % (11.6-14.8); White Blood Cell Count 7.6 X10^3/uL (4.5-11.0)
[2022-05-02 18:38] LABS: Alanine Aminotransferase 93 IU/L (<35); Albumin Globulin Ratio 1.6 (1.0-2.8); Alkaline Phosphatase 56 U/L (38-126); Aspartate Aminotransferase 79 IU/L (14-36); BUN Creatinine Ratio 17.9 (6-22); Bilirubin Total 0.4 mg/dL (0.2-1.3); Blood Urea Nitrogen 10 mg/dL (7-17); Calcium 9.7 mg/dL (8.4-10.2); Carbon Dioxide 23 mmol/L (22-32); Chloride 101 mmol/L (98-107); Estimated Glomerular Filt Rate > 60 mL/min (>60); Ethanol (ETOH) < 10 mg/dL; Globulin 3.2 g/dL (1.7-4.1); Glucose 161 mg/dL (70-100); HEMOLYSIS < 15 (0-50); Lipase 168 U/L (23-300); Potassium 4.1 mmol/L (3.4-5.1); Sodium 137 mmol/L (137-145); Total Protein 8.2 g/dL (6.3-8.2)
[2022-05-02 19:06] LABS: Acetaminophen < 10 ug/mL (10-30); Salicylate < 1.0 mg/dL (<20)
[2022-05-02 19:07] LABS: Lactate (Lactic Acid) 2.7 mmol/L (0.7-2.1)
[2022-05-02 19:38] LABS: Thyroid Stimulating Hormone 2.21 uIU/mL (0.47-4.68)
--- NOTE | 2022-05-02 20:03 | PC.NURSE ---
Verbal order to increase Normal saline from 125ml/hr to Bolus. Bolus initiated at 2000
--- NOTE | 2022-05-02 20:17 | PC.NURSE ---
Patient's asking for a Tryptase level to done 2hrs post epinepherine at the request of her hvac tech. This information was passed onto Dr Gonzalez
[2022-05-02 20:49] LABS: Reflexed Lactate in 2 Hours Y
[2022-05-02 21:34] LABS: Lactate 2HR (Lactic Acid Rflx) 1.5 mmol/L (0.7-2.1)
[2022-05-02 22:45] LABS: Prolactin 31.2 ng/mL (3.0-18.6)
[2022-05-03] VITALS (11 sets, daily range): BP systolic 92–112; BP diastolic 50–64; PULSE 76–84; RESP 15–20; O2SAT 96–98
== END 2022-05-03 01:06 | disposition home or self-care (01) ==
PROVIDERS: Emergency Medicine; Emergency Provider Emergency Medicine; PCP Internal Medicine
DX: T78.40XA Allergy, unspecified, initial encounter (principal); R13.10 Dysphagia, unspecified; R56.9 Unspecified convulsions; R29.700 NIHSS score 0
CPT/HCPCS: 36415; 80053; 80320; 80329; 83520; 83605; 83690; 84146; 84443; 85025; 96361; 96372; 96374; 96375; 99284; G0480; J0171; J1200; J2060; J2405; J2930

== ENCOUNTER 2022-05-30 14:04 | Emergency (ER) | payer OTHER, SELFPAY ==
[2021-11-08 23:15] VITALS: PULSE 92; RESP 15; O2SAT 100
[2022-05-30 14:12] VITALS: BP 126/73; PULSE 93; RESP 19; TEMP 37; O2SAT 99
--- NOTE | 2022-05-30 14:36 | ED_ITS ---
HPI - Headache General Chief Complaint: Headache Stated Complaint: migrane had a shot not working sent by Time Seen by Provider: 05/30/22 14:28 Mode of arrival: Family Vehicle History of Present Illness HPI Narrative: Patient brought here by her friend for complaints of migraine flare-up headache. No changes with Imitrex injection yesterday or the pill. Headache started yesterday. Same headache as she is had in the past, started in October of last year. Off and on episodes. Has hemiplegic migraines. Has left-sided weakness and shaking with these episodes. She states her last episode was 1 month ago. Has been fully worked up by Neurology MRI as well as Cardiology. No new stressors. No new medications or changes in life. She is had CT of the head CT angiogram as well. Patient is awake alert oriented x4. Has had nausea and vomiting and sound and light sensitivity. This is the same headache she always gets when she has flare-ups. She and her friend state she has migraines that mimic a seizure but again no history of seizures. These migraines also mimic a stroke. She states this is not uncommon what is happening this time Related Data Home Medications Medication Instructions Recorded Confirmed cetirizine 10 mg tablet (Zyrtec) 10 mg PO DAILY PRN 01/04/22 01/09/22 fluoxetine 10 mg capsule 10 mg PO DAILY 01/04/22 01/09/22 Previous Rx's Medication Instructions Recorded epinephrine 0.3 mg/0.3 mL 0.3 mg (0.3 mL) IM Q5-15M PRN 11/12/21 injection, auto-injector anaphylaxis #2 ea epinephrine 0.3 mg/0.3 mL 0.3 mg (0.3 mL) IM Q5-15M PRN 05/03/22 injection, auto-injector (EpiPen anaphylaxis #2 ea 2-Lj) famotidine 20 mg tablet (Pepcid) 20 mg PO DAILY #7 tabs 05/03/22 ondansetron 4 mg disintegrating 4 mg PO TID-QID PRN nausea and 05/03/22 tablet vomiting #10 tabs prednisone 20 mg tablet 20 mg PO DAILY #5 tabs 05/03/22 Allergies Allergy/AdvReac Type Severity Reaction Status Date / Time latex [LATEX] Allergy Mild MILD RASH Verified 05/30/22 14:12 Review of Systems Review of Systems Narrative: GENERAL: negative chills, fatigue, malaise, fever, sweats. HEENT: negative sinus pain, ear pain, sore throat RESPIRATORY: negative dyspnea, cough CARDIOVASCULAR: negative chest pain, palpitations GASTROINTESTINAL: Positive nausea, vomiting, negative abdominal pain : negative dysuria, frequency, hematuria MUSCULOSKELETAL: negative muscle or bony pain SKIN: negative rash, skin lesions NEUROLOGIC: , numbness, positive headache, positive left side weakness ROS Unobtainable: All systems reviewed & are unremarkable except as noted in HPI and below Patient History Medical History Chicken pox Depression (~2005) Headache Kidney stones (~2010) Migraines (~2008) Painful menstrual periods Surgical History Anesthesia History of tonsillectomy (~2001) Status post delivery (10/23/11) Status post delivery (07/14/13) Family History Grandfather No problems noted. Social History Smoking Status: Never smoker Smoking Status: Never smoker alcohol intake frequency: other Substance Use Type: does not use Exam Narrative Exam Narrative: GENERAL: in no distress, not toxic not dyspneic HEAD: Normocephalic. EYES: Pupils equal round, patient is photophobic with funduscopy ENT: Mucous membranes moist. NECK: Trachea midline. CARDIOVASCULAR: Regular rate and rhythm without murmurs RESPIRATORY: Clear to auscultation. Breath sounds equal bilaterally. No wheezes, rales, or rhonchi. GASTROINTESTINAL: Abdomen soft, non-tender EXTREMITIES: No gross deformities. BACK: No flank tenderness. NEURO: AOx4. Clear speech. 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 Able to wiggle her toes. She does keep both limbs very straight in a dystonic way. Freely moving her right arm and right leg. Has clear speech no facial droop light touch intact bilateral face hands and legs. SKIN: Warm and dry PSYCH: Not anxious, is cooperative Initial Vital Signs Initial Vital Signs: Vital Signs Temperature 98.6 F 05/30/22 14:12 Pulse Rate 93 H 05/30/22 14:12 Respiratory Rate 19 05/30/22 14:12 Blood Pressure 126/73 05/30/22 14:12 Pulse Oximetry 99 05/30/22 14:12 Oxygen Delivery Method Room Air 05/30/22 14:12 Course Orders Ordered: Discontinued Medications Sodium Chloride (Normal Saline 0.9%) 1,000 mls @ 1,000 mls/hr IV BOLUS ONE Stop: 05/30/22 15:33 Last Infusion: 05/30/22 16:11 Dose: 0 mls/hr Documented By: Admin: 05/30/22 14:43 Dose: 1,000 mls/hr Documented By: CARLA Morphine Sulfate (Morphine 4 Mg/Ml Inj) 4 mg IV NOW ONE Stop: 05/30/22 14:35 Last Admin: 05/30/22 14:43 Dose: 4 mg Documented By: CARLA Ondansetron HCl (Ondansetron 4 Mg/2 Ml Inj) 4 mg IV NOW ONE Stop: 05/30/22 14:39 Last Admin: 05/30/22 14:43 Dose: 4 mg Documented By: CARLA Prochlorperazine (Prochlorperazine 10 Mg/2 Ml Vial) 10 mg IV NOW ONE Stop: 05/30/22 14:35 Last Admin: 05/30/22 15:03 Dose: Not Given Documented By: AUSTIN Prochlorperazine (Prochlorperazine 10 Mg/2 Ml Vial) 10 mg IV NOW ONE Stop: 05/30/22 15:11 Last Admin: 05/30/22 15:19 Dose: 10 mg Documented By: AUSTIN Vital Signs Vital signs: Vital Signs - 8 hr 05/30/22 14:12 05/30/22 15:19 05/30/22 15:20 Temperature 98.6 F Pulse Rate 93 H 81 87 Respiratory Rate 19 Blood Pressure 126/73 124/64 Pulse Oximetry 99 99 Oxygen Delivery Method Room Air 05/30/22 15:21 05/30/22 15:21 Temperature Pulse Rate 81 Respiratory Rate 22 Blood Pressure 121/64 Pulse Oximetry 98 Oxygen Delivery Method Room Air MDM - Headache Lab Data Labs: Lab Results 05/30/22 Range/Units 16:03 Urine RBC 0-1/hpf (0-5/HPF) Urine WBC 0-1/hpf (0-5/HPF) Ur Squamous Epith Cells 10-30 /hpf H D (0-5/HPF) Urine Bacteria Few (2-10) H (None) Ur Culture Indicated? Cult not indicated Point of Care Testing Test Results Negative Urine Dip Bedside Urine Glucose Negative Bedside Urine Bilirubin - Negative Bedside Urine Ketone - Negative Urine Specific [place] 1.015 Bedside Urine Occult Blood +/- Bedside Urine pH 7.5 Bedside Urine Protein - Negative Bedside Urine Urobilinogen - Negative Bedside Urine Nitrite - Negative Bedside Urine Leukocytes - Negative Esterase [facility] Narrative Medical decision making narrative: Patient brought here by her friend for complaints of migraine flare-up headache. No changes with Imitrex injection yesterday or the pill. Headache started yesterday. Same headache as she is had in the past, started in October of last year. Off and on episodes. Has hemiplegic migraines. Has left-sided weakness and shaking with these episodes. She states her last episode was 1 month ago. Has been fully worked up by Neurology MRI as well as Cardiology. No new stressors. No new medications or changes in life. She is had CT of the head CT angiogram as well. Patient is awake alert oriented x4. Has had nausea and vomiting and sound and light sensitivity. This is the same headache she always gets when she has flare-ups. She and her friend state she has migraines that m imic a seizure but again no history of seizures. These migraines also mimic a stroke. She states this is not uncommon what is happening this time After history and exam morphine Zofran normal saline have been ordered [facility] CC: Headache Complicating co-morbidities: Chronic migraine headache Data collected from: Patient and friend Medical records reviewed: Seen here for syncope allergic reaction in the past. Patient had CT head CT head and neck angiogram CT chest angiogram in October of last year Differential considered: Includes but not limited to migraine headache intracranial bleed seizure stroke Exam documented above, pertinent findings include: Photophobic on exam. There is left-sided dystonic like features Lab Test results independently reviewed as above. Pertinent findings: No blood work indicated at this time. Independently reviewed EKG as above no EKG indicated this time. Imaging studies independently reviewed: No imaging indicated at this time given recent CT imaging of the head last year Treatments: Morphine Zofran Compazine normal saline Re-evaluations: 4:30 p.m.. Patient states her headache has resolved. No nausea or vomiting no sensitivity to light or sound. She is awake alert and smiling. at bedside. Is at baseline now. She desires discharge home. Return precautions reviewed with her. Discussion: Appropriate for discharge home. No imaging blood work indicated. This is her typical migraine flare up. Symptoms have resolved completely. Patient is smiling now. Return precautions reviewed with her. She desires discharge home. Diagnosis: Migraine headache Discharge Plan Departure Patient Disposition: Home Clinical Impression: Migraine Instructions: DI for Migraine Activity Restrictions/Additional Instructions: No driving or operating machinery today. Please see your neurologist/family doctor within a week for re-evaluation. Return if worse if any questions or concerns. May continue home medications. Prescriptions: No Action fluoxetine 10 mg capsule 10 mg PO DAILY cetirizine [Zyrtec] 10 mg tablet 10 mg PO DAILY PRN epinephrine 0.3 mg/0.3 mL auto-injector 0.3 mg IM Q5-15M PRN (Reason: anaphylaxis) Qty: 2 0RF Rx Instructions: do not exceed 3 doses per episode prednisone 20 mg tablet 20 mg PO DAILY Qty: 5 0RF Rx Instructions: administer with food or milk ondansetron 4 mg tablet,disintegrating 4 mg PO TID-QID PRN (Reason: nausea and vomiting) Qty: 10 0RF famotidine [Pepcid] 20 mg tablet 20 mg PO DAILY Qty: 7 0RF epinephrine [EpiPen 2-Lj] 0.3 mg/0.3 mL auto-injector 0.3 mg IM Q5-15M PRN (Reason: anaphylaxis) Qty: 2 0RF Rx Instructions: do not exceed 3 doses per episode Referrals: Fiona Doe ARNP [Primary Care Provider] - Stand Alone Forms: Patient Portal/API
[2022-05-30] MEDS: MORPHINE 4 MG/ML INJ IV (14:43)
[2022-05-30] MEDS: SODIUM CHLORIDE 0.9% 1,000 ML 1000 ML IV (14:43)
[2022-05-30] MEDS: ONDANSETRON 4 MG/2 ML INJ IV (14:43)
[2022-05-30 15:19] VITALS: BP 124/64; PULSE 81
[2022-05-30] MEDS: PROCHLORPERAZINE 10 MG/2 ML VIAL IV (15:19)
[2022-05-30 15:20] VITALS: PULSE 87; O2SAT 99
[2022-05-30 15:21] VITALS: BP 121/64; PULSE 81; RESP 22; O2SAT 98
[2022-05-30 15:30] VITALS: BP 107/53; PULSE 67; RESP 14; O2SAT 98
[2022-05-30 16:35] LABS: Bacteria Urine Few (2-10); Culture Indicated Urine Cult Not Indicated; RBC Urine 0-1/HPF (0-5/HPF); Squamous Epithelial Cell Urine 10-30 /HPF (0-5/HPF); WBC Urine 0-1/HPF (0-5/HPF)
[2022-05-30 17:20] VITALS: BP 122/78; PULSE 70; RESP 16
== END 2022-05-30 17:21 | disposition home or self-care (01) ==
PROVIDERS: Emergency Provider Emergency Medicine; PCP Internal Medicine
DX: G43.909 Migraine, unspecified, not intractable, without status migrainosus (principal)
CPT/HCPCS: 36415; 81003; 81015; 81025; 96361; 96374; 96375; 99284; J0780; J2270; J2405

== ENCOUNTER 2022-07-25 17:29 | Emergency (ER) | payer OTHER, SELFPAY ==
[2021-11-08 23:15] VITALS: PULSE 92; RESP 15; O2SAT 100
[2022-07-25 18:06] VITALS: BP 125/62; PULSE 89; RESP 16; TEMP 36.8; O2SAT 98; BMI 32.9
--- NOTE | 2022-07-25 18:49 | DI.US.S_ITS ---
PROCEDURE: US ABDOMEN LIMITED INDICATIONS: RUQ PAIN TECHNIQUE: Real-time scanning was performed of the abdominal and retroperitoneal organs, with image documentation. COMPARISON: [facility], [place], ABDOMEN COMPLETE, 02/06/2011, 17:01. FINDINGS: Liver: Liver is normal in size and demonstrates diffusely increased echotexture. Gallbladder: No gallstones. No gallbladder wall thickening, pericholecystic fluid or sonographic Rivera's sign. Biliary ducts: Intrahepatic bile ducts are non-dilated. Extrahepatic bile duct caliber measures 6 point mm. Normal is 6-7 mm or less in diameter, or 10 mm or less post-cholecystectomy. Pancreas: Obscured by overlying bowel gas. Miscellaneous: No free abdominal fluid. IMPRESSION: 1. Diffusely increased hepatic echotexture. This finding is most likely secondary to hepatic fatty infiltration although other hepatocellular disease may have a similar appearance. Recommend clinical correlation. 2. Normal gallbladder. 3. Pancreas not seen on ultrasound. Dictated by: Vikas Manzo M.D. on 07/25/2022 at 20:55 Approved by: Vikas Manzo M.D. on 07/25/2022 at 20:56
[2022-07-25 19:09] LABS: Pregnancy Test Urine Negative (Negative)
[2022-07-25 19:13] LABS: Add Manual Diff / Slide Review NO; Basophils Absolute Auto 100 /uL (0-100); Basophils Percent Auto 0.9 % (0-2); Eosinophils Absolute Auto 100 /uL (0-450); Eosinophils Percent Auto 1.4 % (2-4); Hematocrit 37.2 % (36-46); Hemoglobin 12.6 g/dL (12.0-16.0); Lymphocytes Absolute Auto 1900 /uL (1100-4500); Mean Corpuscular HGB Conc 33.8 % (30-36); Mean Corpuscular Hemoglobin 28.7 PG (26-34); Mean Corpuscular Volume 84.8 fL (80-100); Monocytes Absolute Auto 500 /uL (0-900); Monocytes Percent Auto 8.1 % (3-14); Neutrophils Absolute Auto 3300 /uL (1500-7000); Neutrophils Percent Auto 56.6 % (50-75); Platelet Count 287 X10^3/uL (150-400); Red Blood Cell Count 4.38 X10^6/uL (4.0-5.2); Red Cell Distribution Width 14.1 % (11.6-14.8); White Blood Cell Count 5.9 X10^3/uL (4.5-11.0)
[2022-07-25 19:14] LABS: Appearance Urine UA CLEAR; Bilirubin Urine UA NEGATIVE (NEGATIVE); Color Urine UA YELLOW; Glucose Urine UA NEGATIVE (Negative); Ketones Urine UA NEGATIVE (NEGATIVE); Leukocyte Esterase Urine UA NEGATIVE (NEGATIVE); Nitrite Urine UA NEGATIVE (Negative); Occult Blood Urine UA NEGATIVE (Negative); Protein Urine UA NEGATIVE (Negative); Urobilinogen Urine UA 0.2 E.U./dL (0.2)
[2022-07-25 19:15] LABS: pH Urine UA 7.5 (4.5-8.0)
[2022-07-25 19:21] LABS: Alanine Aminotransferase 98 IU/L (<35); Albumin 4.8 g/dL (3.5-5.0); Albumin Globulin Ratio 1.5 (1.0-2.8); Alkaline Phosphatase 48 U/L (38-126); Aspartate Aminotransferase 70 IU/L (14-36); BUN Creatinine Ratio 26.4 (6-22); Bilirubin Total 0.6 mg/dL (0.2-1.3); Blood Urea Nitrogen 14 mg/dL (7-17); Calcium 9.6 mg/dL (8.4-10.2); Carbon Dioxide 28 mmol/L (22-32); Chloride 100 mmol/L (98-107); Estimated Glomerular Filt Rate > 60 mL/min (>60); Globulin 3.2 g/dL (1.7-4.1); Glucose 109 mg/dL (70-100); HEMOLYSIS 33 (0-50); Lipase 134 U/L (23-300); Potassium 4.2 mmol/L (3.4-5.1); Sodium 136 mmol/L (137-145)
[2022-07-25 19:59] LABS: Bacteria Urine Few (2-10); Culture Indicated Urine Cult Not Indicated; RBC Urine None Seen (0-5/HPF); Squamous Epithelial Cell Urine None Seen (0-5/HPF); WBC Urine None Seen (0-5/HPF)
[2022-07-25 20:52] VITALS: BMI 32.9
--- NOTE | 2022-07-25 21:43 | ED.GENADULT ---
HPI - General Adult General Chief complaint: Abdominal Pain Stated complaint: upper abd pain radiating to shoulder and back Time Seen by Provider: 07/25/22 21:33 Source: patient Mode of arrival: Ambulatory Limitations: no limitations History of Present Illness HPI narrative: Patient is 37-year-old female who is here for evaluation of epigastric abdominal pain and back pain. She states the symptoms been going on for the past couple weeks specifically with eating and drinking. Some nausea no vomiting. No change in bowel habits. No urinary symptoms. She has had C-sections in the past but no other abdominal surgeries. Has not tried anything for symptoms prior to arrival. At the time of my exam she stated that she was also having a ?hemiplegic migraine? she has a history of these. She states she is numb on the left side. This has happened to her in the past. She feels like the headache is because of the stress of being here in the emergency department in the pain. Related Data Home Medications Medication Instructions Recorded Confirmed cetirizine 10 mg tablet (Zyrtec) 10 mg PO DAILY PRN 01/04/22 01/09/22 fluoxetine 10 mg capsule 10 mg PO DAILY 01/04/22 01/09/22 Previous Rx's Medication Instructions Recorded epinephrine 0.3 mg/0.3 mL 0.3 mg (0.3 mL) IM Q5-15M PRN 11/12/21 injection, auto-injector anaphylaxis #2 ea epinephrine 0.3 mg/0.3 mL 0.3 mg (0.3 mL) IM Q5-15M PRN 05/03/22 injection, auto-injector (EpiPen anaphylaxis #2 ea 2-Lj) famotidine 20 mg tablet (Pepcid) 20 mg PO DAILY #7 tabs 05/03/22 ondansetron 4 mg disintegrating 4 mg PO TID-QID PRN nausea and 05/03/22 tablet vomiting #10 tabs prednisone 20 mg tablet 20 mg PO DAILY #5 tabs 05/03/22 sucralfate 100 mg/mL oral 10 ml PO QACHS #414 mL 07/25/22 suspension (Carafate) Allergies Allergy/AdvReac Type Severity Reaction Status Date / Time latex [LATEX] Allergy Mild MILD RASH Verified 07/25/22 18:06 Review of Systems Constitutional Constitutional: Reports system reviewed and no additional complaints, except as documented Gastrointestinal Gastrointestinal: Reports system reviewed and no additional complaints, except as documented Genitourinary Genitourinary: Reports system reviewed and no additional complaints, except as documented Integumentary/Breasts Skin/Breast: Reports system reviewed and no additional complaints, except as documented Neurologic Neurologic: Reports system reviewed and no additional complaints, except as documented Patient History Medical History Chicken pox Depression (~2005) Headache Kidney stones (~2010) Migraines (~2008) Painful menstrual periods Surgical History Anesthesia History of tonsillectomy (~2001) Status post delivery (10/23/11) Status post delivery (07/14/13) Family History Grandfather No problems noted. Social History Smoking Status: Never smoker Smoking Status: Never smoker alcohol intake frequency: other Substance Use Type: does not use Exam Initial Vital Signs Initial Vital Signs: Vital Signs Temperature 98.3 F 07/25/22 18:06 Pulse Rate 89 07/25/22 18:06 Respiratory Rate 16 07/25/22 18:06 Blood Pressure 125/62 07/25/22 18:06 Pulse Oximetry 98 07/25/22 18:06 Oxygen Delivery Method Room Air 07/25/22 18:06 Const General: cooperative, healthy appearing and No ill appearing HENMT Head: normal to inspection and normocephalic Resp Effort & Inspection: normal respiratory effort Auscultation: clear to auscultation bilaterally Cardio Rate: regular rate GI Inspection: normal to inspection and non-distended Palpation: tender (Epigastric region) Skin General: no rashes or lesions noted Neuro General: patient alert, patient awake and moves all extremities Extrem General: capillary refill normal Course Orders Ordered: Discontinued Medications Al Hydrox/Mg Hydrox/Simethicone 20 ml/ Lidocaine HCl 15 ml 0 ml PO NOW ONE Stop: 07/25/22 21:44 Last Admin: 07/25/22 22:07 Dose: 20 ml Documented By: GC Diphenhydramine HCl (Diphenhydramine 50 Mg/Ml Vial) 25 mg IV NOW ONE Stop: 07/25/22 21:44 Last Admin: 07/25/22 22:09 Dose: 25 mg Documented By: CLAUDIA Metoclopramide HCl (Metoclopramide 10 Mg/2 Ml Inj) 10 mg IV NOW ONE Stop: 07/25/22 21:44 Last Admin: 07/25/22 22:08 Dose: 10 mg Documented By: CLAUDIA Ondansetron HCl (Ondansetron 4 Mg/2 Ml Inj) 4 mg IV NOW PRN PRN Reason: Nausea And Vomiting Pantoprazole Sodium (Pantoprazole 40 Mg Vial) 40 mg IV NOW ONE Stop: 07/25/22 21:44 Last Admin: 07/25/22 22:09 Dose: 40 mg Documented By: CLAUDIA Vital Signs Vital signs: Vital Signs - 8 hr 07/25/22 20:52 07/26/22 00:07 07/25/22 21:49 Temperature 98 F Pulse Rate 70 100 H Respiratory Rate 16 Blood Pressure 104/60 Pulse Oximetry 98 97 Oxygen Delivery Method Room Air Room Air 07/25/22 22:00 07/25/22 22:00 07/25/22 22:30 Temperature Pulse Rate 89 Respiratory Rate Blood Pressure 135/86 101/53 L Pulse Oximetry 98 Oxygen Delivery Method 07/25/22 22:30 07/25/22 23:00 07/25/22 23:00 Temperature Pulse Rate 88 89 Respiratory Rate Blood Pressure 97/54 L Pulse Oximetry 98 98 Oxygen Delivery Method Medical Decision Making Medical Records Medical records reviewed: Yes I reviewed the patient's medical records. Lab Data Lab results reviewed: Yes I reviewed the patient's lab results. 07/25/22 18:47 07/25/22 18:47 Labs: Lab Results 07/25/22 07/25/22 07/25/22 Range/Units 18:47 18:47 18:47 WBC 5.9 (4.5-11.0) X10^3/uL RBC 4.38 (4.0-5.2) X10^6/uL Hgb 12.6 (12.0-16.0) g/dL Hct 37.2 (36-46) % MCV 84.8 (80-100) fL MCH 28.7 (26-34) PG MCHC 33.8 (30-36) % RDW 14.1 (11.6-14.8) % Plt Count 287 (150-400) X10^3/uL Neut % (Auto) 56.6 (50-75) % Lymph % (Auto) 33.0 (25-40) % [place] % (Auto) 8.1 (3-14) % Eos % (Auto) 1.4 L (2-4) % Baso % (Auto) 0.9 (0-2) % Neut # (Auto) 3300 (5455-4309) /uL Lymph # (Auto) 1900 (0937-2545) /uL [place] # (Auto) 500 (0-900) /uL Eos # (Auto) 100 (0-450) /uL Baso # (Auto) 100 (0-100) /uL Sodium 136 L (137-145) mmol/L Potassium 4.2 (3.4-5.1) mmol/L Chloride 100 (98-107) mmol/L Carbon Dioxide 28 (22-32) mmol/L BUN 14 (7-17) mg/dL Creatinine 0.53 (0.52-1.04) mg/dL Estimated GFR > 60 (>60) mL/min BUN/Creatinine Ratio 26.4 H (6-22) Glucose 109 H (70-100) mg/dL Calcium 9.6 (8.4-10.2) mg/dL Total Bilirubin 0.6 (0.2-1.3) mg/dL AST 70 H (14-36) IU/L ALT 98 H (<35) IU/L Alkaline Phosphatase 48 (38-126) U/L Total Protein 8.0 (6.3-8.2) g/dL Albumin 4.8 (3.5-5.0) g/dL Globulin 3.2 (1.7-4.1) g/dL Albumin/Globulin Ratio 1.5 (1.0-2.8) Lipase 134 (23-300) U/L Urine Color Urine Appearance Urine pH (4.5-8.0) Ur Specific [place] (1.000-1.035) Urine Protein (Negative) Urine Glucose (UA) (Negative) g/dL Urine Ketones (NEGATIVE) Urine Occult Blood (Negative) Urine Nitrate (Negative) Urine Bilirubin (NEGATIVE) Urine Urobilinogen (0.2) E.U./dL Ur Leukocyte Esterase (NEGATIVE) Urine RBC (0-5/HPF) Urine WBC (0-5/HPF) Ur Squamous Epith Cells (0-5/HPF) Urine Bacteria (None) Ur Culture Indicated? Urine Test Negative (Negative) 07/25/22 Range/Units 18:47 WBC (4.5-11.0) X10^3/uL RBC (4.0-5.2) X10^6/uL Hgb (12.0-16.0) g/dL Hct (36-46) % MCV (80-100) fL MCH (26-34) PG MCHC (30-36) % RDW (11.6-14.8) % Plt Count (150-400) X10^3/uL Neut % (Auto) (50-75) % Lymph % (Auto) (25-40) % [place] % (Auto) (3-14) % Eos % (Auto) (2-4) % Baso % (Auto) (0-2) % Neut # (Auto) (3836-1271) /uL Lymph # (Auto) (2018-3776) /uL [place] # (Auto) (0-900) /uL Eos # (Auto) (0-450) /uL Baso # (Auto) (0-100) /uL Sodium (137-145) mmol/L Potassium (3.4-5.1) mmol/L Chloride (98-107) mmol/L Carbon Dioxide (22-32) mmol/L BUN (7-17) mg/dL Creatinine (0.52-1.04) mg/dL Estimated GFR (>60) mL/min BUN/Creatinine Ratio (6-22) Glucose (70-100) mg/dL Calcium (8.4-10.2) mg/dL Total Bilirubin (0.2-1.3) mg/dL AST (14-36) IU/L ALT (<35) IU/L Alkaline Phosphatase (38-126) U/L Total Protein (6.3-8.2) g/dL Albumin (3.5-5.0) g/dL Globulin (1.7-4.1) g/dL Albumin/Globulin Ratio (1.0-2.8) Lipase (23-300) U/L Urine Color Yellow Urine Appearance Clear Urine pH 7.5 (4.5-8.0) Ur Specific [place] 1.010 (1.000-1.035) Urine Protein Negative (Negative) Urine Glucose (UA) Negative (Negative) g/dL Urine Ketones Negative (NEGATIVE) Urine Occult Blood Negative (Negative) Urine Nitrate Negative (Negative) Urine Bilirubin Negative (NEGATIVE) Urine Urobilinogen 0.2 (0.2) E.U./dL Ur Leukocyte Esterase Negative (NEGATIVE) Urine RBC None seen (0-5/HPF) Urine WBC None seen (0-5/HPF) Ur Squamous Epith Cells None seen D (0-5/HPF) Urine Bacteria Few (2-10) H (None) Ur Culture Indicated? Cult not indicated Urine Test (Negative) Imaging Data US - abdomen: Radiologist's Impression: PROCEDURE:? US ABDOMEN LIMITED ? INDICATIONS:? RUQ PAIN ? TECHNIQUE:? Real-time scanning was performed of the abdominal and retroperitoneal organs, with image documentation.? ? COMPARISON:? [facility], [place], ABDOMEN COMPLETE, 02/06/2011, 17:01. ? FINDINGS:? ? Liver:? Liver is normal in size and demonstrates diffusely increased echotexture.? Gallbladder:? No gallstones. No gallbladder wall thickening, pericholecystic fluid or sonographic Rivera's sign.? Biliary ducts:? Intrahepatic bile ducts are non-dilated.? Extrahepatic bile duct caliber measures 6 point mm.? Normal is 6-7 mm or less in diameter, or 10 mm or less post-cholecystectomy.? Pancreas:? Obscured by overlying bowel gas.? Miscellaneous:? No free abdominal fluid.? ? ? IMPRESSION:? ? 1.? Diffusely increased hepatic echotexture. This finding is most likely secondary to hepatic fatty infiltration although other hepatocellular disease may have a similar appearance. Recommend clinical correlation. 2. Normal gallbladder.? 3. Pancreas not seen on ultrasound. MDM Narrative Medical decision making narrative: Patient's ultrasound is unremarkable. Labs are unremarkable. I did discuss the nonemergent liver findings on the ultrasound with the patient. She states she knows she is been diagnosed with a fatty liver in the past. Patient has had symptoms specifically with eating and drinking over the past 2 weeks. We discussed the possibilities this is a stomach ulcer. I have low suspicion for ACS. Low suspicion for bowel obstruction. No indication for CT scanning. She is having a left-sided hemiplegic migraine for which she was treated. She states her symptoms have improved but not completely gone. The plan be is to discharge the patient home. I will prescribe Carafate. She stated that she did get some relief of the abdominal pain after the GI cocktail which makes me even more suspicious that this is GI related. Patient was given return precautions and follow-up instructions. She expressed understanding and agreement Discharge Plan Departure Patient Disposition: Home Clinical Impression: Abdominal pain, Migraine Instructions: DI for Abdominal Pain-Adult Activity Restrictions/Additional Instructions: I do recommend that you use the Carafate as directed. I do recommend you contact your primary doctor for a follow-up. Return to the emergency department for new or worsening symptoms. Prescriptions: New sucralfate [Carafate] 100 mg/mL suspension 10 ml PO QACHS Qty: 414 2RF No Action fluoxetine 10 mg capsule 10 mg PO DAILY cetirizine [Zyrtec] 10 mg tablet 10 mg PO DAILY PRN epinephrine 0.3 mg/0.3 mL auto-injector 0.3 mg IM Q5-15M PRN (Reason: anaphylaxis) Qty: 2 0RF Rx Instructions: do not exceed 3 doses per episode prednisone 20 mg tablet 20 mg PO DAILY Qty: 5 0RF Rx Instructions: administer with food or milk ondansetron 4 mg tablet,disintegrating 4 mg PO TID-QID PRN (Reason: nausea and vomiting) Qty: 10 0RF famotidine [Pepcid] 20 mg tablet 20 mg PO DAILY Qty: 7 0RF epinephrine [EpiPen 2-Lj] 0.3 mg/0.3 mL auto-injector 0.3 mg IM Q5-15M PRN (Reason: anaphylaxis) Qty: 2 0RF Rx Instructions: do not exceed 3 doses per episode Referrals: Fiona Doe ARNP [Primary Care Provider] - Stand Alone Forms: Patient Portal/API
[2022-07-25 21:49] VITALS: PULSE 100; O2SAT 97
[2022-07-25 22:00] VITALS: BP 135/86; PULSE 89; O2SAT 98
[2022-07-25] MEDS: MAG HYDROX/ALUMINUM/SIMETH SUS 20 ML, LIDOCAINE VISCOUS 2% 15 ML PO (22:07)
[2022-07-25] MEDS: METOCLOPRAMIDE 10 MG/2 ML INJ IV (22:08)
[2022-07-25] MEDS: PANTOPRAZOLE 40 MG VIAL IV (22:09)
[2022-07-25] MEDS: diphenhydrAMINE 50 MG/ML VIAL 25 MG IV (22:09)
[2022-07-25 22:30] VITALS: BP 101/53; PULSE 88; O2SAT 98
[2022-07-25 23:00] VITALS: BP 97/54; PULSE 89; O2SAT 98
[2022-07-26 00:07] VITALS: BP 104/60; PULSE 70; RESP 16; TEMP 36.6; O2SAT 98
== END 2022-07-26 00:09 | disposition home or self-care (01) ==
PROVIDERS: Emergency Provider Emergency Medicine; PCP Internal Medicine
DX: R10.13 Epigastric pain (principal); G43.909 Migraine, unspecified, not intractable, without status migrainosus
CPT/HCPCS: 36415; 76705; 80053; 81001; 81025; 83690; 85025; 96374; 96375; 99284; C9113; J1200; J2765

== ENCOUNTER 2022-10-19 16:55 | Emergency (ER) | payer OTHER, SELFPAY ==
[2021-11-08 23:15] VITALS: PULSE 92; RESP 15; O2SAT 100
[2022-10-19 17:09] VITALS: BP 135/80; PULSE 108; RESP 18; TEMP 36.6; O2SAT 99; BMI 32.9
--- NOTE | 2022-10-19 17:33 | PC.NURSE ---
Torodol is the IM rescue med she took [employer]
--- NOTE | 2022-10-19 18:09 | PC.NURSE ---
Pt is asking to go home, she would rather be at home. She has nausea, denies wanting medication. Pt stated she did not want an IV, she is A&Ox4. is at bedside, he is a good source of support for her.
[2022-10-19 18:13] VITALS: BP 145/80; PULSE 93; RESP 16; O2SAT 99
--- NOTE | 2022-10-19 18:13 | ED.HA ---
HPI - Headache General Chief Complaint: Headache Stated Complaint: Face twitching, Migraine Time Seen by Provider: 10/19/22 18:02 Source: patient Mode of arrival: Ambulatory History of Present Illness HPI Narrative: Patient is a 37-year-old female. Has a history of hemiplegic migraines. Started to have symptoms consistent with this earlier in the day. She tried all of her normal medications without improvement of the symptoms. She has used epi in the past that has helped her symptoms which she did take. At the time of triage she states that her headache has resolved but she is having twitching all over. She was told to come to the emergency department because she took the EpiPen. Related Data Home Medications Medication Instructions Recorded Confirmed cetirizine 10 mg tablet (Zyrtec) 10 mg PO DAILY PRN 01/04/22 01/09/22 fluoxetine 10 mg capsule 10 mg PO DAILY 01/04/22 01/09/22 Previous Rx's Medication Instructions Recorded epinephrine 0.3 mg/0.3 mL 0.3 mg (0.3 mL) IM Q5-15M PRN 11/12/21 injection, auto-injector anaphylaxis #2 ea epinephrine 0.3 mg/0.3 mL 0.3 mg (0.3 mL) IM Q5-15M PRN 05/03/22 injection, auto-injector (EpiPen anaphylaxis #2 ea 2-Lj) famotidine 20 mg tablet (Pepcid) 20 mg PO DAILY #7 tabs 05/03/22 ondansetron 4 mg disintegrating 4 mg PO TID-QID PRN nausea and 05/03/22 tablet vomiting #10 tabs prednisone 20 mg tablet 20 mg PO DAILY #5 tabs 05/03/22 sucralfate 100 mg/mL oral 10 ml PO QACHS #414 mL 07/25/22 suspension (Carafate) Allergies Allergy/AdvReac Type Severity Reaction Status Date / Time latex [LATEX] Allergy Mild MILD RASH Verified 10/19/22 17:15 Review of Systems Constitutional Constitutional: Reports system reviewed and no additional complaints, except as documented ENT Ears, Nose, Mouth, and Throat: Reports system reviewed and no additional complaints, except as documented Neurologic Neurologic: Reports system reviewed and no additional complaints, except as documented Allergic/Immunologic Allergic/Immunologic: Reports system reviewed and no additional complaints, except as documented Patient History Medical History Chicken pox Depression (~2005) Headache Kidney stones (~2010) Migraines (~2008) Painful menstrual periods Surgical History Anesthesia History of tonsillectomy (~2001) Status post delivery (10/23/11) Status post delivery (07/14/13) Family History Grandfather No problems noted. Social History Smoking Status: Never smoker Smoking Status: Never smoker alcohol intake frequency: other Substance Use Type: does not use Exam Initial Vital Signs Initial Vital Signs: Vital Signs Temperature 97.9 F 10/19/22 17:09 Pulse Rate 108 H 10/19/22 17:09 Respiratory Rate 18 10/19/22 17:09 Blood Pressure 135/80 10/19/22 17:09 Pulse Oximetry 99 10/19/22 17:09 Oxygen Delivery Method Room Air 10/19/22 17:09 HENMT Head: normal to inspection and normocephalic Resp Effort & Inspection: normal respiratory effort Cardio Rate: regular rate Neuro General: patient alert, patient awake, patient oriented x3 and moves all extremities Cognition: normal cognition Speech: speech normal Course Orders Ordered: ED Orders 10/19/22 17:30 EKG-12 Lead Stat Vital Signs Vital signs: Vital Signs - 8 hr 10/19/22 17:09 Temperature 97.9 F Pulse Rate 108 H Respiratory Rate 18 Blood Pressure 135/80 Pulse Oximetry 99 Oxygen Delivery Method Room Air MDM - Headache ECG Data Attestation: I personally reviewed and interpreted this ECG as follows: Interpretation: Sinus tachycardia Ventricular rate 104 Normal QRS Normal QTC No ST T wave changes MDM Narrative Medical decision making narrative: Patient was observed here in the emergency department for a period of time prior to my initial evaluation. When I evaluated the patient's she said there headache was gone and she felt well enough that she would like to go home. No further workup required here in the emergency department. She was given return precautions. She expressed understanding and agreement. Discharge Plan Departure Patient Disposition: Home Clinical Impression: Migraine, Twitching Instructions: DI for Migraine Activity Restrictions/Additional Instructions: Continue to take all of your medications as directed. Contact your primary doctor for follow-up. Return to the emergency department for new or worsening symptoms. Prescriptions: No Action fluoxetine 10 mg capsule 10 mg PO DAILY cetirizine [Zyrtec] 10 mg tablet 10 mg PO DAILY PRN sucralfate [Carafate] 100 mg/mL suspension 10 ml PO QACHS Qty: 414 2RF epinephrine 0.3 mg/0.3 mL auto-injector 0.3 mg IM Q5-15M PRN (Reason: anaphylaxis) Qty: 2 0RF Rx Instructions: do not exceed 3 doses per episode prednisone 20 mg tablet 20 mg PO DAILY Qty: 5 0RF Rx Instructions: administer with food or milk ondansetron 4 mg tablet,disintegrating 4 mg PO TID-QID PRN (Reason: nausea and vomiting) Qty: 10 0RF famotidine [Pepcid] 20 mg tablet 20 mg PO DAILY Qty: 7 0RF epinephrine [EpiPen 2-Lj] 0.3 mg/0.3 mL auto-injector 0.3 mg IM Q5-15M PRN (Reason: anaphylaxis) Qty: 2 0RF Rx Instructions: do not exceed 3 doses per episode Referrals: Fiona Doe ARNP [Primary Care Provider] - Stand Alone Forms: Patient Portal/API
== END 2022-10-19 18:23 | disposition home or self-care (01) ==
PROVIDERS: Emergency Provider Emergency Medicine; PCP Internal Medicine
DX: G43.909 Migraine, unspecified, not intractable, without status migrainosus (principal); R25.3 Fasciculation; R07.9 Chest pain, unspecified
CPT/HCPCS: 93005; 99281; 99283